=== PATIENT | female | born 1940 | race Caucasian/White ===

== ENCOUNTER 2016-05-05 15:48 | Emergency (ER) | payer MEDICARE ==
[2016-05-15 15:51] VITALS: BMI 24.1
== END 2016-05-05 18:00 | disposition home or self-care (01) ==
LOC: D.ER 15:48
DX: S22.059A Unspecified fracture of T5-T6 vertebra, initial encounter for closed fracture (principal); S22.089A Unspecified fracture of T11-T12 vertebra, initial encounter for closed fracture; X58.XXXA Exposure to other specified factors, initial encounter; Y93.89 Activity, other specified; Y92.89 Other specified places as the place of occurrence of the external cause; I10 Essential (primary) hypertension; E78.00 Pure hypercholesterolemia, unspecified

== ENCOUNTER → 2016-05-09 11:20 | Outpatient (CLI) | payer MEDICARE ==
[~2016-05-09 11:20] MED LIST: BAYER CHEWABLE81 MG PO; FELODIPINE ER10 MG PO; LIPITOR80 MG PO; PRINIVIL20 MG PO; PROLIA INJ 660 MG/M1 IJ; VOLTAREN75 MG PO; ZETIA10 MG PO
[2016-05-15 15:51] VITALS: BMI 24.1
== END | disposition home or self-care (01) ==
LOC: D.MRI 11:20
DX: S22.089A Unspecified fracture of T11-T12 vertebra, initial encounter for closed fracture (principal)

== ENCOUNTER 2016-05-14 12:45 | Inpatient (IN) | payer MEDICARE ==
[~2016-05-14] VITALS: Ht 154.9 cm; Wt 61.0 kg
--- NOTE | ~2016-05-14 | CN ---
PATIENT NAME:FOSTER DUQUE MEDICAL RECORD: [id number] : 42 LOCATION:[id number] ADMIT DATE: 05/14/16 ACCOUNT: [id number] CONSULTING PHYSICIAN: ANNMARIE KRISHNA MD REFERRING PHYSICIAN: KONG RAWLS MD DATE OF CONSULTATION: 05/24/2016 CONSULT REQUESTING PHYSICIAN: Kong Rawls MD REASON FOR CONSULTATION: Acute stridor and shortness of breath. HISTORY OF PRESENT ILLNESS: Ms. Duque is a 76-year-old female, who was admitted on 05/14/2016 with acute mental status changes, dehydration, hyponatremia and ileus. The patient underwent colonoscopy today and post-procedure, the patient has a stridor and shortness of breath. She was given racemic nebulizer and methylprednisolone IV, now she is feeling a little bit better. The patient is confused and she is a very poor historian. According to the , she is smoking 2-3 packs per day for more than 50 years. The patient had no documented COPD. She is not on any home nebulizer. She is not on oxygen. The patient denies any chest pain. REVIEW OF SYSTEMS: Mainly in the history of present illness. PAST MEDICAL HISTORY: 1. Hypertension. 2. History of CVA and TIA in the past. 3. History of vertigo. PAST SURGICAL HISTORY: 1. Hysterectomy. 2. She has a tummy tuck surgery. 3. D&C. ALLERGIES: SHE IS ALLERGIC TO FISH DERIVED CALCIUM AND INFLUENZA VIRUS VACCINE. PRESENT MEDICATIONS: On Pluristem Therapeuticstech was reviewed. PERSONAL AND SOCIAL HISTORY: The patient is . She lives with her . She is smoking more than 653-ounh-cebj history of smoking. She is also drinking. FAMILY HISTORY: Significant for lung disease and cancer. PHYSICAL EXAMINATION: GENERAL: Now, the patient is lying comfortably. She is not in acute distress. VITAL SIGNS: The blood pressure is 166/61, pulse is 111, respirations 20, temperature is 97.9, and SpO2 is 90% on 3 liter nasal cannula. HEENT: Conjunctivae pink, sclerae nonicteric. NECK: Neck is supple, no JVD. CHEST: The chest excursion is minimal on both sides. There is wheeze on forceful expiration. There are crackles at the left base. HEART: Rhythm regular, normal sound, no murmur. ABDOMEN: Abdomen is soft. Bowel sounds are muffled. There is no tenderness. RECTAL: Deferred. EXTREMITIES: No cyanosis. No clubbing. No pedal edema. CONSULT REPORT [id number] FOSTER DUQUE SKIN: The skin is warm and normal turgor. CENTRAL NERVOUS SYSTEM: The patient is awake and alert. There is no obvious cranial nerve abnormality. The patient is confused. CHEST RADIOGRAPH: There is atelectasis in the left lower lobe. OTHER LABORATORY DATA: CBC: WBC 6.7, hemoglobin is 8.3, and hematocrit is 26.3. Chemistry: Sodium is 146, potassium 3, chloride 111, and bicarbonate is 23.5. ABG: The pH is 7.46, pCO2 is 31.1, pO2 is 64, and bicarb is 22.4. IMPRESSION: 1. Acute hypoxic respiratory failure. 2. Stridor post-procedure, possible vocal cord spasm, aspirating her own secretions secondary to conscious sedation and post-colonoscopy. 3. Chronic obstructive pulmonary disease, acute exacerbation. 4. Tobacco dependence syndrome. 5. Anemia. 6. Hypernatremia of 146. 7. Hypokalemia. 8. Ileus and intestinal obstruction. 9. Hocqi-wl-dtxqelv kidney disease. 10. Metabolic encephalopathy. RECOMMENDATION: 1. Start methylprednisolone IV, Brovana, budesonide nebulizer, albuterol/ipratropium nebulizer. 2. Continue Levaquin and Flagyl. 3. Follow up labs in the morning. 4. Adjust IV fluid. 5. For hypernatremia, Dr. Salmeron and GI is on the case. Dr. Rawls, once again thank you for involving me in the care of Ms. Duqeu. The critical care time is 45 minutes. TRANSINT:[id number] Voice Confirmation ID: [id number] DOCUMENT ID: [id number] ANNMARIE KRISHNA MD CC: KONG RAWLS MD [id number] DICTATION DATE: 05/24/16 1548 RADIOLOGY TRANSCRIPTIONIST: 05/24/16 1901 ADM IN [facility] [address] [place] [address]
[2016-05-14 15:17] LABS: HEMATOCRIT 38.2 % (36.0-48.0); MCH 29.8 pg (26.0-34.0); MCV 87.6 fL (80.0-100.0); MEAN PLATELET VOLUME 11.5 fL (7.4-10.4); PLATELET COUNT 373 10x3/uL (130-400); RBC 4.36 10x6/uL (4.00-5.40); RDW 14.7 % (11.5-14.5); WBC 15.4 10x3/uL (4.8-10.8)
[2016-05-14 15:41] LABS: ALBUMIN 2.4 g/dL (3.4-5.0); ALKALINE PHOSPHATASE 343 U/L (46-116); ALT (SGPT) 86 U/L (10-68); BILIRUBIN - TOTAL 1.36 mg/dL (0.2-1.3); CALC OSMOLALITY 293 mosm/kg (275-300); CALCIUM 8.3 mg/dL (8.5-10.1); CARBON DIOXIDE 17.8 mmol/L (21.0-32.0); CHLORIDE - SERUM 90 mmol/L (98-107); CREATININE - SERUM 2.8 mg/dL (0.6-1.3); GLUCOSE 110 mg/dL (74-106); PROTEIN - SERUM 6.5 g/dL (6.4-8.2); SODIUM 128 mmol/L (136-145); UREA NITROGEN 114 mg/dL (7-18); eGFR NON AFRICAN AMERICAN 17 mL/min (90-120)
[2016-05-14 15:48] LABS: CREATINE KINASE 302 UL (21-215); LYMPHOCYTES 15 % (15-50); MONOCYTES 4 % (2-11); NEUTROPHILS 48 % (40-80); PLATELET ESTIMATE NORMAL; PRO BNP 2796 pg/mL (0-125)
[2016-05-14 16:08] LABS: TROPONIN-I < 0.017 ng/mL (0.000-0.060)
[2016-05-14 16:09] LABS: MAGNESIUM - SERUM 3.5 mg/dL (1.8-2.4)
[2016-05-14 16:18] LABS: AMORPHOUS SEDIMENT <1+ /lpf (NONE SEEN); APPEARANCE CLOUDY (CLEAR); BACTERIA MANY /hpf (NONE SEEN); BILIRUBIN NEGATIVE (NEGATIVE); COLOR DK YELLOW (YELLOW); EPITHELIAL CELLS 0-5 /hpf (0-5); GLUCOSE NEGATIVE (NEGATIVE); KETONE NEGATIVE (NEGATIVE); LEUKOCYTE ESTERASE TRACE (NEGATIVE); NITRITE NEGATIVE (NEGATIVE); PROTEIN NEGATIVE (NEGATIVE); RED CELLS - URINE 0-5 /hpf (0-5); UROBILINOGEN NORMAL (NORMAL); WHITE CELLS - URINE 0-5 /hpf (0-5)
[2016-05-14 16:31] LABS: CKMB 3.3 U/L (0.0-3.6)
--- NOTE | 2016-05-14 18:55 | NUR ---
Patient Name: FOSTER DUQUE Admission Status: ER Accout number: [id number] Admission Date: 05-14-2016 : 1940 Admission Diagnosis: AMS, Dehydration Attending: KESHA Current LOS: 1 Anticipated DC Date: 05-17-2016 Planned Disposition: Home Primary Insurance: [facility] Discharge Planning Comments: CM met with patient and her spouse to completes initial discharge assessment. Patient confused and not able to answer questions. Spouse reports patient lives at home with him and is usually independent in her care. He reports new onset of confusion the past two weeks. She had a stroke several years ago and has weakness on her left side but is still normally able to do all her ADL's. Patient does not use dme equipment nor does she use community resources. When patient is stable for discharge the goal is for patient to return home with him. He is unsure of any dc needs at this time. Opera Singer: Joana Collazo RN, [facility] [phone] Is the patient Alert and Oriented? No * PCP Dr. Cooper * Pharmacy [facility] * Preadmission Environment Home with Family * ADLs Independent * Equipment None * List name and contact numbers for known caregivers / representatives who currently or will assist patient after discharge: Daren Duque - spouse - [phone] * Community resources currently utilized None * Additional services required to return to the preadmission environment? Yes * Can the patient safely return to the preadmission environment? Yes * Has this patient been hospitalized within the prior 30 days at any hospital? No
[2016-05-14 19:00] VITALS: BP 94/56
[2016-05-15] MEDS ORDERED: VOLTAREN75 MG PO (02:00)
--- NOTE | 2016-05-15 02:14 | NUR ---
REC'D PATIENT LYING SEMI FOWLERS IN BED. IN ROOM WITH. DID THE QUICK START AND ASSESSMENT HISTORY. INFORMED NURSE CESAR YAN ABT THE PHYICAL ASSESSMENT THAT NEEDS TO BE DONE. NO DISTRESS NOTED. PATIENT ALERT AND ORIENTED X3. HAS A BYNUM. HAS A YELLOW BAND ON AND AN ALLERGY BAND ON WILL PLACE A YELLOW STAR ON THE DOOR TO INITIATE FALL PRECAUTIONS. DENIES NEEDS AT THIS TIME. INTRUCTED TO CALL IF NEEDED ANYTHING. VERBALIZED UNDERSTANDING. BED LOW, LOCKED, CALL LIGHT IN REACH.
[2016-05-15 04:00] VITALS: BP 82/43
[2016-05-15 06:20] LABS: ANION GAP 24.8 mmol/L (8-16); CALCIUM 7.2 mg/dL (8.5-10.1); CARBON DIOXIDE 14.9 mmol/L (21.0-32.0); CREATININE - SERUM 2.8 mg/dL (0.6-1.3)
[2016-05-15 06:23] LABS: POTASSIUM - SERUM 3.7 mmol/L (3.5-5.1)
--- NOTE | 2016-05-15 07:30 | NUR ---
AWAKE AND ALERT AT THIS TIME. CONFUSED TO TIME AND SITUATION. BED ALARM ON AND IN WORKING ORDER. SCD'S APPLIED TO BLE PER ORDER. ASSESSMENT PERFORMED PER FLOWSHEET. CALL LIGHT IN REACH, WILL CONTINUE WITH PLAN OF CARE.
[2016-05-15 08:01] VITALS: BMI 24.2
[2016-05-15 08:04] VITALS: BP 81/41
--- NOTE | 2016-05-15 09:00 | NUR ---
URINE CULTURE OBTAINED AT THIS TIME. DR SEGURA AT BEDSIDE EVALUATING PATIENT. WILL CONTINUE WITH PLAN OF CARE.
[2016-05-15] MEDS ORDERED: FELODIPINE ER10 MG PO (09:32)
[2016-05-15] MEDS ORDERED: ZETIA10 MG PO (09:33)
[2016-05-15] MEDS ORDERED: PRINIVIL20 MG PO (09:33)
[2016-05-15] MEDS ORDERED: BAYER CHEWABLE81 MG PO (09:33)
[2016-05-15] MEDS ORDERED: LIPITOR80 MG PO (09:33)
[2016-05-15] MEDS ORDERED: PROLIA INJ 660 MG/M1 IJ (09:34)
[2016-05-15 11:47] LABS: PROTEIN - URINE 161.4 mg/dL (0.0-11.9)
--- NOTE | 2016-05-15 11:47 | NUR ---
ORDERED FLUID BOLUS STARTED AT THIS TIME. BP 101/50 AND HEART RATE 113. HAVING AN ABDOMINAL ULTRASOUND AT THIS TIME. WILL CONTINUE WITH PLAN OF CARE.
[2016-05-15 11:50] LABS: AMYLASE - SERUM 47 U/L (25-115); LIPASE 173 U/L (73-393)
[2016-05-15 12:11] VITALS: BP 86/49
[2016-05-15 12:49] VITALS: BP 106/55
--- NOTE | 2016-05-15 12:49 | NUR ---
BOLUS COMPLETE ORDERED AT THIS TIME. BP 106/55 AND PULSE 99.
[2016-05-15 13:02] LABS: ERYTHROCYTE SEDIMENTATION RATE 16 mm/hr (0-30)
[2016-05-15 15:10] VITALS: BP 132/70
[2016-05-15 15:51] VITALS: Ht 154.9 cm; Wt 61.0 kg
[2016-05-15 17:28] LABS: APPEARANCE HAZY (CLEAR); BILIRUBIN NEGATIVE (NEGATIVE); COLOR DK YELLOW (YELLOW); GLUCOSE NEGATIVE (NEGATIVE); KETONE NEGATIVE (NEGATIVE); LEUKOCYTE ESTERASE TRACE (NEGATIVE); NITRITE NEGATIVE (NEGATIVE); PROTEIN TRACE mg/dL (NEGATIVE); SPECIFIC GRAVITY 1.015 (1.005-1.020); UROBILINOGEN NORMAL (NORMAL)
[2016-05-15 17:29] LABS: AMORPHOUS SEDIMENT >1+ /lpf (NONE SEEN); BACTERIA MODERATE /hpf (NONE SEEN); EPITHELIAL CELLS 0-5 /hpf (0-5); RED CELLS - URINE 0-5 /hpf (0-5); WHITE CELLS - URINE 0-5 /hpf (0-5)
[2016-05-15 17:36] LABS: PROTEIN - URINE 112.1 mg/dL (0.0-11.9)
--- NOTE | 2016-05-15 23:14 | NUR ---
REC'D PATIENT LYING IN BED WATCHING TV. NO DISTRESS NOTED. ALERT AND ORIENTED X4. DENIED PAIN AT THIS TIME. DENIED ANY NEEDS AT THIS TIME. INSTRUCTED TO CALL IF NEEDED ANYTHING. BED LOW, LOCKED, CALL LIGHT IN REACH, ALARM ON.
[2016-05-16] VITALS: BP 99/601
--- NOTE | 2016-05-16 01:55 | NUR ---
HAD A BATH AND A FULL BED CHANGE. IS RESTING COMFORTABLY IN BED. DENIES NEEDS AT THIS TIME. BED LOW, LOCKED, CALL LIGHT IN REACH, ALARM ON.
--- NOTE | 2016-05-16 03:00 | NUR ---
PT IN BED WITH NO DISTRESS. RESPIRATIONS ARE EVEN AND UNLABORED. SIDE RAILS X 2. BED IS LOW. CALL LIGHT IN REACH.
--- NOTE | 2016-05-16 03:34 | NUR ---
CHANGED PATIENT HAD LOOSE BM, CHANGED GOWN. NO DISTRESS NOTED. DENIED FURTHER NEEDS, INTRUCTED TO CALL IF NEEDED ANYTHING. BED LOW, LOCKED, CALL LIGHT IN REACH, REPO, ALARM ON.
[2016-05-16 04:00] VITALS: BP 95/51
[2016-05-16 07:19] LABS: BASOPHILS 0 % (0.0-2.0); HEMATOCRIT 28.1 % (36.0-48.0); HEMOGLOBIN 9.9 g/dL (12-16); IMMATURE GRANULOCYTES 1.4 % (0-5); LYMPHOCYTES 4.5 % (15-50); MCH 29.1 pg (26.0-34.0); MCHC 35.2 g/dL (31.0-37.0); MCV 82.6 fL (80.0-100.0); MEAN PLATELET VOLUME 10.4 fL (7.4-10.4); NEUTROPHILS 91.1 % (40-80); PLATELET COUNT 220 10x3/uL (130-400); RDW 14.4 % (11.5-14.5); WBC 8.1 10x3/uL (4.8-10.8)
[2016-05-16 08:09] LABS: BILIRUBIN - DIRECT 0.57 mg/dL (0.00-0.30); BILIRUBIN - INDIRECT 0.22 mg/dL (0.00-1.00); BILIRUBIN - TOTAL 0.79 mg/dL (0.2-1.3); MAGNESIUM - SERUM 2.7 mg/dL (1.8-2.4); PHOSPHOROUS 4.6 mg/dL (2.5-4.9); PROTEIN - SERUM 5.4 g/dL (6.4-8.2)
[2016-05-16 08:10] LABS: ALBUMIN 1.4 g/dL (3.4-5.0); ANION GAP 13.9 mmol/L (8-16); CARBON DIOXIDE 25.7 mmol/L (21.0-32.0); CREATININE - SERUM 1.8 mg/dL (0.6-1.3)
[2016-05-16 08:11] LABS: CALCIUM 6.2 mg/dL (8.5-10.1); POTASSIUM - SERUM 2.6 mmol/L (3.5-5.1)
[2016-05-16 08:39] VITALS: BP 105/49
[2016-05-16 10:20] LABS: CREATINE KINASE 330 UL (21-215)
[2016-05-16 10:24] LABS: CKMB 3.5 U/L (0.0-3.6)
[2016-05-16 11:17] LABS: ANA REFLEX - DIRECT Negative (Negative); HEPATITIS C ANTIBODY <0.1 (0.0-0.9)
[2016-05-16 15:45] LABS: BASOPHILS 0.1 % (0.0-2.0); EOSINOPHILS 1.4 % (0-7); HEMATOCRIT 30.7 % (36.0-48.0); HEMOGLOBIN 10.7 g/dL (12-16); IMMATURE GRANULOCYTES 0.8 % (0-5); LYMPHOCYTES 6.7 % (15-50); MCH 29.2 pg (26.0-34.0); MCHC 34.9 g/dL (31.0-37.0); MCV 83.9 fL (80.0-100.0); MEAN PLATELET VOLUME 10.9 fL (7.4-10.4); MONOCYTES 1.8 % (2-11); NEUTROPHILS 89.2 % (40-80); PLATELET COUNT 216 10x3/uL (130-400); RBC 3.66 10x6/uL (4.00-5.40); RDW 14.3 % (11.5-14.5); WBC 7.1 10x3/uL (4.8-10.8)
[2016-05-16 17:04] VITALS: BP 88/42
[2016-05-16 17:50] VITALS: BP 92/57
[2016-05-16 18:09] LABS: SPE - A/G RATIO 0.6 (0.7-1.7); SPE - ALBUMIN 1.9 g/dL (2.9-4.4); SPE - ALPHA-1 GLOBULIN 0.7 g/dL (0.0-0.4); SPE - ALPHA-2 GLOBULIN 1.4 g/dL (0.4-1.0); SPE - BETA GLOBULIN 0.7 g/dL (0.7-1.3); SPE - GAMMA GLOBULIN 0.6 g/dL (0.4-1.8); SPE - M-SPIKE Not Observed g/dL (Not Observed); SPE - TOTAL PROTEIN 5.2 g/dL (6.0-8.5)
[2016-05-16 19:00] VITALS: BP 89/52
--- NOTE | 2016-05-16 20:54 | NUR ---
PATIENT RESTING IN BED. ALERT AND ORIENTED. ASSISTED TO RIGHT SIDE. SCHEDULED MEDICATION GIVEN. SHIFT ASSESSMENT COMPLETED. DENIES ANY NEEDS AT THIS TIME. BED LOW. CALL LIGHT IN REACH
[2016-05-16 21:34] LABS: BASOPHILS 0.1 % (0.0-2.0); EOSINOPHILS 1.4 % (0-7); HEMATOCRIT 28.1 % (36.0-48.0); IMMATURE GRANULOCYTES 0.7 % (0-5); MCH 29.4 pg (26.0-34.0); MCHC 35.6 g/dL (31.0-37.0); MCV 82.6 fL (80.0-100.0); MEAN PLATELET VOLUME 10.2 fL (7.4-10.4); MONOCYTES 8.3 % (2-11); NEUTROPHILS 83.5 % (40-80); PLATELET COUNT 194 10x3/uL (130-400); RDW 14.5 % (11.5-14.5); WBC 7.7 10x3/uL (4.8-10.8)
[2016-05-17] VITALS: BP 92/45
[2016-05-17 04:00] VITALS: BP 87/57
--- NOTE | 2016-05-17 04:00 | NUR ---
PATIENT SLEEPING WITH NO DISTRESS NOTED. AGREE WITH DOCENT COORDINATOR ASSESSMENT.
[2016-05-17 05:16] LABS: BASOPHILS 0.3 % (0.0-2.0); EOSINOPHILS 1.8 % (0-7); HEMATOCRIT 29.6 % (36.0-48.0); HEMOGLOBIN 10.3 g/dL (12-16); IMMATURE GRANULOCYTES 0.3 % (0-5); LYMPHOCYTES 5.6 % (15-50); MCH 28.9 pg (26.0-34.0); MCHC 34.8 g/dL (31.0-37.0); MCV 82.9 fL (80.0-100.0); MEAN PLATELET VOLUME 10.2 fL (7.4-10.4); PLATELET COUNT 195 10x3/uL (130-400); RBC 3.57 10x6/uL (4.00-5.40); RDW 14.3 % (11.5-14.5); WBC 7.4 10x3/uL (4.8-10.8)
[2016-05-17 05:34] LABS: % SATURATION 11 % (15-55); IRON 19 ug/dl (35-150); TOTAL IRON BIND CAPACITY 159 ug/dl (260-445); UNSAT IRON BIND CAPACITY 140 ug/dl (150-375)
[2016-05-17 06:08] LABS: ALBUMIN 1.3 g/dL (3.4-5.0); ANION GAP 14.5 mmol/L (8-16); BILIRUBIN - TOTAL 0.9 mg/dL (0.2-1.3); CARBON DIOXIDE 27.1 mmol/L (21.0-32.0); CREATININE - SERUM 1.5 mg/dL (0.6-1.3); POTASSIUM - SERUM 3.6 mmol/L (3.5-5.1); PROTEIN - SERUM 4.6 g/dL (6.4-8.2)
[2016-05-17 06:09] LABS: CALCIUM 6.9 mg/dL (8.5-10.1)
[2016-05-17 08:33] VITALS: BP 98/58
[2016-05-17 12:00] VITALS: BP 95/51
--- NOTE | 2016-05-17 14:27 | NUR ---
NUTRITION MONITORING & EVAL CHART REVIEWED, PT VISIT, SPOKE WITH SPOUSE. RENAL DIET WITH VERY POOR PO INTAKE. SPOUSE REPORTS PT HAS HAD POOR PO INTAKE PAST TWO WEEKS. NOW ASSESSED WITH SEVERE MALNUTRITION OF ACUTE ILLNESS AEB 1)=/< 50% INTAKE EST ENERGY NEEDS =/> 5 DAYS 2)REDUCED STICK ROLLER STRENGTH WILL CONTINUE TO PROVIDE DIET, ENCOURAGE PO INTAKE. RD FOLLOWING
[2016-05-17 14:58] LABS: BASOPHILS 0.4 % (0.0-2.0); EOSINOPHILS 0.5 % (0-7); HEMATOCRIT 31.2 % (36.0-48.0); HEMOGLOBIN 10.6 g/dL (12-16); IMMATURE GRANULOCYTES 0.7 % (0-5); LYMPHOCYTES 6.6 % (15-50); MEAN PLATELET VOLUME 10.2 fL (7.4-10.4); MONOCYTES 9.4 % (2-11); NEUTROPHILS 82.4 % (40-80); PLATELET COUNT 167 10x3/uL (130-400); RBC 3.66 10x6/uL (4.00-5.40); RDW 14.6 % (11.5-14.5); WBC 8.5 10x3/uL (4.8-10.8)
[2016-05-17 15:04] LABS: MCV 85.2 fL (80.0-100.0)
[2016-05-17 15:17] LABS: CREATININE - URINE 27.3 mg/dL (30-125); PROTEIN - URINE 90.2 mg/dL (0.0-11.9)
[2016-05-17 20:00] VITALS: BP 159/72
[2016-05-17 20:45] LABS: IMMUNOFIXATION Note: (()); IMMUNOGLOBULIN A 124 mg/dL (64-422); IMMUNOGLOBULIN G 324 mg/dL (700-1600); IMMUNOGLOBULIN M 178 mg/dL (26-217); SPE - A/G RATIO 0.6 (0.7-1.7); SPE - ALBUMIN 1.6 g/dL (2.9-4.4); SPE - ALPHA-1 GLOBULIN 0.6 g/dL (0.0-0.4); SPE - ALPHA-2 GLOBULIN 1.2 g/dL (0.4-1.0); SPE - BETA GLOBULIN 0.6 g/dL (0.7-1.3); SPE - GAMMA GLOBULIN 0.4 g/dL (0.4-1.8); SPE - M-SPIKE Not Observed g/dL (Not Observed); SPE - TOTAL PROTEIN 4.3 g/dL (6.0-8.5)
--- NOTE | 2016-05-17 20:47 | NUR ---
AWAKE WITH NO COMPLAINTS.IV INFUSING TO UPPER LEFT ARM WIHTOUT REDNESS OR EDEMA NOTED. CL IN REACH.
[2016-05-17 21:35] LABS: BASOPHILS 0.6 % (0.0-2.0); EOSINOPHILS 0.4 % (0-7); HEMATOCRIT 32.7 % (36.0-48.0); HEMOGLOBIN 11.3 g/dL (12-16); IMMATURE GRANULOCYTES 1.2 % (0-5); LYMPHOCYTES 5.1 % (15-50); MCH 29.2 pg (26.0-34.0); MCHC 34.6 g/dL (31.0-37.0); MCV 84.5 fL (80.0-100.0); MEAN PLATELET VOLUME 10.5 fL (7.4-10.4); MONOCYTES 6.9 % (2-11); NEUTROPHILS 85.8 % (40-80); PLATELET COUNT 179 10x3/uL (130-400); RBC 3.87 10x6/uL (4.00-5.40); RDW 14.6 % (11.5-14.5); WBC 9.1 10x3/uL (4.8-10.8)
[2016-05-18] VITALS: BP 161/68
--- NOTE | 2016-05-18 00:47 | NUR ---
WATCHING TV QUIETLY. NO COMPLAINTS VOICED.
--- NOTE | 2016-05-18 03:02 | NUR ---
PATIENT SLEEPING SUPINE IN BED. HOB 30 DEGREES. 0 S/S OF DISTRESS. SCD'S IN ROOM BUT OFF. CALL LIGHT WITHIN REACH.
[2016-05-18 04:00] VITALS: BP 144/86
--- NOTE | 2016-05-18 06:05 | NUR ---
NO CHANGE IN ASSESSMENT.
[2016-05-18 06:36] LABS: ALBUMIN 1.5 g/dL (3.4-5.0); ANION GAP 14.4 mmol/L (8-16); BILIRUBIN - TOTAL 1.3 mg/dL (0.2-1.3); CARBON DIOXIDE 26.7 mmol/L (21.0-32.0); POTASSIUM - SERUM 3.1 mmol/L (3.5-5.1); PROTEIN - SERUM 5.2 g/dL (6.4-8.2)
[2016-05-18 06:39] LABS: CALCIUM 8.9 mg/dL (8.5-10.1); HEMATOCRIT 32.6 % (36.0-48.0); HEMOGLOBIN 11.2 g/dL (12-16); MCH 29.2 pg (26.0-34.0); MCHC 34.4 g/dL (31.0-37.0); MCV 85.1 fL (80.0-100.0); MEAN PLATELET VOLUME 10.9 fL (7.4-10.4); PLATELET COUNT 174 10x3/uL (130-400); RBC 3.83 10x6/uL (4.00-5.40); RDW 14.8 % (11.5-14.5); WBC 9.8 10x3/uL (4.8-10.8)
[2016-05-18 07:16] LABS: LYMPHOCYTES 6 % (15-50); MONOCYTES 8 % (2-11); NEUTROPHILS 54 % (40-80); PLATELET ESTIMATE NORMAL; PLATELET MORPHOLOGY NORMAL PLT MORPH
[2016-05-18 08:20] VITALS: BP 168/77
[2016-05-18 12:36] VITALS: BP 152/74
[2016-05-18 14:23] LABS: UPE RAND - ALPHA 1 GLOBULIN 3.4 % (()); UPE RAND - ALPHA 2 GLOBULIN 29.7 % (()); UPE RAND - BETA GLOBULIN 23.5 % (()); UPE RAND - GAMMA GLOBULIN 25.4 % (())
[2016-05-18 16:08] VITALS: BP 141/69
[2016-05-18 18:43] LABS: BASOPHILS 0.5 % (0.0-2.0); EOSINOPHILS 0.7 % (0-7); HEMOGLOBIN 10.3 g/dL (12-16); IMMATURE GRANULOCYTES 1.5 % (0-5); LYMPHOCYTES 10.2 % (15-50); MCHC 34.3 g/dL (31.0-37.0); MCV 84.5 fL (80.0-100.0); MEAN PLATELET VOLUME 10.6 fL (7.4-10.4); MONOCYTES 9.9 % (2-11); NEUTROPHILS 77.2 % (40-80); PLATELET COUNT 157 10x3/uL (130-400); RBC 3.55 10x6/uL (4.00-5.40); RDW 14.4 % (11.5-14.5); WBC 9.4 10x3/uL (4.8-10.8)
[2016-05-18 20:00] VITALS: BP 153/59
[2016-05-18 20:08] LABS: IMMUNOFIXATION - URINE Note: (())
[2016-05-18 22:53] LABS: BASOPHILS 0.4 % (0.0-2.0); EOSINOPHILS 1.1 % (0-7); HEMATOCRIT 29.1 % (36.0-48.0); HEMOGLOBIN 9.9 g/dL (12-16); IMMATURE GRANULOCYTES 0.4 % (0-5); LYMPHOCYTES 10.2 % (15-50); MCH 28.9 pg (26.0-34.0); MCV 85.1 fL (80.0-100.0); MEAN PLATELET VOLUME 11.2 fL (7.4-10.4); MONOCYTES 8.8 % (2-11); NEUTROPHILS 79.1 % (40-80); PLATELET COUNT 147 10x3/uL (130-400); RBC 3.42 10x6/uL (4.00-5.40); RDW 14.5 % (11.5-14.5)
[2016-05-19] VITALS: BP 161/76
[2016-05-19 03:24] LABS: BASOPHILS 0.2 % (0.0-2.0); EOSINOPHILS 0.8 % (0-7); HEMATOCRIT 29.7 % (36.0-48.0); IMMATURE GRANULOCYTES 0.8 % (0-5); LYMPHOCYTES 10.6 % (15-50); MCH 28.7 pg (26.0-34.0); MCHC 33.7 g/dL (31.0-37.0); MCV 85.3 fL (80.0-100.0); MONOCYTES 14.6 % (2-11); PLATELET COUNT 127 10x3/uL (130-400); RBC 3.48 10x6/uL (4.00-5.40); RDW 14.5 % (11.5-14.5); WBC 6.4 10x3/uL (4.8-10.8)
[2016-05-19 03:43] LABS: ALBUMIN 1.3 g/dL (3.4-5.0); BILIRUBIN - TOTAL 1.44 mg/dL (0.2-1.3); CALCIUM 8.4 mg/dL (8.5-10.1); CARBON DIOXIDE 27.8 mmol/L (21.0-32.0); CREATININE - SERUM 0.8 mg/dL (0.6-1.3); PROTEIN - SERUM 5.6 g/dL (6.4-8.2)
[2016-05-19 03:44] LABS: ANION GAP 10.1 mmol/L (8-16); POTASSIUM - SERUM 2.9 mmol/L (3.5-5.1)
[2016-05-19 05:00] VITALS: BP 167/72
--- NOTE | 2016-05-19 07:30 | NUR ---
RECIEVED PT DURING WALKING ROUNDS, PT RESTING IN BED WITH COMPLAINTS OF PAIN IN HER BACK OF A 4 ON A SCALE OF 1-10. READJUSTED PT IN BED. ASSESSMENT DONE PER FLOWSHEET. BED IN LOW POSITION AND CALL LIGHT WITHIN REACH. WILL CONTINUE TO MONITOR.
[2016-05-19 07:35] VITALS: BP 177/72
[2016-05-19 09:47] LABS: BASOPHILS 2.1 % (0.0-2.0); EOSINOPHILS 0.6 % (0-7); HEMATOCRIT 30.2 % (36.0-48.0); HEMOGLOBIN 10.5 g/dL (12-16); IMMATURE GRANULOCYTES 4.1 % (0-5); LYMPHOCYTES 12.6 % (15-50); MCH 29.3 pg (26.0-34.0); MCHC 34.8 g/dL (31.0-37.0); MCV 84.4 fL (80.0-100.0); MEAN PLATELET VOLUME 10.5 fL (7.4-10.4); MONOCYTES 16.8 % (2-11); NEUTROPHILS 63.8 % (40-80); PLATELET COUNT 124 10x3/uL (130-400); RBC 3.58 10x6/uL (4.00-5.40); RDW 14.2 % (11.5-14.5); WBC 6.7 10x3/uL (4.8-10.8)
--- NOTE | 2016-05-19 09:50 | NUR ---
BYNUM OUT PER ORDER AT THIS TIME, EMPTIED 400CC FROM BYNUM. PT TOLERATED WELL. ATTEMPTED TO ASSIST PT TO THE CHAIR AND WHEN PT STOOD UP SHE BEGAN TO DRIP BURGUNDY COLORED STOOL ON THE FLOOR. ASSISSTED PT TO THE BATHROOM FOR A SHOWER, WILL INFORM DOCTOR AND CONTINUE TO MONITOR.
--- NOTE | 2016-05-19 10:42 | NUR ---
IV ACCESS-22 GAUGE INSERTED IN LEFT FOREARM. HALEIGH CARDOSO RN
[2016-05-19 11:35] VITALS: BP 162/72
--- NOTE | 2016-05-19 14:20 | NUR ---
PT HAD ANOTHER LOOSE STOOL AT THIS TIME, INFORMED DR. TATUM WITH GI AT THIS TIME, STATED HE WOULD PLACE ORDERS NEEDED. BED IN LOW POSITION AND CALL LIGHT WITHIN REACH. WILL CONTINUE TO MONITOR.
--- NOTE | 2016-05-19 14:54 | EC ---
PATIENT:FOSTER DUQUE DATE OF SERVICE: 05/14/16 SEX: F MEDICAL RECORD: [id number] DATE OF : 42 LOCATION:D.MS [facility] AGE OF PATIENT: 76 ADMISSION DATE: 05/14/16 REFERRING PHYSICIAN: INTERPRETING PHYSICIAN: CLAUDIA DUNBAR M.D. ECHOCARDIOGRAM REPORT ECHO CHARGES 4 ECHO COMPLETE CLINICAL DIAGNOSIS: HYPOTENSION ECHOCARDIOGRAPHIC MEASUREMENTS (adult normal given) AC root (d.<3.7cm) 2.7 LV Septum d (<1.2 cm> 1.5 Valve Excursion 1.5 LV Septum (systole) 1.9 Left Atria (s.<4.0cm> 4.1 LVPW d(<1.2cm) 1.3 RV (d.<2.3cm) 2.3 LVPW (sytole) 1.8 LV diastole(<5.6CM) 4.7 MV E-F(>70mm/sec) LV systole 2.9 LVOT Diameter 1.7 MV exc.(>10mm) Est.ejection fraction (50-75%) Pericardial Effusion N DOPPLER: LVIT A 133 E 96.0 LA RVSP 43.0 LVOT 220 AOP1/2T Asc. Ao 343 RVOT 79.0 RA PA 126 AV Gradient Peak 47.2 AV Mean 26.3 AV Area 1.4 MV Gradient Peak 10.1 MV Mean 3.7 MV Area COMMENTS: Help Desk Analyst: Anny ALOE Minute Clerk For Basic Traffic:Adina Dunbar TAPE# PACS DATE OF SERVICE: 05/17/2016 REFERRING PHYSICIAN: Michael Cooper MD INDICATION: Hypotension. DESCRIPTION: Left ventricle [id number] left ventricular hypertrophy. No wall motion abnormalities were seen. His ejection fraction is 60%. Mitral valve is structurally normal. There is no regurgitation or prolapse seen. Left atrium is mildly dilated. The aortic valve leaflets are thickened. The peak ECHOCARDIOGRAM REPORT [id number] FOSTER DUQUE gradient across the valve is 47 mmHg with a mean of 26 mmHg. Valve area was calculated at 1.4 cm-squared. Right ventricle is normal in size and function. Tricuspid valve is structurally normal. There is mild regurgitation noted. Right ventricular systolic pressure is elevated at 43 mmHg. There is no pericardial effusion seen. IMPRESSION: 1. Left ventricular hypertrophy with preserved ejection fraction of 60%. 2. Moderate aortic stenosis by gradient. 3. Mild tricuspid regurgitation with elevated pulmonary pressures. TRANSINT:[id number] Voice Confirmation ID: [id number] DOCUMENT ID: [id number] CLAUDIA DUNBAR M.D. at 1454 CC: [id number] DICTATION DATE: 05/18/16 1020 INBOUND SALES CONSULTANT: 05/18/16 1229 ADM IN [facility] [address] [place] [address]
--- NOTE | 2016-05-19 15:50 | NUR ---
PT H&H RESULTED AT THIS TIME WITH MINIMAL CHANGE. WILL CONTINUE TO MONITOR.
[2016-05-19 15:55] VITALS: BP 126/64
[2016-05-19 16:06] LABS: BASOPHILS 0.3 % (0.0-2.0); EOSINOPHILS 1.5 % (0-7); HEMATOCRIT 28.1 % (36.0-48.0); HEMOGLOBIN 9.5 g/dL (12-16); IMMATURE GRANULOCYTES 1.1 % (0-5); LYMPHOCYTES 15.1 % (15-50); MCH 28.8 pg (26.0-34.0); MCHC 33.8 g/dL (31.0-37.0); MCV 85.2 fL (80.0-100.0); MONOCYTES 9.7 % (2-11); NEUTROPHILS 72.3 % (40-80); PLATELET COUNT 113 10x3/uL (130-400); RDW 14.5 % (11.5-14.5); WBC 6.1 10x3/uL (4.8-10.8)
--- NOTE | 2016-05-19 18:40 | NUR ---
ASSISTED PT TO THE BATHROOM FOR HER TO ATTEMPT TO PEE, SHE WAS UNABLE TO DO SO BUT STATED SHE DID NOT FEEL THE URGE. WILL BLADDER SCAN TO SEE TOTAL VOLUME.
--- NOTE | 2016-05-19 19:00 | NUR ---
BLADDER SCANNED PT AT THIS TIME, 592CC PRESENT IN THE BLADDER. PAGE PLACED TO DR. RAWLS TO RECIEVE FURTHER ORDERS. WILL CONTINUE TO MONITOR.
--- NOTE | 2016-05-19 19:15 | NUR ---
SPOKE WITH DR. RAWLS ABOUT THE PT NOT BEING ABLE TO URINATE, RECIEVED ORDERS TO WAIT APPROX 2-3 MORE HOURS, IF PT IS UNABLE TO URINATE THAN PREFORM IN AND OUT CATH. WILL PASS ALONG TO ACCOUNTING ASSISTANT NURSE.
[2016-05-19 20:00] VITALS: BP 142/67
[2016-05-19 21:49] LABS: BASOPHILS 0.3 % (0.0-2.0); EOSINOPHILS 1.3 % (0-7); HEMATOCRIT 31.4 % (36.0-48.0); HEMOGLOBIN 10.5 g/dL (12-16); IMMATURE GRANULOCYTES 0.7 % (0-5); MCH 28.8 pg (26.0-34.0); MCHC 33.4 g/dL (31.0-37.0); MCV 86.3 fL (80.0-100.0); NEUTROPHILS 71.7 % (40-80); PLATELET COUNT 128 10x3/uL (130-400); RBC 3.64 10x6/uL (4.00-5.40); RDW 14.4 % (11.5-14.5); WBC 6.2 10x3/uL (4.8-10.8)
[2016-05-20] VITALS: BP 144/69
[2016-05-20 04:00] VITALS: BP 153/81; BP 165/77
--- NOTE | 2016-05-20 06:52 | NUR ---
ASSESSED AT THE BEGINNING OF THE SHIFT. PT IS ALERTAND SOMEWHAT ORIENTED BUT SHOWS SOME CONFUSION AT TIMES. SHE HAS A VERY DISTENDED BELLY AND C/O OF TENDERNESS TO THE LOWER PART. SHE HAS BEEN AWAKE MOST OF THE NIGHT AND HAS MOVED ALL OVER HER BED, NEEDING TO BE REPOSITIONED EACH TIME. SHE VOIDED ONE TIME BUT IT WAS ONLY A LITTLE SO THIS MORNING AT ABOUT 0400 WE BLADDER SCANNED HER AND IT WAS OVER 600 MLS. AT THAT TIME AND IN AND OUT CATH WAS DONE AND WE GOT 900 MLS OF DARK URINE. SHE STILL COMPLAINED OF DISCOMFORT AND WAS GIVEN BUPRENEX ORDERED. LATER SHE STATED IT HAD NOT REALLY HELPED. AT THIS TIME SHE HAS BEEN REPOSITIONED AND PLACED IN A SITTING POSITION. THE BED IS LOW, RAILS UP X'S 2, BED ALARM IN PLACE AND CALL LIGHT AT HAND.
[2016-05-20 07:27] LABS: ALBUMIN 1.4 g/dL (3.4-5.0); ALKALINE PHOSPHATASE 134 U/L (46-116); ALT (SGPT) 48 U/L (10-68); BILIRUBIN - TOTAL 1.42 mg/dL (0.2-1.3); CALC OSMOLALITY 269 mosm/kg (275-300); CALCIUM 8.6 mg/dL (8.5-10.1); CARBON DIOXIDE 24.8 mmol/L (21.0-32.0); CHLORIDE - SERUM 98 mmol/L (98-107); CREATININE - SERUM 0.5 mg/dL (0.6-1.3); GLUCOSE 123 mg/dL (74-106); PROTEIN - SERUM 5.9 g/dL (6.4-8.2); SODIUM 133 mmol/L (136-145); UREA NITROGEN 20 mg/dL (7-18); eGFR NON AFRICAN AMERICAN > 90 mL/min (90-120)
[2016-05-20 08:41] VITALS: BP 168/72
--- NOTE | 2016-05-20 11:54 | NUR ---
LYING IN BED ASLEEP WITH EYES CLOSED.FAMILY AT BEDSIDE.CALL LIGHT IN REACH
[2016-05-20 12:30] VITALS: BP 125/59
--- NOTE | 2016-05-20 13:23 | NUR ---
PT HAS YET TO URINATE THIS SHIFT. PT BLADDER SCANNED AND SAW 645CC'S. WILL IN AND OUT CATH.
--- NOTE | 2016-05-20 14:00 | NUR ---
IN AND OUT CATH PERFORMED USING STERILE TECHNIQUE. IMMEDIATE RETURN OF DAYA URINE. STOPPED DRAINAGE AFTER 600CC'S TO HELP PREVENT BLADDER SPASMS. FINAL AMOUNT 1000CC'S.
[2016-05-20 16:05] VITALS: BP 103/64
[2016-05-20 20:00] VITALS: BP 145/70
--- NOTE | 2016-05-20 23:40 | NUR ---
ASSESSED AT THE BEGINNING OF THE SHIFT. SHE IS ALERT AND ORIENTED, BUT HAS SOME CONFUSION NOTED AT TIMES. HER TELEMETRY IS IN PLACE AND SHE REQUESTED PAIN MEDS AT THE BEGINNING OF SHIFT WHICH SHE RECEIVED WITH HER NIGHT MEDS. SHE STATED IT DID NOT REALLY HELP HER PAIN. SHE HAS BEEN MOANING AND COMPLAINING MOST OF THE EARLY EVENING. THE BED IS LOW, RAILS UP X'S 2 WITH THE CALL LIGHT AT HAND.
--- NOTE | 2016-05-21 01:09 | NUR ---
PT WANTED TO SIST ON THE SIDE OF THE BED AND SAT THERE FOR LESS THAN A MINUTE BEFORE HER ALARM WENT OFF AND SHE WAS UP STANDING. SHE THEN WAS INCONT OF STOOL AND HAD TO BE CLEANED UP AND REPLACE BACK IN BED. SHE HAD TAKEN HER GOWN OFF. AT THIS TIME SHE WAS COMPLAINING OF ABD PAIN STILL AND BECAUSE SHE STILL HAD NOT VOIDEE ON HER OWN A BYNUM WAS PALCE WITH 500 CC OUT. SHE THEN RECEIVED BUPRENEX AGAIN AND HOPEFULLY SHE WILL REST.
[2016-05-21 04:00] VITALS: BP 148/66
[2016-05-21 08:19] VITALS: BP 144/67
--- NOTE | 2016-05-21 09:57 | NUR ---
AWAKE AND ALERT. ORIENTED X3. C/O ABDOMINAL PAIN LEVEL 10. HAS HAD PRN MEDS FOR PAIN ALREADY, WILL MONITOR. LUNGS ARE CLEAR BILATERALLY, NO COUGH NOTED. ABDOMEN IS FIRM AND DISTENDED WITH HYPOACTIVE BOWEL SOUNDS. WILL MONITOR. REPORTS NO BM SINCE YESTERDAY AND IS NOT EATING ANYTHING.
--- NOTE | 2016-05-21 11:15 | NUR ---
ALERTED BY PHYSICAL THERAPIST, TITUS, THAT PT STATED SHE WAS IN TOO MUCH PAIN TO WALK TODAY.
[2016-05-21 11:53] VITALS: BP 116/65
--- NOTE | 2016-05-21 12:12 | NUR ---
X-RAY IN ROOM OBTAINING KUB AT THIS TIME.
[2016-05-21 14:00] LABS: BASOPHILS 0.6 % (0.0-2.0); EOSINOPHILS 1.9 % (0-7); HEMATOCRIT 30.1 % (36.0-48.0); HEMOGLOBIN 9.8 g/dL (12-16); IMMATURE GRANULOCYTES 0.3 % (0-5); LYMPHOCYTES 11.6 % (15-50); MCH 29.3 pg (26.0-34.0); MCHC 32.6 g/dL (31.0-37.0); MEAN PLATELET VOLUME 10.6 fL (7.4-10.4); MONOCYTES 15.5 % (2-11); NEUTROPHILS 70.1 % (40-80); RBC 3.35 10x6/uL (4.00-5.40); RDW 14.7 % (11.5-14.5); WBC 6.4 10x3/uL (4.8-10.8)
[2016-05-21 14:11] LABS: MCV 89.9 fL (80.0-100.0); PLATELET COUNT 160 10x3/uL (130-400)
[2016-05-21 14:15] LABS: CALC OSMOLALITY 270 mosm/kg (275-300); CALCIUM 8.3 mg/dL (8.5-10.1); CARBON DIOXIDE 25.3 mmol/L (21.0-32.0); CHLORIDE - SERUM 101 mmol/L (98-107); CREATININE - SERUM 0.5 mg/dL (0.6-1.3); GLUCOSE 138 mg/dL (74-106); SODIUM 134 mmol/L (136-145); UREA NITROGEN 16 mg/dL (7-18); eGFR NON AFRICAN AMERICAN > 90 mL/min (90-120)
[2016-05-21 14:20] LABS: POTASSIUM - SERUM 4.8 mmol/L (3.5-5.1)
--- NOTE | 2016-05-21 14:55 | NUR ---
18 ICELANDIC NGT DROPPED. IMMEDIATE RETURN OF BROWN FLUID. CHECKED WITH AIR INSERTION AND STAT KUB ORDERED. PT TOLERATED WELL. HEAD OF BED ELEVATED TO 45 DEGREES. 500CC BOLUS FINISHED.
[2016-05-21 15:36] VITALS: BP 138/67
[2016-05-21 20:00] VITALS: BP 123/56
--- NOTE | 2016-05-21 20:00 | NUR ---
ASSESSMENT PER FLOWSHEET. NGT PATENT LT NARE CONNECTED TO LIWS. DARK GREEN DRAINAGE RETURNED. IV PATENT LEFT HAND OF NS W/20MEQ KCL INFUSING AT 75CC'S/HR IV SALINE LOCKED TO LEFT AC. MISA TO COLBY ARAUJO. TELM. SHOWS ST WITH HR 101.
--- NOTE | 2016-05-21 21:00 | NUR ---
MEDS GIVEN PER MAR.
--- NOTE | 2016-05-21 22:10 | NUR ---
C/O PAIN ABDOMEN. RATES PAIN LEVEL #7. BUPRENEX 0.3MG IVP GIVEN FOR PAIN RELIEF.
[2016-05-22] VITALS: BP 117/60
--- NOTE | 2016-05-22 | NUR ---
EYES CLOSED RESPIRATIONS WITH EASE AND UNLABORED. SR UP X2 CALL LIGHT WITHIN REACH.
--- NOTE | 2016-05-22 01:10 | NUR ---
RESTING QUIETLY NO CHANGES IN ASSESSMENT.
[2016-05-22 05:38] LABS: BASOPHILS 0.2 % (0.0-2.0); EOSINOPHILS 0.4 % (0-7); HEMATOCRIT 26.1 % (36.0-48.0); HEMOGLOBIN 8.4 g/dL (12-16); IMMATURE GRANULOCYTES 0.4 % (0-5); LYMPHOCYTES 16.9 % (15-50); MCH 28.5 pg (26.0-34.0); MCHC 32.2 g/dL (31.0-37.0); MCV 88.5 fL (80.0-100.0); MEAN PLATELET VOLUME 10.8 fL (7.4-10.4); MONOCYTES 8.1 % (2-11); RBC 2.95 10x6/uL (4.00-5.40); RDW 14.9 % (11.5-14.5); WBC 5.2 10x3/uL (4.8-10.8)
[2016-05-22 05:47] LABS: PLATELET COUNT 254 10x3/uL (130-400)
[2016-05-22 05:49] LABS: CALC OSMOLALITY 277 mosm/kg (275-300); CALCIUM 8.3 mg/dL (8.5-10.1); CARBON DIOXIDE 22.6 mmol/L (21.0-32.0); CHLORIDE - SERUM 105 mmol/L (98-107); CREATININE - SERUM 0.6 mg/dL (0.6-1.3); GLUCOSE 79 mg/dL (74-106); POTASSIUM - SERUM 4.4 mmol/L (3.5-5.1); SODIUM 139 mmol/L (136-145); UREA NITROGEN 16 mg/dL (7-18); eGFR NON AFRICAN AMERICAN > 90 mL/min (90-120)
--- NOTE | 2016-05-22 07:41 | NUR ---
PT RESTLESS AND ALERT IN BED RESP EVEN AND NONLABORED IV TO LEFT FOREARM PATENT AND INTACT. PT DENIES NEEDS AT THIS TIME BED AT LOWEST SETTING CALL LIGHT WITHIN REACH SRX2 WILL CONTINUE TO MONITOR
[2016-05-22 08:06] VITALS: BP 173/71
[2016-05-22 11:21] VITALS: BP 123/66
--- NOTE | 2016-05-22 15:03 | NUR ---
NUTRITION MONITORING & EVAL CHART REVIEWED, PT VISIT. NOW NPO WITH NG TO SUCTION. MAY REQUIRE NUTRITION SUPPORT IF CONTINUED NPO OR POOR PO INTAKE. RD FOLLOWING
[2016-05-22 15:20] VITALS: BP 129/73
--- NOTE | 2016-05-22 15:58 | OP ---
PATIENT NAME: FOSTER DUQUE MEDICAL RECORD: [id number] :42 LOCATION:D.[facility] ADMISSION DATE:05/14/16 SURGEON: LENIN TATUM DO DATE OF OPERATION: 05/18/2016 PROCEDURE: EGD. SCOPE: Olympus video gastroscope. MEDICATIONS: Propofol 70 mg IV per anesthesia. INDICATIONS: Heme-positive stools and anemia. FINDINGS: Informed consent was given. The patient was made comfortable with the above medication. After reaching an adequate level of sedation by slow IV push, the patient was placed on her left side. The gastroscope was then advanced under direct visualization through the mouth down to the level of the second portion of the duodenum. The upper, middle and distal esophagus appeared normal. At the GE junction and the cardia, there was evidence of a moderately sized sliding hiatal hernia. There were associated Chapin ulcerations within this hernia, which did not show evidence of bleeding or recent bleeding. The scope was advanced down to the stomach where there was some mild granularity and erythema as well as friability consistent with gastritis. The scope was advanced down beyond the pylorus into the duodenum where the bulb and second portion of the duodenum revealed multiple circumferential superficial ulcerations associated with some hemorrhagic and friable mucosa. Down in the second portion, the ulcerations continued along the duodenal folds in a superficial linear pattern. There was no evidence of current bleeding and no stigmata of ongoing bleeding. The scope was withdrawn from the patient and no interventions were undertaken. The patient tolerated the procedure well and there were no complications. ESTIMATED BLOOD LOSS: Zero. IMPRESSION: 1. Moderate sized hiatal hernia involving the cardia. 2. Chapin ulcerations associated with a hiatal hernia. 3. Mild gastritis of the stomach. 4. Severe duodenitis with associated superficial ulcerations involving the bulb and second portion of the duodenum. PLAN AND RECOMMENDATIONS: 1. Return to floor and continue supportive care. 2. Continue proton pump inhibitor therapy in the form of Protonix 40 mg twice daily for a total of 8 weeks. 3. Add Carafate suspension 1 gram per 10 mL p.o. q.a.c. and h.s. times 14 days. 4. We will check a gastrin level with a.m. laboratory. 5. Recommend a repeat endoscopy in 2-3 months to assure healing of ulcerations. 6. Recommend taking a stool H. pylori antigen. TRANSINT:[id number] Voice Confirmation ID: [id number] DOCUMENT ID: [id number] OPERATIVE REPORT [id number] FOSTER DUQUE,LENIN Zhao DO at 1558 CC: [id number] DICTATION DATE: 05/18/16 1720 LITERATURE TEACHER: 05/18/16 2355 ADM IN [facility] [id number] [place] [address]
[2016-05-22 19:00] VITALS: BP 151/67
--- NOTE | 2016-05-23 04:02 | NUR ---
LYING IN BED AWAKE, LAB IN ROOM, SCD'S IN PLACE, NO DISTRESS NOTED, CL IN REACH
[2016-05-23 08:22] VITALS: BP 155/75
[2016-05-23 11:14] VITALS: BP 132/64
[2016-05-23 13:14] LABS: BASOPHILS 0.3 % (0.0-2.0); EOSINOPHILS 0.1 % (0-7); HEMATOCRIT 27.8 % (36.0-48.0); HEMOGLOBIN 8.8 g/dL (12-16); IMMATURE GRANULOCYTES 2.2 % (0-5); MCH 28.3 pg (26.0-34.0); MCHC 31.7 g/dL (31.0-37.0); MCV 89.4 fL (80.0-100.0); MEAN PLATELET VOLUME 10.2 fL (7.4-10.4); MONOCYTES 11.8 % (2-11); NEUTROPHILS 76.6 % (40-80); RBC 3.11 10x6/uL (4.00-5.40); RDW 14.9 % (11.5-14.5)
[2016-05-23 13:23] LABS: PLATELET COUNT 413 10x3/uL (130-400); WBC 6.9 10x3/uL (4.8-10.8)
[2016-05-23 13:30] LABS: ALBUMIN 1.4 g/dL (3.4-5.0); ALKALINE PHOSPHATASE 117 U/L (46-116); ALT (SGPT) 36 U/L (10-68); CALC OSMOLALITY 290 mosm/kg (275-300); CALCIUM 8.8 mg/dL (8.5-10.1); CARBON DIOXIDE 23.1 mmol/L (21.0-32.0); CHLORIDE - SERUM 107 mmol/L (98-107); CREATININE - SERUM 0.6 mg/dL (0.6-1.3); GLUCOSE 101 mg/dL (74-106); PROTEIN - SERUM 5.8 g/dL (6.4-8.2); SODIUM 145 mmol/L (136-145); UREA NITROGEN 17 mg/dL (7-18); eGFR NON AFRICAN AMERICAN > 90 mL/min (90-120)
[2016-05-23 13:31] LABS: POTASSIUM - SERUM 3.4 mmol/L (3.5-5.1)
[2016-05-23 14:23] LABS: MITOCHONDRIAL ANTIBODY 3.1 Units (0.0-20.0)
[2016-05-23 15:11] VITALS: BP 135/72
[2016-05-23 15:17] LABS: MAGNESIUM - SERUM 1.3 mg/dL (1.8-2.4); PHOSPHOROUS 4.1 mg/dL (2.5-4.9)
--- NOTE | 2016-05-23 15:46 | NUR ---
NUTRITION MONITORING & EVAL CHART REVIEWED. SPOKE WITH LAB, PHARMACY. TPN AND LIPIDS ORDERED, ADDED MAG AND PHOS TO AM LAB. ADDED NURSING MESSAGE TO DECREASE IV FLUIDS WHEN TPN STARTS. WILL SPEAK WITH NURSING RE: LOW MAG/REPLACEMENT. RD FOLLOWING
[2016-05-23 19:00] VITALS: BP 146/69
[2016-05-24] VITALS (13 sets, daily range): BP systolic 129–175; BP diastolic 61–99
[2016-05-24 07:18] LABS: BASOPHILS 0.3 % (0.0-2.0); EOSINOPHILS 0.4 % (0-7); HEMATOCRIT 26.3 % (36.0-48.0); HEMOGLOBIN 8.3 g/dL (12-16); IMMATURE GRANULOCYTES 1.9 % (0-5); LYMPHOCYTES 11.2 % (15-50); MCH 28.1 pg (26.0-34.0); MCHC 31.6 g/dL (31.0-37.0); MCV 89.2 fL (80.0-100.0); NEUTROPHILS 73.2 % (40-80); PLATELET COUNT 405 10x3/uL (130-400); RBC 2.95 10x6/uL (4.00-5.40); RDW 14.9 % (11.5-14.5); WBC 6.7 10x3/uL (4.8-10.8)
--- NOTE | 2016-05-24 07:20 | NUR ---
PATIENT RECEIVED IN RIGHT LATERAL POSITION. RESPIRATIONS EVEN AND UNLABORED. SIDE RAILS UP X2. BED IN LOW POSITION. CALL LIGHT IN REACH. BED ALARM ON.
[2016-05-24 07:44] LABS: ALBUMIN 1.3 g/dL (3.4-5.0); ALKALINE PHOSPHATASE 105 U/L (46-116); ALT (SGPT) 35 U/L (10-68); BILIRUBIN - TOTAL 0.42 mg/dL (0.2-1.3); CALCIUM 8.2 mg/dL (8.5-10.1); CARBON DIOXIDE 23.5 mmol/L (21.0-32.0); CHLORIDE - SERUM 111 mmol/L (98-107); CREATININE - SERUM 0.7 mg/dL (0.6-1.3); PROTEIN - SERUM 5.4 g/dL (6.4-8.2); SODIUM 146 mmol/L (136-145); UREA NITROGEN 16 mg/dL (7-18); eGFR NON AFRICAN AMERICAN 87 mL/min (90-120)
[2016-05-24 07:58] LABS: CALC OSMOLALITY 298 mosm/kg (275-300); GLUCOSE 227 mg/dL (74-106); MAGNESIUM - SERUM 1.7 mg/dL (1.8-2.4); PHOSPHOROUS 2.7 mg/dL (2.5-4.9)
--- NOTE | 2016-05-24 08:23 | NUR ---
PATIENT IN RIGHT LATERAL POSITION RESTING QUIETLY. RESPIRATIONS EVEN AND UNLABORED. ORAL MEDICATION HELD DUE TO NPO STATUS FOR COLONOSCOPY. IV MEDICATION ADMINISTERED PER ORDER. ENEMAS INITIATED PER ORDER. TOLERATING WELL. SIDE RAILS UP X2. BED IN LOW POSITION. CALL LIGHT IN REACH. AT BEDSIDE.
--- NOTE | 2016-05-24 08:35 | NUR ---
DRESSING TO RIGHT PICC CHANGED PER FACILITY PROTOCOL. NO REDNESS OR INFLAMMATION NOTED AT SITE. CLEANSED WITH PROVIDED CLEANSER IN KIT. NEW BIOPATCH AND TEGADERM PLACED OVER SITE. WELL TOLERATED. SWAB CAPS IN USE
--- NOTE | 2016-05-24 11:00 | NUR ---
PATIENT OFF FLOOR TO GI LAB VIA BED
--- NOTE | 2016-05-24 12:45 | NUR ---
PATIENT BACK TO ROOM FROM GI LAB VIA BED. PRESENT.
--- NOTE | 2016-05-24 13:46 | NUR ---
NUTRITION MONITORING & EVAL CHART REVIEWED. LABS NOTED. RENEWED AM LABS X 3 DAYS. WILL CHECK AM LABS AND ADJUST TPN NEEDED. RD FOLLOWING
--- NOTE | 2016-05-24 15:55 | NUR ---
PATIENT IN LOW HORTA POSITION RESTING QUIETLY WITH EYES CLOSED. RESPIRATIONS EVEN AND UNLABORED. FAMILY AT BEDSIDE. SIDE RAILS UP X3. BED IN LOW POSITION. CALL LIGHT IN REACH. BED ALARM ON.
--- NOTE | 2016-05-24 17:45 | NUR ---
PATIENT REPOSITIONED IN BED. WELL TOLERATED. SIDE RAILS UP X3. BED IN LOW POSITION. CALL LIGHT IN REACH. BED ALARM ON.
--- NOTE | 2016-05-24 18:45 | NUR ---
PATIENT OFF FLOOR TO CT VIA BED
--- NOTE | 2016-05-24 18:50 | NUR ---
PATIENT BACK TO ROOM FROM CT. RADIOLOGY STAFF REPORTS PICC LINE IS OUT. UPON INSPECTION CLEAR PART OF PICC DRESSING NOTED TO BE REMOVED AND PICC OUT WITH TIP INTACT. PICC 36CM TO TIP
--- NOTE | 2016-05-24 20:53 | NUR ---
AWAKE WIHT CONFUSION NOTED. VERY AGITATED.PULLING AT NG AND TELEMENTRY. DR WYNN NOTIFIED OF PICC OUT AND UNABLE TO RESTART PERPHEAL IV AT THIS TIME. NEW ORDER FOR ATIVAN 0.5 MG PO WITH SIP OF H20.
--- NOTE | 2016-05-24 23:19 | NUR ---
2199 PATIENT FOUND URESPONSIVE WI SPO2 @ 57% RAPID RESPONSE CALLED. DR KRISHNA NOTIFIED WI ORDERS RECIEVED. DR RAWLS AND NOTIFIED. 2244 SPO2 @ 73%. PATIENT TRANSFERRED TO ICU
--- NOTE | 2016-05-24 23:33 | NUR ---
PT RECIEVED. BP 140/73. HR 119. BILAT LUNGS CRACKLES HEARD. PT PLACED ON BIPAP 100% O2 SAT 92% RR 26 LABORED. DISORIENTED X3. L AC 20 G PIV STARTED UPON 1 ATTEMPT. VSS. WILL CONTINUETOMONITOR.
--- NOTE | 2016-05-24 23:35 | NUR ---
INITIATED PRBC UNIT 1 OF 2 PER ORDER, PER HOSPITAL PROTOCOL.
--- NOTE | 2016-05-24 23:55 | NUR ---
AT BS, ALL QUESTIONS ANSWERED, POC DISCUSSED. PT REQUESTS NO OTHER PERSON OBTAIN PT INFO EXCEPT HIM - PASSWORD SET UP. PT ON BIPAP, NO SIGN OF DISTRESS, PT OCC REACH FOR LINES, (PT PULLED HER PICC LINE OUT EARLIER TODAY). WILL GIVE PRN ATIVAN PER ORDERS. PRBC INFUSING WITHOUT S/S ADVERSE RXN.
[2016-05-25] VITALS (27 sets, daily range): BP systolic 119–175; BP diastolic 64–100
[2016-05-25 00:01] LABS: CKMB 1.9 U/L (0.0-3.6); CREATINE KINASE 43 UL (21-215); TROPONIN-I 0.036 ng/mL (0.000-0.060)
--- NOTE | 2016-05-25 02:15 | NUR ---
UNIT 1 PRBCS COMPLETE, LINE FLUSHED, NO SIGN OF ADVERSE RXN.
--- NOTE | 2016-05-25 02:25 | NUR ---
BEGIN UNIT 2 PRBC PER MD ORDER, PER HOSPITAL POLICY.
--- NOTE | 2016-05-25 03:09 | NUR ---
REASSESSMENT COMPLETE PER FLOW SHEET. VSS. RUL RML MARIKA CLEAR BILAT LOWER LOBES DEMINISHED. PT SLEEPING COMFORTABLY. WILL CONTINUE TO MONITOR.
--- NOTE | 2016-05-25 03:27 | NUR ---
PCXR DONE. BREAK FROM BIPAP FOR ORAL CARE, PT TOLERATED 7L NC.
--- NOTE | 2016-05-25 05:12 | NUR ---
PRBCS COMPLETE, NO SIGN OF ADVERSE RXN. LINE FLUSHED. PT REMAINS ON 6L NC, POX 95%, NO SIGN OF DISTRESS.
[2016-05-25 05:30] LABS: BASOPHILS 0.7 % (0.0-2.0); EOSINOPHILS 0 % (0-7); IMMATURE GRANULOCYTES 8.9 % (0-5); LYMPHOCYTES 8.8 % (15-50); MCH 29.3 pg (26.0-34.0); MEAN PLATELET VOLUME 10.2 fL (7.4-10.4); MONOCYTES 10.6 % (2-11); RBC 4.09 10x6/uL (4.00-5.40); RDW 14.2 % (11.5-14.5); WBC 10.2 10x3/uL (4.8-10.8)
[2016-05-25 05:31] LABS: HEMATOCRIT 36.4 % (36.0-48.0); PLATELET COUNT 318 10x3/uL (130-400)
[2016-05-25 06:13] LABS: CALC OSMOLALITY 306 mosm/kg (275-300); CALCIUM 8.3 mg/dL (8.5-10.1); CARBON DIOXIDE 27.4 mmol/L (21.0-32.0); CHLORIDE - SERUM 115 mmol/L (98-107); CREATININE - SERUM 0.6 mg/dL (0.6-1.3); GLUCOSE 232 mg/dL (74-106); MAGNESIUM - SERUM 1.5 mg/dL (1.8-2.4); POTASSIUM - SERUM 3.2 mmol/L (3.5-5.1); SODIUM 151 mmol/L (136-145); UREA NITROGEN 13 mg/dL (7-18); eGFR NON AFRICAN AMERICAN > 90 mL/min (90-120)
[2016-05-25 06:19] LABS: PHOSPHOROUS 3.4 mg/dL (2.5-4.9)
--- NOTE | 2016-05-25 07:00 | NUR ---
PT REPORT REC'D, PT CARE ASSUMED. PT RESTING WITH EYES CLOSED. PT GRIMACES FACE WITH MOVEMENT. VSS, 6LNC. LEFT AC PIV S/L, DRESSING CDI, LEFT WRIST PIV WITH FLUIDS INFUSING, SEE FLOW SHEET, DRESSING CDI. ABDOMINAL DISTENDED AND SOFT. BYNUM CATHETER FREE OF KINKS TO GRAVITY WITH CLEAR, YELLOW URINE RETURN. BILAT SCD'S. GENERALIZED BRUISING. SHIFT ASSESSMENT COMPLETED, SEE FLOW SHEET. ROOM FREE OF CLUTTER, CALL LIGHT IN REACH. BED LOCKED IN LOWEST POSITION, WILL CONTINUE TO MONITOR PT
--- NOTE | 2016-05-25 08:46 | NUR ---
PT TRANSFERRED TO CT
--- NOTE | 2016-05-25 09:00 | NUR ---
PT RETURNED FROM CT, VSS. AT THE BEDSIDE, ALL QUESTIONS ANSWERED, WILL CONTINUE TO MONITOR PT.
--- NOTE | 2016-05-25 09:38 | NUR ---
NUTRITION MONITORING & EVAL CHART REVIEWED. EVENTS NOTED. CONTACTED PHARMACY RE: TPN ON HOLD. IF CONSIDERED MEDICALLY FEASIBLE, RECOMMEND TRIAL NG TRICKLE TUBE FEEDS WITH VITAL 1.0 (DESIGNED FOR MALABSORPTION, IMPAIRED GI FUNCTION. RD FOLLOWING
--- NOTE | 2016-05-25 11:00 | NUR ---
PT RESTING WITH EYES CLOSED, REPOSITIONED PT, PROPPED WITH PILLOWS. PT GRIMACES FACE WITH MOVEMENT, STATES "OUCH". REASSESSMENT COMPLETED, SEE FLOW SHEET. ROOM FREE OF CLUTTER, BED LOCKED IN LOWEST POSITION, CALL LIGHT IN REACH, WILL CONTINUE TO MONITOR PT.
--- NOTE | 2016-05-25 11:08 | OP ---
PATIENT NAME: FOSTER DUQUE MEDICAL RECORD: [id number] :42 LOCATION:D.ICU [id number] ADMISSION DATE:05/14/16 SURGEON: LENIN TATUM DO DATE OF OPERATION: 05/24/2016 PROCEDURE: Flexible sigmoidoscopy with biopsies. SCOPE: Olympus video pediatric colonoscope. MEDICATIONS: Propofol 100 mg IV per anesthesia. INDICATIONS: Continued colitis with failure to improve on antibiotics. FINDINGS: Informed consent was given. The patient was made comfortable with the above medication. After an adequate level of sedation was reached, the patient was placed on her left side. A digital rectal examination was performed and was normal. The endoscope was then advanced through the rectum under direct visualization to the distal sigmoid colon. There were multiple separate ulcerations located throughout the rectosigmoid colon. These measured approximately 5 mm to approximately 2 cm. The majority of them were superficial, but there were a few deeper ulcerations present. There was also some loss of vascularity and congestion within this segment of bowel. Appearances were consistent with infectious colitis versus Crohn's colitis. There was no evidence of Clostridium difficile or diverticulitis. The patient has been on antibiotics and has failed to improve significantly making infectious colitis less likely. That being said, she has also had a CT scan which showed colitis only involving the sigmoid colon, which is highly unlike Crohn disease. IMPRESSION: 1. Colitis involving the rectosigmoid colon. The endoscope was not advanced beyond this segment, so a cut-off point could not be determined. This is due to an inadequate prep, colitis, which is active and a tortuous colon. PLAN AND RECOMMENDATIONS: 1. Await biopsy specimens. 2. If biopsies are consistent with inflammatory bowel disease, would recommend initiation of steroids at 40 mg?____ p.o. daily, and/or IV steroids. I would also recommend initiation of long-term therapy at that time. If biopsies are not consistent with inflammatory bowel disease, I would recommend continuation of antibiotic therapy. 3. We will await biopsies for further recommendations. TRANSINT:[id number] Voice Confirmation ID: [id number] DOCUMENT ID: [id number] LENIN TATUM DO at 1104 CC: [id number] DICTATION DATE: 05/24/16 1227 FIELD APPRAISER: 05/24/[address] [facility] [address] [id number]
--- NOTE | 2016-05-25 13:20 | NUR ---
CALLED DR. HOOD'S OFFICE, SPOKE TO MOISÉS TO INFORM OF CONSULT.
--- NOTE | 2016-05-25 13:23 | NUR ---
CALLED DR. RODRIGUES'S OFFICE TO INFORM OF CONSULT, SPOKE WITH ELIZABETH.
--- NOTE | 2016-05-25 13:52 | NUR ---
HALEIGH CARDOSO RN AT THE BEDSIDE PLACING PICC LINE.
--- NOTE | 2016-05-25 14:27 | NUR ---
NUTRITION MONITORING & EVAL LABS REVIEWED. NEW TPN ORDERS WRITTEN. ENTERED NURSING MESSAGE TO DECREASE IV FLUIDS WHEN TPN STARTS. RD FOLLOWING
--- NOTE | 2016-05-25 15:00 | NUR ---
PT RESTING WITH EYES CLOSED, PT GRIMACES FACE WITH MOVEMENT. VSS, PT AT THE BEDSIDE, ALL QUESTIONS ANSWERED. REASSESSMENT COMPLETED, SEE FLOW SHEET. ROOM FREE OF CLUTTER, BED LOCKED IN LOWEST POSITION, CALL LIGHT IN REACH. WILL CONTINUE TO MONITOR PT.
--- NOTE | 2016-05-25 15:53 | NUR ---
DR. RODRIGUES CALLED, "WILL BE THERE TOMORROW."
--- NOTE | 2016-05-25 16:15 | NUR ---
PT TRANSFERRED TO CT
--- NOTE | 2016-05-25 16:25 | NUR ---
PT RETURNED FROM CT, VSS, WILL CONTINUE TO MONITOR PT.
--- NOTE | 2016-05-25 18:28 | NUR ---
PT RESTING WITH EYES CLOSED, NO C/O PAIN, NO SIGNS OF DISTRESS, WILL CONTINUE TO MONITOR PT.
--- NOTE | 2016-05-25 19:15 | NUR ---
REC'D TO CARE, TOOL DIE MAKER PER FLOWSHEET. PT WITH EYES CLOSED, OCCASIONAL MOVING AROUND IN BED, WILL OPEN EYES, BUT NO VERBAL RESPONSE. WILL GRASP HANDS TO COMMAND. MOVES LEGS FREQUENTLY. CM - ST. O2 6L - POX 95% IVFS INFUSING TO R PICC, DSG C/D/I - SEE FLOWSHEET. BYNUM CATH PATENT WITH CLEAR YELLOW URINE. NO SIGN OF DISTRESS. C/L IN REACH. ALARMS ON.
--- NOTE | 2016-05-25 21:00 | NUR ---
NO VISITORS AT THIS TIME. PT RESTING QUIETLY, NO SIGN OF DISTRESS.
--- NOTE | 2016-05-25 23:14 | NUR ---
REASSESSMENT PER FLOWSHEET, NO ACUTE CHANGES. PT REPOSITIONED UP IN BED TO R SIDE, ORAL CARE ATTEMPTED - PT VERY RESISITANT. VSS. NO SIGN OF DISTRESS.
[2016-05-26] VITALS (24 sets, daily range): BP systolic 113–182; BP diastolic 56–109
--- NOTE | 2016-05-26 01:10 | NUR ---
PT REPOSITIONED UP IN BED, LINDA-CARE DONE. RESISTANT TO ORAL CARE AND BECAME AGITATED - ADMIN ATIVAN IV PER PRN ORDER.
--- NOTE | 2016-05-26 03:15 | NUR ---
REASSESSMENT COMPLETE, NO CHANGES NOTED, PT RESTING AT THIS TIME, REPOSITIONED FOR COMFORT,
--- NOTE | 2016-05-26 04:12 | NUR ---
PT AGITATED WHEN ATTEMPTING TO REPOSITION, PRN ATIVAN GIVEN
[2016-05-26 04:14] LABS: BASOPHILS 0.7 % (0.0-2.0); EOSINOPHILS 0 % (0-7); HEMATOCRIT 39.8 % (36.0-48.0); HEMOGLOBIN 13.2 g/dL (12-16); IMMATURE GRANULOCYTES 8.8 % (0-5); LYMPHOCYTES 9.8 % (15-50); MCH 29.3 pg (26.0-34.0); MCHC 33.2 g/dL (31.0-37.0); MCV 88.4 fL (80.0-100.0); MEAN PLATELET VOLUME 10.5 fL (7.4-10.4); MONOCYTES 1.7 % (2-11); PLATELET COUNT 297 10x3/uL (130-400); RDW 14.5 % (11.5-14.5)
[2016-05-26 04:41] LABS: ALBUMIN 1.6 g/dL (3.4-5.0); ALKALINE PHOSPHATASE 181 U/L (46-116); CARBON DIOXIDE 29.8 mmol/L (21.0-32.0); CHLORIDE - SERUM 110 mmol/L (98-107); CREATININE - SERUM 0.7 mg/dL (0.6-1.3); MAGNESIUM - SERUM 1.7 mg/dL (1.8-2.4); PROTEIN - SERUM 6.2 g/dL (6.4-8.2); SODIUM 149 mmol/L (136-145); UREA NITROGEN 13 mg/dL (7-18); eGFR NON AFRICAN AMERICAN 87 mL/min (90-120)
[2016-05-26 04:56] LABS: ALT (SGPT) 53 U/L (10-68); CALC OSMOLALITY 305 mosm/kg (275-300); GLUCOSE 281 mg/dL (74-106); PHOSPHOROUS 2.5 mg/dL (2.5-4.9); POTASSIUM - SERUM 2.6 mmol/L (3.5-5.1)
--- NOTE | 2016-05-26 05:29 | NUR ---
PT SLEEPING COMFORTABLY. VSS NO NEW CHANGES. WILL CONTINUE TO MONITOR.
--- NOTE | 2016-05-26 09:41 | NUR ---
NUTRITION MONITORING & EVAL CHART/LABS REVIEWED. ADJUSTED AND RENEWED TPN. AM LABS ADDED THRU WEEKEND. WILL CONTINUE TO MONITOR PT PROGRESS AND LABS. ADJUST TPN NEEDED. RD FOLLOWING
[2016-05-26 15:56] LABS: CALC OSMOLALITY 312 mosm/kg (275-300); CALCIUM 8.4 mg/dL (8.5-10.1); CHLORIDE - SERUM 113 mmol/L (98-107); CREATININE - SERUM 0.6 mg/dL (0.6-1.3); POTASSIUM - SERUM 3.8 mmol/L (3.5-5.1); SODIUM 150 mmol/L (136-145); UREA NITROGEN 14 mg/dL (7-18); eGFR NON AFRICAN AMERICAN > 90 mL/min (90-120)
[2016-05-26 16:01] LABS: GLUCOSE 354 mg/dL (74-106)
--- NOTE | 2016-05-26 19:30 | NUR ---
Assessment complete. See flowsheet. pt eyes open upon entrance into room for report. Pt down in bed and pulled up. Pt positioned to left side with arms and heels bridged and HOB elevated to 30 degrees. Pt moaning but does not attempt conversation. Pt moving right arm and leg against gravity and removing nasal cannula and pulling at NGT. Right wrist restraint applied. Left arm with small movement 2/5 to stimulation but not against gravity. Left leg withdraws to stimulation against gravity 3/5 limb strength. Nasal cannula resecured and FiO2 weaned to 5L from 6L Humidified for SPO2 97%. Lung sounds clear to auscultation. HR ST 104BPM with S1S2 auscultated. All peripheral pulses palpable. NO edema noted. Left arm A/C PIV site and Left forearm PIV site CDI and saline locked to both sites with no s/s infection. Right upper arm PICC line site CDI with TPN infusing @ 40cc/hr and D5W infusing @ 35cc/hr. Abdomen soft with BS hypoactive to all quadrants. Left nare NGT to LIWS retrieving dark green gastric content. Spangler catheter secure retrieving clear/yellow urine. SCDs secure to lower extremities. NO s/s pain. Pt continues to move right leg with nonpurposeful movement. CPOC.
--- NOTE | 2016-05-26 20:45 | NUR ---
BIPAP mask on for respirations 38/min and shallow. Settings 16/8 FiO2 40 Rate 10.
--- NOTE | 2016-05-26 21:30 | NUR ---
Pt repositioned to right side after pulling up in bed. HOB @ 30 degrees. BIPAP mask remains secure. No neuro changes to note. PM medications administered and NGT clamped. See APR. Blood glucose 275 and covered with regular insulin 6 units subq. See APR. CPOC.
--- NOTE | 2016-05-26 23:30 | NUR ---
Reassessment complete. See flowsheet. Pt resting with BIPAP mask secure; no setting changes to note. Pt awakens during lung auscultation and moaning with no neuro changes to note from previous assessment. Lung sounds clear to all isabel with diminished lower lobes. Respirations 20/min. HR ST 118BPM with S1S2 auscultated. All peripheral pulses remain +2 with capillary refill <3 seconds. PICC line site remains CDI with NO IVF changes to note. BS remain hypoactive to all quadrants. Spangler remains secure. Pt repositioned to back with HOB @ 30 degrees. Arms and heels bridged. SCDs secure. No other changes to note. CPOC.
[2016-05-27] VITALS (24 sets, daily range): BP systolic 135–191; BP diastolic 67–106
--- NOTE | 2016-05-27 01:30 | NUR ---
Pt repositioned to left side. HOB @ 30 degrees and resting. NO s/s pain or distress. CPOC.
--- NOTE | 2016-05-27 02:15 | NUR ---
Pt agitated and kicking leg and moaning. Ativan 0.5mg IVP administered. See APR.
--- NOTE | 2016-05-27 03:30 | NUR ---
Reassessment complete. See flowsheet. Pt resting with BIPAP mask secure; no setting changes to note. Pt awakens during lung auscultation and moaning wit no neuro changes to note from previous assessment. Lung sounds clear to all isabel with diminished lower lobes. Respirations 20/min. HR ST 110 BPM with S1S2 auscultated. All peripheral pulses remain +2 with capillary refill <3 seconds. PICC line site remains CDI with NO IVF changes to note. BS remain hypoactive to all quadrants. Spangler remains secure. Pt repositioned to back with HOB @ 30 degrees for AM CXR and KUB. Arms and heels rebridged afterwards. NO s/s agitation at this time. CPOC.
[2016-05-27 04:24] LABS: BASOPHILS 0.3 % (0.0-2.0); EOSINOPHILS 0 % (0-7); HEMATOCRIT 38.4 % (36.0-48.0); HEMOGLOBIN 12.7 g/dL (12-16); IMMATURE GRANULOCYTES 1.7 % (0-5); LYMPHOCYTES 9.7 % (15-50); MCH 29.5 pg (26.0-34.0); MCHC 33.1 g/dL (31.0-37.0); MCV 89.1 fL (80.0-100.0); MEAN PLATELET VOLUME 10.7 fL (7.4-10.4); MONOCYTES 6.9 % (2-11); NEUTROPHILS 81.4 % (40-80); PLATELET COUNT 253 10x3/uL (130-400); RBC 4.31 10x6/uL (4.00-5.40); RDW 14.5 % (11.5-14.5); WBC 12.2 10x3/uL (4.8-10.8)
[2016-05-27 04:44] LABS: ALBUMIN 1.6 g/dL (3.4-5.0); ALKALINE PHOSPHATASE 185 U/L (46-116); ALT (SGPT) 58 U/L (10-68); BILIRUBIN - TOTAL 0.39 mg/dL (0.2-1.3); CALCIUM 8.5 mg/dL (8.5-10.1); CHLORIDE - SERUM 109 mmol/L (98-107); CREATININE - SERUM 0.6 mg/dL (0.6-1.3); PHOSPHOROUS 2.9 mg/dL (2.5-4.9); POTASSIUM - SERUM 3.3 mmol/L (3.5-5.1); SODIUM 148 mmol/L (136-145); UREA NITROGEN 13 mg/dL (7-18); eGFR NON AFRICAN AMERICAN > 90 mL/min (90-120)
[2016-05-27 04:49] LABS: CALC OSMOLALITY 299 mosm/kg (275-300); CARBON DIOXIDE 33.3 mmol/L (21.0-32.0); GLUCOSE 206 mg/dL (74-106)
--- NOTE | 2016-05-27 05:30 | NUR ---
Pt repositioned to right side. HOB @ 30 degrees.
--- NOTE | 2016-05-27 06:16 | NUR ---
Pt agitated and kicking. Ativan 0.5mg IVP administered. See MAR.
--- NOTE | 2016-05-27 16:22 | NUR ---
PLACE IN CONTACT ISOLATION FOR REPORT OF C-DIFF FROM LAB
--- NOTE | 2016-05-27 19:30 | NUR ---
Assessment complete. See flowsheet. Pt eyes open and kicking leg and moaning. Pt pulled up in bed. Pt incontinent of soft, palencia stool. Incontinence care completed. Pt making eye contact and answers "no" to pain and "ok" to repositioning. Pt does not follow any conversation. Pt moving extremities to command. Pupils size 3 bilaterally ERRL. No edema noted. Pt receiving O2 @ 4L NC. Lung sounds CTA with diminished lower lobes. HR SR with S1S2 auscultated. All peripheral pulses +2 with capillary refill <3 seconds. Left A/C and forearm PIV sites discontined with sites cleansed and dressings applied with no s/s infection to sites. Left upper arm PICC line site CDI with D5W infusing @ 35cc/hr and TPN @ 40cc/hr with lipids infusing. Abdomen soft with BS hypoactive to all quadrants. Spangler secure retrieving clear/yellow urine. SCDs secure. Pt repositioned to left side after incontinence care completed. Right wrist restraint resecured. Temp 97.6F auxillary. Ativan 0.5mg administered for anxiety. See APR. CPOC.
--- NOTE | 2016-05-27 21:30 | NUR ---
Pt repositioned to right side and resting with VSS and no s/s distress or pain. Linens remain clean/dry.
--- NOTE | 2016-05-27 23:30 | NUR ---
Reassessment complete. See flowsheet. No neuro changes to note. O2 @ 4L NC. Respirations unlabored, 29/min with lung sounds clear to all isabel with diminished lower lobes. HR SR. PICC line site CDI with NO IVF changes to note. BS remain hypoactive to all quadrants. NGT remains to LIWS retrieving dark brown gastric content. Spangler secure retrieving clear/yellow urine. Pt repositioned to back with HOB @ 30 degrees. Arms and heels bridged. Right wrist restraint resecured after ROM to all extremities.
[2016-05-28] VITALS (24 sets, daily range): BP systolic 124–187; BP diastolic 59–100
--- NOTE | 2016-05-28 01:30 | NUR ---
Pt resting with VSS and allowed to continue resting undisturbed.
--- NOTE | 2016-05-28 03:30 | NUR ---
Reassessment complete. See flowsheet. No neuro changes to note. O2 @ 4L NC. Respirations unlabored, 24/min with lung sounds clear to all isabel with diminished lower lobes. HR SR. PICC line site CDI with NO IVF changes to note. BS remain hypoactive to all quadrants. NGT remains to LIWS retrieving dark brown gastric content. Spangler secure retrieving clear/yellow urine. Pt repositioned to back with HOB @ 30 degrees for CXR and KUB. Arms and heels rebridged. CPOC.
[2016-05-28 04:40] LABS: BASOPHILS 0.4 % (0.0-2.0); EOSINOPHILS 0.1 % (0-7); HEMATOCRIT 33.4 % (36.0-48.0); HEMOGLOBIN 10.9 g/dL (12-16); IMMATURE GRANULOCYTES 2.2 % (0-5); LYMPHOCYTES 13.4 % (15-50); MCH 29.1 pg (26.0-34.0); MCHC 32.6 g/dL (31.0-37.0); MCV 89.1 fL (80.0-100.0); MEAN PLATELET VOLUME 10.7 fL (7.4-10.4); NEUTROPHILS 74.9 % (40-80); RBC 3.75 10x6/uL (4.00-5.40); RDW 14.6 % (11.5-14.5)
[2016-05-28 04:41] LABS: PLATELET COUNT 173 10x3/uL (130-400); WBC 8.1 10x3/uL (4.8-10.8)
[2016-05-28 05:00] LABS: CARBON DIOXIDE 30.1 mmol/L (21.0-32.0); CHLORIDE - SERUM 104 mmol/L (98-107); CREATININE - SERUM 0.6 mg/dL (0.6-1.3); MAGNESIUM - SERUM 1.8 mg/dL (1.8-2.4); PHOSPHOROUS 3.5 mg/dL (2.5-4.9); SODIUM 142 mmol/L (136-145); UREA NITROGEN 14 mg/dL (7-18); eGFR NON AFRICAN AMERICAN > 90 mL/min (90-120)
[2016-05-28 05:01] LABS: CALC OSMOLALITY 294 mosm/kg (275-300); GLUCOSE 299 mg/dL (74-106); POTASSIUM - SERUM 3.9 mmol/L (3.5-5.1)
--- NOTE | 2016-05-28 05:30 | NUR ---
Pt repositioned to right side. HOB @ 30 degrees.
--- NOTE | 2016-05-28 06:10 | NUR ---
Dr. Ott here to see patient. Update given with questions addressed.
--- NOTE | 2016-05-28 11:00 | NUR ---
NO CHANGE NOTED
--- NOTE | 2016-05-28 15:00 | NUR ---
NO CHANGE NOTED
--- NOTE | 2016-05-28 17:32 | NUR ---
TWO INCONT. EPISODES THIS SHIFT, NONFORMED MUCUS STOOL AVILA/GREEN IN COLOR
--- NOTE | 2016-05-28 17:37 | NUR ---
PATIENT DENIES PAIN AT PRESENT
--- NOTE | 2016-05-28 19:20 | NUR ---
REPORT REC'D AND CARE ASSUMED, REC'D PT ON O2 @ 4LITERS VIA NC, AWAKE AND ORIENTED TO PERSON ONLY, CALLS OUT AT TIMES BUT FOR NO REASON, CM-ST @ 109, NGT TO LIWS, BS HYPOACTIVE X 4, ABD SOFT BUT TENDER TO LLQ, RIGHT UPPER ARM PICC LINE DRSG CDI WITH D5W @ 35CC/HR AND TPN @ 40CC/HR, BILAT ARMS WITH BRUISES, BYNUM PATENT DRAINING YELLOW URINE, BILAT SCD'S, PPP, RIGHT WRIST RESTRAINT IN USE, PT FOLLOWS COMMANDS AND SSN/SSBN ASSISTANT NAVIGATOR BILAT, WILL CONT TO MONITOR FOR CHANGES.
--- NOTE | 2016-05-28 19:40 | NUR ---
PT INCONTINET OF LIQUID BROWN STOOL, PARITAL BATH AND COMPLETED LINEN CHANGE PROVIDED, PT REPOSITIONED UP AND ONTO RIGHT SIDE SUPPORTED WITH PILLOW, PILLOW PLACED BETWEEN KNEES FOR COMFORT, SR UP X 2, VISIBLE TO NURSES STATION.
--- NOTE | 2016-05-28 21:00 | NUR ---
EVENING MEDS GIVEN, NO VISITORS IN AT THIS TIME, PT STATES "YES" WHEN ASKED IF COLD, BLANKET PROVIDED.
--- NOTE | 2016-05-28 23:40 | NUR ---
REASSESSMENT COMPLETED, ROUTINE MEDS GIVEN, PT REMAINS CONFUSED, SLEEPING AT INTERVALS, FSBS 294, 6 UNITS REGULAR INSULIN GIVEN TO RIGHT ARM, PT REPOSITIONED UP AND ONTO LEFT SIDE SUPPORTED WITH PILLOW, HEELS BRIDGED, VSS, WILL CONT TO MONITOR FOR CHANGES.
[2016-05-29] VITALS (24 sets, daily range): BP systolic 103–177; BP diastolic 52–91
--- NOTE | 2016-05-29 01:15 | NUR ---
ROUTINE MEDS GIVEN, PT REPOSITIONED ONTO BACK, VSS.
--- NOTE | 2016-05-29 03:00 | NUR ---
PT CALLING OUT FOR WATER ATTEMPTED TO EXPLAIN TO PT WHY SHE COULD NOT HAVE WATER, ORAL SWAB PROVIDED AND LIP MOISTURIZER APPLIED, PT REPOSITIONED OVER TO LEFT SIDE SUPPORTED WITH PILLOWS, VSS, WILL CONT TO MONITOR FOR CHANGES.
--- NOTE | 2016-05-29 04:45 | NUR ---
PT MORE ALERT, CAN RECALL YEAR AND CURRENT PRESIDENT, ASKING FOR "STIR STICK", ORAL SWAB PROVIDED, PT REPORTS INCONTINENT OF STOOL, COMPLETE BATH AND LINEN CHANGE PROVIDED, PT REPOSITIONED UP AND ONTO BACK, HEELS BRIDGED, HOB ELEVATED AND HAIR COMBED, WARM BLANKET PROVIDED FOR COMPLAINTS OF BEING COLD, BP STABLE, SCD'S OFF FOR BREAK, RIGHT WRIST RESTRAINT REMOVED TO SEE IF PT WILL NOT ATTEMPT TO PULL AT LINES OR TUBES, SR UP X 2, CALL LIGHT IN REACH.
[2016-05-29 05:27] LABS: CALC OSMOLALITY 295 mosm/kg (275-300); CALCIUM 9.3 mg/dL (8.5-10.1); CARBON DIOXIDE 29.6 mmol/L (21.0-32.0); CHLORIDE - SERUM 105 mmol/L (98-107); CREATININE - SERUM 0.7 mg/dL (0.6-1.3); GLUCOSE 272 mg/dL (74-106); PHOSPHOROUS 3.7 mg/dL (2.5-4.9); POTASSIUM - SERUM 4.1 mmol/L (3.5-5.1); SODIUM 142 mmol/L (136-145); eGFR NON AFRICAN AMERICAN 87 mL/min (90-120)
[2016-05-29 05:30] LABS: UREA NITROGEN 22 mg/dL (7-18)
--- NOTE | 2016-05-29 06:10 | NUR ---
SON AT BS, UPDATE GIVEN AND QUESTIONS ANSWERED, PT VISITING WITH SON DENIES NEEDS.
--- NOTE | 2016-05-29 07:00 | NUR ---
REPORT RECEIVED. ASSESSMENT COMPLETED. PATIENTS ONLY REQUEST WAS FOR AN NEW ORAL SWAB. ONE WAS GIVEN.
[2016-05-29 07:46] LABS: BASOPHILS 0.1 % (0.0-2.0); EOSINOPHILS 0 % (0-7); HEMOGLOBIN 10.4 g/dL (12-16); IMMATURE GRANULOCYTES 0.6 % (0-5); LYMPHOCYTES 9.4 % (15-50); MCH 29.1 pg (26.0-34.0); MCHC 32.5 g/dL (31.0-37.0); MCV 89.6 fL (80.0-100.0); MEAN PLATELET VOLUME 11.3 fL (7.4-10.4); MONOCYTES 5.8 % (2-11); NEUTROPHILS 84.1 % (40-80); PLATELET COUNT 152 10x3/uL (130-400); RBC 3.57 10x6/uL (4.00-5.40); RDW 14.6 % (11.5-14.5); WBC 9.6 10x3/uL (4.8-10.8)
--- NOTE | 2016-05-29 08:02 | NUR ---
ORAL CONTRAST GIVEN. PATIENT STATED THAT SHE WAS NAUSEATED. ZOFRAN GIVEN PER PRN ORDERS.
--- NOTE | 2016-05-29 09:49 | NUR ---
NUTRITION MONITORING & EVAL CHART REVIEWED. ADDED MAG AND PHOS TO AM LABS. WILL CONTINUE CURRENT TPN, CHECK LABS IN AM AND ADJUST IF NEEDED. RD FOLLOWING
--- NOTE | 2016-05-29 10:15 | NUR ---
PATIENT BACK FROM CT OF ABD AND IS NOW HAVING HER EEG STARTED.
--- NOTE | 2016-05-29 15:34 | NUR ---
ZOFRAN GIVEN PER PRN ORDERS FOR C/O NAUSEA.
--- NOTE | 2016-05-29 18:14 | NUR ---
CALLED PHARMACY REQUESTING PATIENTS 1800 DOSE OF LIPIDS, SPOKE WITH
--- NOTE | 2016-05-29 18:16 | NUR ---
PATIENT FAILED HER BEDSIDE SWALLOW EVAL. SHE WILL REMAIN NPO AT THIS TIME.
--- NOTE | 2016-05-29 18:18 | NUR ---
ATIVAN GIVEN PER PRN ORDERS AND PATIENTS REQUEST.
--- NOTE | 2016-05-29 19:20 | NUR ---
ASSESSMENT COMPLETED. SEE FLOW SHEET. O2 @ 4L VIA NC. LT NARE NGT TO LIBILL. MISA CATH INTACT. ST ON THE MONITOR. DENIES ANY NEEDS AT THIS TIME.
[2016-05-30] VITALS (31 sets, daily range): BP systolic 97–150; BP diastolic 47–78
[2016-05-30 04:30] LABS: BASOPHILS 0.2 % (0.0-2.0); EOSINOPHILS 0.1 % (0-7); IMMATURE GRANULOCYTES 0.7 % (0-5); LYMPHOCYTES 11.9 % (15-50); MCH 29.3 pg (26.0-34.0); MCHC 32.8 g/dL (31.0-37.0); MCV 89.3 fL (80.0-100.0); MEAN PLATELET VOLUME 11.6 fL (7.4-10.4); MONOCYTES 5.1 % (2-11); PLATELET COUNT 149 10x3/uL (130-400); RDW 14.5 % (11.5-14.5)
[2016-05-30 04:33] LABS: HEMOGLOBIN 8.2 g/dL (12-16); WBC 12.7 10x3/uL (4.8-10.8)
[2016-05-30 05:17] LABS: ALBUMIN 2.3 g/dL (3.4-5.0); ANION GAP 11.8 mmol/L (8-16); BILIRUBIN - TOTAL 0.4 mg/dL (0.2-1.3); CALCIUM 8.9 mg/dL (8.5-10.1); MAGNESIUM - SERUM 2.2 mg/dL (1.8-2.4); PHOSPHOROUS 4.3 mg/dL (2.5-4.9); PROTEIN - SERUM 5.4 g/dL (6.4-8.2)
[2016-05-30 05:21] LABS: CREATININE - SERUM 0.9 mg/dL (0.6-1.3); POTASSIUM - SERUM 4.8 mmol/L (3.5-5.1)
--- NOTE | 2016-05-30 07:00 | NUR ---
REPORT RECEIVED. ASSESSMENT COMPLETED. SPOUSE REMAINS AT BEDSIDE, HAVE REEXPLAINED TO HIM THE VISITING HOURS. HE STATED THAT HE KNEW, BUT HE WASN'T GOING TO SEE HER THE REST OF THE DAY SECONDARY TO HIS CHILDREN GOING TO BE UP. EXPLAINED THAT ALL 3 COULD COME BACK IF HE WANTED, AND HE STATED THAT HE WOULD STAY JUST A LITTLE LONGER AND LEAVE. REQUESTED THAT HE GO AHEAD AND LEAVE, HE DID SAY HIS GOODBYE'S AND LEFT. PATIENT DENIES NEEDS.
--- NOTE | 2016-05-30 09:00 | NUR ---
PT C/O NAUSEA. ZOFRAN GIVEN PER PRN ORDERS. DAUGHTER AND SON HERE FOR VISITATIONS. DISCUSSED WHY WE ARE HANGING BLOOD ON HER. AND ALL QUESTIONS ANSWERED.
--- NOTE | 2016-05-30 09:22 | NUR ---
NUTRITION MONITORING & EVAL CHART REVIEWED. LABS NOTED. TPN ADJUSTED AND RENEWED. MAG AND PHOS ADDED TO AM LABS. RD FOLLOWING
--- NOTE | 2016-05-30 09:45 | NUR ---
FIRST UNIT OF PRBC'S ([id number]) STARTED AFTER SAFETY CHECK WITH RENALDO HE RN. PATIENT HAS CONSENT SIGNED AND DENIES QUESTIONS. WILL MONITOR.
--- NOTE | 2016-05-30 12:10 | NUR ---
PATIENTS FIRST UNIT OF PRBC'S COMPLETED. NO S/S OF TRANSFUSION REACTION. WILL GO GET SECOND UNIT OF BLOOD. SON AND DAUGHTER HAVE RETURNED FOR VISITATION.
--- NOTE | 2016-05-30 12:20 | NUR ---
PATIENTS SECOND UNIT OF PRBC ([id number]) STARTED AFTER SAFETY CHECK WITH RENALDO HE RN. PATIENT AND FAMILY AT BEDSIDE DENIES QUESTIONS. WILL MONITOR.
--- NOTE | 2016-05-30 14:49 | NUR ---
SECONDARY TO AN ALMOST CONSTANT RUN OF STOOL FROM THE PATIENT, THE FACT THAT HER BOTTOM IS TURNING PINK, AND THAT SHE IS NOW USING HER GOWN TO SPREAD IT, A RECTAL TUBE WAS PLACED. PATIENT IS THANKFUL.
--- NOTE | 2016-05-30 15:25 | NUR ---
PATIENTS SPOUSE, SON AND DAUGHTER HERE FOR VISITING HOURS. NO QUESTIONS VOICED.
--- NOTE | 2016-05-30 15:40 | NUR ---
PATIENTS SECOND UNIT OF PRBC'S COMPLETED WITHOUT ANY S/S OF TRANSFUSION REACTION.
--- NOTE | 2016-05-30 18:39 | NUR ---
OT NOTE: PT COMPLETED BUE PROM TO FACILITATE FUNCTIONAL AROM. PT COMPLETED UE POSITIONING TO DECREASE RISK OF SKIN BREAKDOWN. THANK YOU, ANGEL OTTO/Kvng
--- NOTE | 2016-05-30 19:13 | NUR ---
REPORT RECIEVED. ASSESSMENT COMPLETE PER FLOW SHEET. VSS. REFER FOR FINDINGS. PT RESTING COMFORTABLY. WILL CONTINUE TO MONITOR.
[2016-05-31] VITALS (18 sets, daily range): BP systolic 101–180; BP diastolic 45–102
[2016-05-31 06:37] LABS: ALBUMIN 2.2 g/dL (3.4-5.0); ALKALINE PHOSPHATASE 131 U/L (46-116); ALT (SGPT) 24 U/L (10-68); CALC OSMOLALITY 290 mosm/kg (275-300); CALCIUM 8.6 mg/dL (8.5-10.1); CARBON DIOXIDE 26.4 mmol/L (21.0-32.0); CHLORIDE - SERUM 102 mmol/L (98-107); CREATININE - SERUM 0.7 mg/dL (0.6-1.3); GLUCOSE 306 mg/dL (74-106); MAGNESIUM - SERUM 2.1 mg/dL (1.8-2.4); PHOSPHOROUS 4.7 mg/dL (2.5-4.9); POTASSIUM - SERUM 6.2 mmol/L (3.5-5.1); PROTEIN - SERUM 5.4 g/dL (6.4-8.2); SODIUM 134 mmol/L (136-145); UREA NITROGEN 42 mg/dL (7-18); eGFR NON AFRICAN AMERICAN 87 mL/min (90-120)
[2016-05-31 07:01] LABS: BASOPHILS 0.1 % (0.0-2.0); EOSINOPHILS 0.1 % (0-7); HEMATOCRIT 33.3 % (36.0-48.0); HEMOGLOBIN 11.2 g/dL (12-16); IMMATURE GRANULOCYTES 0.8 % (0-5); LYMPHOCYTES 8.4 % (15-50); MCH 29.1 pg (26.0-34.0); MCHC 33.6 g/dL (31.0-37.0); MCV 86.5 fL (80.0-100.0); MONOCYTES 4.5 % (2-11); NEUTROPHILS 86.1 % (40-80); PLATELET COUNT 150 10x3/uL (130-400); RBC 3.85 10x6/uL (4.00-5.40); RDW 15.7 % (11.5-14.5); WBC 9.1 10x3/uL (4.8-10.8)
--- NOTE | 2016-05-31 07:30 | NUR ---
SHIFT ASSESSMENT COMPLETE. SEE FLOWSHEET FOR DETAILS. PT ALERT AND CONVERSANT. NGT IN PLACE. BYNUM AND RECTAL TUBE INTACT. SCD'S ON.
--- NOTE | 2016-05-31 09:00 | NUR ---
PT FAMILY AT BEDSIDE VISITING. WAS IN EARLIER. PT ALERT AND CONVERSANT. C/O BACK PAIN, WAS PULLED UP IN BED AND REPOSITIONED.
--- NOTE | 2016-05-31 09:54 | NUR ---
NUTRITION MONITORING & EVAL CHART REVIEWED. LABS NOTED, POTASSIUM ON HOLD. POTASSIUM, MAG AND PHOS DECREASED IN TPN ORDERS YESTERDAY. IV LASIX ADMINISTERED. WILL RECHECK LABS AT NOON. RD FOLLOWING
[2016-05-31 12:20] LABS: CALCIUM 8.9 mg/dL (8.5-10.1); CARBON DIOXIDE 25.1 mmol/L (21.0-32.0); CHLORIDE - SERUM 102 mmol/L (98-107); CREATININE - SERUM 0.7 mg/dL (0.6-1.3); MAGNESIUM - SERUM 1.9 mg/dL (1.8-2.4); PHOSPHOROUS 4.2 mg/dL (2.5-4.9); SODIUM 135 mmol/L (136-145); UREA NITROGEN 37 mg/dL (7-18); eGFR NON AFRICAN AMERICAN 87 mL/min (90-120)
[2016-05-31 12:21] LABS: CALC OSMOLALITY 284 mosm/kg (275-300); GLUCOSE 207 mg/dL (74-106); POTASSIUM - SERUM 5.1 mmol/L (3.5-5.1)
--- NOTE | 2016-05-31 12:26 | NUR ---
VOICE HERE TO SEE PATIENT. SAYS TO CARLOS A NGT AND START ON CLEAR LIQUID DIET.
--- NOTE | 2016-05-31 12:42 | NUR ---
NGT REMOVED, NO DIFFICULTY. PT ABLE TO TAKE LIQUIDS BY MOUTH WITH NO DIFFICULTY.
--- NOTE | 2016-05-31 14:27 | NUR ---
PT UP IN CHAIR. PHYSICAL THERAPY HAS BEEN IN TO SEE HER AND ASSIST. PT TOLERATING WELL.
--- NOTE | 2016-05-31 16:19 | NUR ---
PT SLEEPING. PROPPED UP IN RIGHT SIDE BETWEEN TWO PILLOWS. NO DISTRESS NOTED. VSS.
--- NOTE | 2016-05-31 23:15 | NUR ---
Reassessment completed per flowsheet, patient resting in bed with eyes closed. Patient NSR on telemetry, rhythmic and regular. Breathing is even and unlabored on 5L via NC, O2 sat 97%. Patient denies pain or other needs at this time, all VSS and will continue to monitor.
[2016-06-01] VITALS (10 sets, daily range): BP systolic 105–166; BP diastolic 50–74
--- NOTE | 2016-06-01 03:00 | NUR ---
Reassessment completed per flowsheet, patient resting in bed with eyes open. Patient NSR on telemetry, rhythmic and regular. Breathing is even and unlabored on 4L via NC, lung sounds clear upper with fine crackles noted bilateral lower. Patient denies pain or other needs at this time, all VSS and will continue to monitor.
[2016-06-01 04:23] LABS: BASOPHILS 0.1 % (0.0-2.0); EOSINOPHILS 0.8 % (0-7); HEMATOCRIT 30.8 % (36.0-48.0); HEMOGLOBIN 10.3 g/dL (12-16); IMMATURE GRANULOCYTES 0.5 % (0-5); LYMPHOCYTES 15.4 % (15-50); MCH 29.5 pg (26.0-34.0); MCHC 33.4 g/dL (31.0-37.0); MCV 88.3 fL (80.0-100.0); MEAN PLATELET VOLUME 11.8 fL (7.4-10.4); MONOCYTES 3.8 % (2-11); NEUTROPHILS 79.4 % (40-80); PLATELET COUNT 159 10x3/uL (130-400); RBC 3.49 10x6/uL (4.00-5.40); RDW 15.5 % (11.5-14.5); WBC 8.4 10x3/uL (4.8-10.8)
[2016-06-01 04:37] LABS: ALBUMIN 1.9 g/dL (3.4-5.0); ALKALINE PHOSPHATASE 122 U/L (46-116); BILIRUBIN - TOTAL 0.46 mg/dL (0.2-1.3); CALCIUM 8.2 mg/dL (8.5-10.1); CARBON DIOXIDE 24.1 mmol/L (21.0-32.0); CHLORIDE - SERUM 98 mmol/L (98-107); CREATININE - SERUM 0.7 mg/dL (0.6-1.3); PHOSPHOROUS 4.1 mg/dL (2.5-4.9); PROTEIN - SERUM 5.1 g/dL (6.4-8.2); SODIUM 130 mmol/L (136-145); eGFR NON AFRICAN AMERICAN 87 mL/min (90-120)
[2016-06-01 04:38] LABS: ALT (SGPT) 31 U/L (10-68); CALC OSMOLALITY 280 mosm/kg (275-300); GLUCOSE 383 mg/dL (74-106); MAGNESIUM - SERUM 1.4 mg/dL (1.8-2.4); POTASSIUM - SERUM 4.3 mmol/L (3.5-5.1); UREA NITROGEN 23 mg/dL (7-18)
--- NOTE | 2016-06-01 05:08 | NUR ---
Patient resting in bed with eyes closed, breathing is even and unlabored. Patient denies pain or other needs at this time, assisted repositioning for comfort. All VSS and will continue to monitor.
--- NOTE | 2016-06-01 09:54 | NUR ---
NUTRITION MONITORING & EVAL CHART REVIEWED, SPOKE WITH NURSING. PT REMAINS IN ISOLATION. TPN DC'D. TOLERATING SMALL AMTS PUREED DIET. RD FOLLOWING
--- NOTE | 2016-06-01 10:15 | NUR ---
0700 PT AWAKE ALERT AND ORIENTED X4. ABLE TO OBEY COMMANDS. NORMAL SINUS ON MONITOR. SINAI STATES PT CAN TRANSFER TO FLOOR AFTER VERIFYING WITH OTHER PHYSICIANS. PICC LINE PATENT DRY AND INTACT. WILL CONTINUE TO MONITOR FOR ANY CHANGES
--- NOTE | 2016-06-01 10:18 | NUR ---
0900 PT EATING BREAKFAST WITHOUT DIFFICULTY. AT BEDSIDE. REPOSITIONED IN BED. VITAL SIGNS STABLE.
--- NOTE | 2016-06-01 12:15 | NUR ---
1100 PT UP IN CHAIR WITH PHYSICAL THERAPY. RECTAL TUBE IRRIGATED. TRANSFER ORDERS IN. WILL WAIT FOR BED. VITAL SIGNS STABLE
--- NOTE | 2016-06-01 13:17 | NUR ---
1300 PHYSICAL THERAPY CALLED. WILL TRANSFER PT VIA WHEELCHAIR TO [facility]. VITAL SIGNS STABLE.
--- NOTE | 2016-06-01 14:49 | NUR ---
RECEIVED FROM ICU, DENIES NEEDS, NO DISTRESS NOTED, WILL CONTINUE TO MONITOR
--- NOTE | 2016-06-01 14:58 | NUR ---
1440 PT TRANSFERRED TO [facility] VIA WHEELCHAIR WITH PHYSICAL THERAPY. BELONGINGS WITH PT. PT STABLE WITH NO COMPLAINTS. REPORT GIVEN
--- NOTE | 2016-06-01 18:35 | NUR ---
OT NOTE: PT COMPLETED BUE POSITIONING TO DECREASE RISK OF SKIN BREAKDOWN. THANK YOU, ANGEL OTTO/Kvng
[2016-06-02] VITALS: BP 114/55
[2016-06-02 04:00] VITALS: BP 147/71
--- NOTE | 2016-06-02 04:48 | NUR ---
PT IS ASLEEP WITH EASY RESPIRATIONS AND NO DISTRESS NOTED. THERE IS NO O2 IN USE. THE BED IS LOW, RAILS UP X'S 2 WITH THE CALL LIGHT AT HAND.
[2016-06-02 06:46] LABS: BASOPHILS 0.2 % (0.0-2.0); EOSINOPHILS 0.2 % (0-7); HEMATOCRIT 29.1 % (36.0-48.0); HEMOGLOBIN 10.1 g/dL (12-16); IMMATURE GRANULOCYTES 0.5 % (0-5); LYMPHOCYTES 9.3 % (15-50); MCH 29.9 pg (26.0-34.0); MCHC 34.7 g/dL (31.0-37.0); MEAN PLATELET VOLUME 11.3 fL (7.4-10.4); MONOCYTES 5.4 % (2-11); NEUTROPHILS 84.4 % (40-80); RBC 3.38 10x6/uL (4.00-5.40); RDW 15.1 % (11.5-14.5); WBC 6.3 10x3/uL (4.8-10.8)
[2016-06-02 06:47] LABS: MCV 86.1 fL (80.0-100.0); PLATELET COUNT 225 10x3/uL (130-400)
[2016-06-02 07:02] LABS: ALBUMIN 1.8 g/dL (3.4-5.0); ALKALINE PHOSPHATASE 152 U/L (46-116); BILIRUBIN - TOTAL 0.48 mg/dL (0.2-1.3); CALCIUM 8.6 mg/dL (8.5-10.1); CARBON DIOXIDE 22.2 mmol/L (21.0-32.0); CHLORIDE - SERUM 101 mmol/L (98-107); POTASSIUM - SERUM 3.9 mmol/L (3.5-5.1); PROTEIN - SERUM 5.3 g/dL (6.4-8.2); SODIUM 134 mmol/L (136-145)
[2016-06-02 07:05] LABS: ALT (SGPT) 39 U/L (10-68); CALC OSMOLALITY 272 mosm/kg (275-300); CREATININE - SERUM 0.5 mg/dL (0.6-1.3); GLUCOSE 165 mg/dL (74-106); UREA NITROGEN 16 mg/dL (7-18); eGFR NON AFRICAN AMERICAN > 90 mL/min (90-120)
--- NOTE | 2016-06-02 07:40 | NUR ---
AWAKE IN BED, SLIGHTLY CONFUSED, REQUEST TO HAVE HER RECTAL TUBE TAKEN OUT, ALSO SHE WANTS HER BYNUM REMOVED, DENIES OTHER NEEDS, CALL LIGHT IN REACH, BED LOWEST POSITION, BED ALRAM ON
[2016-06-02 08:04] VITALS: BP 151/70
--- NOTE | 2016-06-02 11:00 | NUR ---
SITTING UP IN CHAIR.PT WITHOUT DISTRESS.CALL LIGHT IN REACH
[2016-06-02 12:45] VITALS: BP 123/61
--- NOTE | 2016-06-02 12:49 | NUR ---
UP TO CHAIR WITH PT, SITTING IN CHAIR EATING LUNCH, DENIES NEEDS
--- NOTE | 2016-06-02 15:13 | EEG ---
PATIENT:FOSTER DUQUE DATE OF SERVICE: 05/14/16 MEDICAL RECORD: [id number] DATE OF : 44 LOCATION:D.222 D.MS ADMISSION DATE: 05/14/16 REFERRING PHYSICIAN: INTERPRETING PHYSICIAN: PABLO HOOD MD DATE OF SERVICE: 05/29/2016 Electroencephalographic Report Referred by myself as an inpatient in room 2306. ELECTROENCEPHALOGRAM NUMBER: [id number]. DATE OF EXAMINATION: 05/29/2016 at 10:30 a.m. DATE OF : 1940 TECHNICAL DATA: This electroencephalographic recording consisted of approximately 20 minutes of data collection utilizing the international 10/20 system of electrode placement and both referential and non-referential montages. Sixteen channels of electrocerebral recording are accompanied by a 17th channel dedicated to the electrocardiographic rhythm and 2 channels of electromyographic recording. Recording is performed entirely in the lethargic state utilizing activation by photic stimulation. ELECTROENCEPHALOGRAPHIC DATA: The entirety of the recorded electrocerebral activity is performed in the lethargic state. Electromyographic artifact is mildly diminished. Rapid eye movements are seen through most of the recording. The posterior dominant background is poorly developed and consists of a symmetric semi-arrhythmic waxing and waning 5-6 Hz theta activity. Effective eye closure was not demonstrated. Also seen as an intermittent irregular generalized and symmetric 2-3 Hz delta slowing, which occurs for periods of 1-2 seconds approximately once every 2-3 pages. No focal slowing is identified. No epileptiform discharges are seen. Photic stimulation induces no change in the recorded electrocerebral activity. INTERPRETATION: 1. Intermittent slow, generalized (lethargy). 2. Background slow. This electroencephalographic recording is indicative of a moderate diffuse encephalopathy. TRANSINT:[id number] Voice Confirmation ID: [id number] DOCUMENT ID: [id number] ELECTROENCEPHALOGRAM REPORT [id number] FOSTER DUQUE CHAY PABLO HOOD MD at 1513 CC: [id number] DICTATION DATE: 05/30/16 0610 MACHINE OVERHAULER: 05/30/16 1139 ADM IN [place] [id number] [place] [address]
--- NOTE | 2016-06-02 16:02 | NUR ---
RECTAL TUBE AND BYNUM DC'D PER ORDER, MINIMAL DISCOMFORT, BED JUSTICE PROVIDED
--- NOTE | 2016-06-02 16:05 | NUR ---
OT NOTE: PT COMPLETED BUE AROM EXS IN ALL PLANES FOR INCREASED AX TOLERANCE. PT COMPLETED BED MOB WITH SBA. THANK YOU, ANGEL OTTO/Kvng
[2016-06-02 16:10] VITALS: BP 119/51
--- NOTE | 2016-06-02 17:02 | NUR ---
PT SEEN IN AM.. SHE LOOKED VERY WELL, SHE WAS SITTING UP IN CHAIR ATTEMPTING TO REMOVE HER SOCKS; STILL WITH CONFUSION, HOWEVER, SHE WAS CONVERSANT TODAY. AT BEDSIDE. ATTEMPTED SEVERAL TIMES TO PERFORM SIT TO STAND..PT REQUIRED CONSTANT CUEING OF HAND PLACEMENT AND MAX ASSIST FOR TASK; ABLE TO FOLLOW 1 STEP SIMPLE COMMANDS; SET UP FOR FEEDING WITH ONLY SMALL AMOUNT CONSUMED
[2016-06-02 20:33] VITALS: BP 97/52
[2016-06-03 00:17] VITALS: BP 125/62
[2016-06-03 04:00] VITALS: BP 132/66
--- NOTE | 2016-06-03 07:30 | NUR ---
PT ASSESSMENT COMPELTE AWAKE AND ALERT ORINETED TO NAME ONLY. CALL LIGHT INREACH SIDE RAILS UP X 2 VOICES ALL NEEDS TO STAFF CALL LIGHT IN REACH SIDE RAILS UP X 2
[2016-06-03 08:24] VITALS: BP 131/60
--- NOTE | 2016-06-03 10:30 | NUR ---
PT WITH NO ACUTE DISTRESS NTOED VOICES ALL NEDS TO STAFF CALL LIGHT IN REACH SIDE RAILS UP X 2 VOICES ALL NEEDS SPOUSE AT BEDSIDE.
[2016-06-03 10:39] LABS: BASOPHILS 0.1 % (0.0-2.0); EOSINOPHILS 0.3 % (0-7); HEMOGLOBIN 9.4 g/dL (12-16); IMMATURE GRANULOCYTES 0.4 % (0-5); LYMPHOCYTES 13.1 % (15-50); MCH 29.5 pg (26.0-34.0); MCHC 33.6 g/dL (31.0-37.0); MCV 87.8 fL (80.0-100.0); MEAN PLATELET VOLUME 10.7 fL (7.4-10.4); MONOCYTES 8.7 % (2-11); NEUTROPHILS 77.4 % (40-80); PLATELET COUNT 353 10x3/uL (130-400); RBC 3.19 10x6/uL (4.00-5.40); WBC 11.8 10x3/uL (4.8-10.8)
[2016-06-03 10:46] LABS: CALCIUM 8.8 mg/dL (8.5-10.1); CHLORIDE - SERUM 102 mmol/L (98-107); GLUCOSE 173 mg/dL (74-106); POTASSIUM - SERUM 3.5 mmol/L (3.5-5.1); SODIUM 134 mmol/L (136-145); eGFR NON AFRICAN AMERICAN 87 mL/min (90-120)
[2016-06-03 10:54] LABS: CALC OSMOLALITY 276 mosm/kg (275-300); CREATININE - SERUM 0.7 mg/dL (0.6-1.3); UREA NITROGEN 26 mg/dL (7-18)
--- NOTE | 2016-06-03 10:58 | NUR ---
NUTRITION MONITORING & EVAL NURSING REPORTS PT WANTS TO SPEAK WITH DIETITIAN. DISCUSSED DIET WITH PT, FOOD PREFERENCES ADDED TO DIET. RD FOLLOWING
[2016-06-03 12:14] VITALS: BP 116/62
--- NOTE | 2016-06-03 13:00 | NUR ---
PATIENT SITTING UP IN CHAIR AT BEDSIDE. RESPIRATIONS EVEN AND UNLABORED. AT BEDSIDE. CALL LIGHT IN REACH.
[2016-06-03 16:30] VITALS: BP 108/51
--- NOTE | 2016-06-03 18:09 | NUR ---
NO ACUTE DISTRESS NOTE DVOICES ALL NEEDS TO STAFF CALL LIGHT IN REACH
[2016-06-03 20:00] VITALS: BP 107/47
[2016-06-04] VITALS (11 sets, daily range): BP systolic 97–141; BP diastolic 50–90
[2016-06-04 04:51] LABS: BASOPHILS 0.1 % (0.0-2.0); EOSINOPHILS 0.2 % (0-7); IMMATURE GRANULOCYTES 0.7 % (0-5); LYMPHOCYTES 13.1 % (15-50); MCH 29.5 pg (26.0-34.0); MCHC 33.6 g/dL (31.0-37.0); MCV 87.7 fL (80.0-100.0); MEAN PLATELET VOLUME 10.6 fL (7.4-10.4); MONOCYTES 7.6 % (2-11); NEUTROPHILS 78.3 % (40-80); PLATELET COUNT 306 10x3/uL (130-400)
[2016-06-04 04:55] LABS: RBC 2.44 10x6/uL (4.00-5.40)
[2016-06-04 04:56] LABS: HEMATOCRIT 21.4 % (36.0-48.0); HEMOGLOBIN 7.2 g/dL (12-16)
[2016-06-04 05:12] LABS: ALBUMIN 1.5 g/dL (3.4-5.0); ALKALINE PHOSPHATASE 183 U/L (46-116); CALCIUM 8.4 mg/dL (8.5-10.1); CARBON DIOXIDE 24.4 mmol/L (21.0-32.0); CHLORIDE - SERUM 102 mmol/L (98-107); POTASSIUM - SERUM 3.3 mmol/L (3.5-5.1); PROTEIN - SERUM 4.4 g/dL (6.4-8.2); SODIUM 133 mmol/L (136-145); UREA NITROGEN 21 mg/dL (7-18)
[2016-06-04 05:20] LABS: ALT (SGPT) 77 U/L (10-68); CALC OSMOLALITY 269 mosm/kg (275-300); CREATININE - SERUM 0.5 mg/dL (0.6-1.3); GLUCOSE 117 mg/dL (74-106); eGFR NON AFRICAN AMERICAN > 90 mL/min (90-120)
--- NOTE | 2016-06-04 08:30 | NUR ---
ASSESSMENT PER FLOW SHEET.PT WITHOUT DISTRESS.ISOLATION MAINTAINED.CALL LIIGHT IN REACH
--- NOTE | 2016-06-04 14:15 | NUR ---
UNIT 1 OF 2 PRBC'S INITIATED.PT WITHOUT REACTIONS.MONITOR
--- NOTE | 2016-06-04 16:15 | NUR ---
UNIT 1 OF 2 PRBC'S I COMPLETE.PT WITHOUT REACTIONS.
--- NOTE | 2016-06-04 16:46 | NUR ---
RESTING IN BED WITH TV ON. NO NEEDS NOTED.
--- NOTE | 2016-06-04 17:00 | NUR ---
UNIT 2 OF 2 PRBC'S INITIATED.PT WITHOUT REACTIONS.
--- NOTE | 2016-06-04 18:00 | NUR ---
REMAINS WITHOUT NEEDAS.REMAINS WITHOUT REACTIONS.CONT PLAN OF CARE
[2016-06-05] VITALS: BP 141/61
--- NOTE | 2016-06-05 02:00 | NUR ---
PT IN BED WITH NO DISTRESS. RESPIRATIONS ARE EVEN AND UNLABORED. SIDE RAILS X 2. BED LOW. BED ALARM ON. CALL LIGHT IN REACH.
--- NOTE | 2016-06-05 02:13 | NUR ---
EYES CLOSED RESPIRATIONS WITH EASE AND UNLABORED DENIES NEEDS.
[2016-06-05 04:00] VITALS: BP 151/61
[2016-06-05 08:12] LABS: BASOPHILS 0.2 % (0.0-2.0); EOSINOPHILS 0.2 % (0-7); IMMATURE GRANULOCYTES 1.7 % (0-5); LYMPHOCYTES 17.2 % (15-50); MEAN PLATELET VOLUME 10.4 fL (7.4-10.4); MONOCYTES 6.6 % (2-11); NEUTROPHILS 74.1 % (40-80); PLATELET COUNT 296 10x3/uL (130-400); RDW 14.8 % (11.5-14.5); WBC 10.2 10x3/uL (4.8-10.8)
[2016-06-05 08:19] LABS: RBC 3.65 10x6/uL (4.00-5.40)
[2016-06-05 08:20] LABS: CALC OSMOLALITY 274 mosm/kg (275-300); CALCIUM 8.4 mg/dL (8.5-10.1); CARBON DIOXIDE 21.7 mmol/L (21.0-32.0); CHLORIDE - SERUM 104 mmol/L (98-107); CREATININE - SERUM 0.5 mg/dL (0.6-1.3); GLUCOSE 103 mg/dL (74-106); HEMATOCRIT 31.2 % (36.0-48.0); HEMOGLOBIN 10.6 g/dL (12-16); MCV 85.5 fL (80.0-100.0); POTASSIUM - SERUM 3.8 mmol/L (3.5-5.1); SODIUM 136 mmol/L (136-145); UREA NITROGEN 20 mg/dL (7-18); eGFR NON AFRICAN AMERICAN > 90 mL/min (90-120)
[2016-06-05 08:34] VITALS: BP 158/68
[2016-06-05 11:25] VITALS: BP 154/64
--- NOTE | 2016-06-05 12:31 | NUR ---
OT NOTE: PT ALERT UPON ENTERING ROOM; PERFORMED BED MOB WITH MIN/MOD ASSIST TO INCLUDE ROLLING AND SUPINE TO SIT; PERFORMED STATIC SITTING X 5 MIN WITHOUT ASSIST; REFUSED TO ATTEMPT TO STAND; UPON RETURNING TO SUPINE POSITION, PT WAS NOTED TO HAVE A BM..PT WAS CLEANED AND PAD WAS CHANGED
[2016-06-05 15:40] VITALS: BP 104/51
[2016-06-05 19:00] VITALS: BP 139/58
--- NOTE | 2016-06-05 19:40 | NUR ---
PATIENT IN BED, AT BEDSIDE. ASSIST WITH BEDPAN. I.V. PATENT, BED LOW, CALL LIGHT IN REACH. BED RAILS UP x 2. CONTINUE TO MONITOR
--- NOTE | 2016-06-05 19:42 | NUR ---
PATIENT ALERT AND ORIENTED TO PERSON, PLACE AND TIME. PLEASANT BUT GIMACING UPON MOVEMENT. SHE IS EATING WITH COAXING. HAS HAD SOME NAUSEA. CONTINUE TO MONITOR
[2016-06-06] VITALS: BP 123/61
--- NOTE | 2016-06-06 01:53 | NUR ---
REC'D PATIENT LYING IN BED WATCHING TV. ALERT AND ORIENTED X4. DENIES PAIN AT THE START OF THE SHIFT. IS NOW WANTING SOME TYLENOL. SAID SHE TALKED TO THE DR. AND HE WAS GOING TO ORDER SOME. NO DISTRESS NOTED. WAS WET, YANN GOLDEN GAVE HER A BATH AND CHANGED LINENS. ADMINISTERD MEDS PRESCRIBED. DENIED FURTHER NEEDS AT THIS TIME. INSTUCTED TO CALL IF NEED ANYTHING. BED LOW LOCKED CALL LIGHT IN REACH, ALARM ON.
[2016-06-06 04:00] VITALS: BP 147/63
--- NOTE | 2016-06-06 05:57 | NUR ---
PATIENT IS RESTING IN BED. JUST TOOK HER OFF OF THE BEDPAN. NO DISTRESS NOTED. INSTRUCTED TO CALL IF NEEDED ANYTHING. BED LOW, LOCKED, CALL LIGHT IN REACH.
[2016-06-06 06:07] LABS: BASOPHILS 0.2 % (0.0-2.0); EOSINOPHILS 0.2 % (0-7); HEMATOCRIT 26.7 % (36.0-48.0); IMMATURE GRANULOCYTES 0.7 % (0-5); LYMPHOCYTES 12.6 % (15-50); MCH 29.4 pg (26.0-34.0); MCHC 33.7 g/dL (31.0-37.0); MCV 87.3 fL (80.0-100.0); MEAN PLATELET VOLUME 10.7 fL (7.4-10.4); MONOCYTES 6.2 % (2-11); NEUTROPHILS 80.1 % (40-80); PLATELET COUNT 327 10x3/uL (130-400); RBC 3.06 10x6/uL (4.00-5.40); RDW 15.3 % (11.5-14.5)
[2016-06-06 06:16] LABS: WBC 12.9 10x3/uL (4.8-10.8)
[2016-06-06 07:01] LABS: ALBUMIN 1.6 g/dL (3.4-5.0); ALKALINE PHOSPHATASE 181 U/L (46-116); ALT (SGPT) 65 U/L (10-68); CALC OSMOLALITY 277 mosm/kg (275-300); CALCIUM 8.5 mg/dL (8.5-10.1); CARBON DIOXIDE 23.3 mmol/L (21.0-32.0); CHLORIDE - SERUM 106 mmol/L (98-107); CREATININE - SERUM 0.5 mg/dL (0.6-1.3); GLUCOSE 125 mg/dL (74-106); POTASSIUM - SERUM 3.6 mmol/L (3.5-5.1); PROTEIN - SERUM 4.6 g/dL (6.4-8.2); SODIUM 137 mmol/L (136-145); UREA NITROGEN 20 mg/dL (7-18); eGFR NON AFRICAN AMERICAN > 90 mL/min (90-120)
--- NOTE | 2016-06-06 07:45 | NUR ---
ASSISTED TO BEDSIDE COMMODE WHERE PT HAD SMALL AMOUNT OF STOOL AT THIS TIME. ASSISTED PT WITH WIPING AND AMBULATING TO CHAIR. JON MAT ALARM IN CHAIR. CALL LIGHT IN REACH, WILL CONTINUE WITH PLAN OF CARE.
[2016-06-06 08:10] VITALS: BP 154/73
--- NOTE | 2016-06-06 11:31 | NUR ---
SCHEDULED MEDICATIONS ADMINISTERED AT THIS TIME. AT BEDSIDE. SRX2 WITH BED IN LOWEST POSITION AND WHEELS LOCKED. CALL LIGHT IN REACH, WILL CONTINUE WITH PLAN OF CARE.
[2016-06-06 11:32] VITALS: BP 116/51
--- NOTE | 2016-06-06 12:51 | NUR ---
SCHEDULED MEDICATIONS ADMINISTERED AT THIS TIME. REMAINS AT BEDSIDE. CALL LIGHT IN REACH, WILL CONTINUE WITH PLAN OF CARE.
--- NOTE | 2016-06-06 14:15 | NUR ---
PT'S REPORTS THAT SHE IS REFUSING THERAPY AND REFUSING TO EAT. CALL LIGHT IN REACH, REMAINS IN ISOLATION. SRX2 WITH BED IN LOWEST POSITION AND WHEELS LOCKED. BED ALARM ON. WILL CONTINUE WITH PLAN OF CARE.
--- NOTE | 2016-06-06 17:48 | NUR ---
OT NOTE: PT COMPLETED BUE AROM EXS IN ALL PLANES. PT COMPLETED BED MOB WITH SBA. PT COMPLETED SIMPLE GROOMING TASK WITH SBA. THANK YOU, ANGEL OTTO/Kvng
[2016-06-06 19:00] VITALS: BP 102/45
--- NOTE | 2016-06-06 20:57 | NUR ---
rec'd in bed yelling help asked how can i help you 'states i don't know.alert with periods of confusion.contact isolation remains in progress.will continue to monitor for any chges and follow current plan of care.
[2016-06-07 04:00] VITALS: BP 143/64
[2016-06-07 05:27] LABS: BASOPHILS 0.1 % (0.0-2.0); EOSINOPHILS 0.3 % (0-7); HEMATOCRIT 23.3 % (36.0-48.0); HEMOGLOBIN 7.9 g/dL (12-16); IMMATURE GRANULOCYTES 0.5 % (0-5); LYMPHOCYTES 10.9 % (15-50); MCH 30.2 pg (26.0-34.0); MCHC 33.9 g/dL (31.0-37.0); MCV 88.9 fL (80.0-100.0); MEAN PLATELET VOLUME 10.2 fL (7.4-10.4); MONOCYTES 4.7 % (2-11); NEUTROPHILS 83.5 % (40-80); PLATELET COUNT 318 10x3/uL (130-400); RBC 2.62 10x6/uL (4.00-5.40); RDW 15.6 % (11.5-14.5); WBC 14.7 10x3/uL (4.8-10.8)
[2016-06-07 05:40] LABS: ALBUMIN 1.7 g/dL (3.4-5.0); ALKALINE PHOSPHATASE 160 U/L (46-116); ALT (SGPT) 56 U/L (10-68); BILIRUBIN - TOTAL 0.36 mg/dL (0.2-1.3); CALC OSMOLALITY 275 mosm/kg (275-300); CALCIUM 8.6 mg/dL (8.5-10.1); CARBON DIOXIDE 22.8 mmol/L (21.0-32.0); CHLORIDE - SERUM 105 mmol/L (98-107); CREATININE - SERUM 0.4 mg/dL (0.6-1.3); GLUCOSE 86 mg/dL (74-106); POTASSIUM - SERUM 3.5 mmol/L (3.5-5.1); PROTEIN - SERUM 4.8 g/dL (6.4-8.2); SODIUM 137 mmol/L (136-145); UREA NITROGEN 20 mg/dL (7-18); eGFR NON AFRICAN AMERICAN > 90 mL/min (90-120)
--- NOTE | 2016-06-07 08:10 | NUR ---
ASLEEP, BREATHING EVEN AND UNLABORED, WAITING FOR TO SIGN CONSENT FOR EGD WITH TIVA, CALL LIGHT IN REACH, WILL CONTINUE TO MONITOR
--- NOTE | 2016-06-07 13:45 | NUR ---
AWAKE AND ALERT AT THIS TIME. AT BEDSIDE. REMAINS IN ENTERIC ISOLATION. DENIES NEEDS AT THIS TIME. CALL LIGHT IN REACH, WILL CONTINUE WITH PLAN OF CARE.
--- NOTE | 2016-06-07 14:53 | NUR ---
OT NOTE: PT OUT FOR PROCEDURE IN AM
[2016-06-07 16:12] VITALS: BP 132/58
--- NOTE | 2016-06-07 16:42 | OP ---
PATIENT NAME: FOSTER DUQUE MEDICAL RECORD: [id number] :42 LOCATION:D.MS [facility] ADMISSION DATE:05/14/16 SURGEON: LENIN TATUM DO DATE OF OPERATION: 06/07/2016 PROCEDURE: EGD with biopsies. SCOPE: Olympus video pediatric colonoscope. MEDICATIONS: Propofol 120 mg IV per anesthesia. INDICATIONS: Continued melena and anemia. FINDINGS: Informed consent was given. The patient was made comfortable with the above medication. After reaching an adequate level of sedation by slow IV push, the patient was placed on her left side. The pediatric colonoscope was then advanced under direct visualization through the mouth down to the jejunum. The esophagus appeared normal in its entirety. The scope was advanced into the stomach and retroflexed to view the cardia where a possible small sliding hiatal hernia was present. The scope was then advanced down into the body in the antrum and prepyloric region of the stomach. At this time, it was noted that there was some oozing of bright red blood, which seemed to be emanating from the duodenal bulb. There were no specific ulcerations or abnormalities within the stomach itself. The scope was advanced into the duodenum where superficial ulceration and granulation tissue were present throughout the entire duodenum. There were some sites, which were oozing in the duodenum, but not consistently or persistently. No interventions were undertaken. Multiple biopsies were taken of multiple ulcerative sites. The scope was advanced beyond the duodenum into the jejunum where there was a transitions point to normal tissue. The scope was then withdrawn back into the stomach and random biopsies were taken in the stomach to rule out H. pylori and to send for histology. The scope was then withdrawn from the patient. The patient tolerated the procedure well and there were no complications. IMPRESSION: Multiple superficial ulcerations of the duodenum, raising suspicion for inflammatory bowel disease which may have improved with steroids since the last upper endoscopy. PLAN AND RECOMMENDATIONS: 1. We will plan to repeat a colonoscopy tomorrow to reevaluate the ulcerative sites in the colon and to perform more biopsies. 2. Await current biopsy results with treatment to be planned after receiving those results. TRANSINT:[id number] Voice Confirmation ID: [id number] DOCUMENT ID: [id number] LENIN TATUM DO at 1646 CC: [id number] DICTATION DATE: 06/07/16 1149 PRICE LISTER: 06/07/16 1354 ADM IN [facility] [address] [id number]
--- NOTE | 2016-06-07 17:41 | NUR ---
OT NOTE: PT COMPLETED GROOMING AND HYGIENE TASK WITH SET UP. PT COMPLETED BUE AROM EXS FOR INCREASED AX TOLERANCE. PT COMPLETED BED MOB WITH USE OF SIDE RAILS. THANK YOU, ANGEL OTTO/Kvng
[2016-06-07 19:00] VITALS: BP 97/45
--- NOTE | 2016-06-07 21:34 | NUR ---
AWAKE,ALERT, IV INFUSING TO RIGHT PICC WIHTOUT REDNESS OR EDEMA. MORPHINE 1 MG GIVEN FOR COMPLAINTS OF PAIN. CL IN REACH.
--- NOTE | 2016-06-08 01:59 | NUR ---
RESTING QUIETLY. NO DISTRESS NOTED. CL IN REACH.
--- NOTE | 2016-06-08 07:50 | NUR ---
ASSESSMENT PER FLOW SHET.PT WITHOUT DISTRESS.ISOLATION MAINTAINED.INCONTINENT OF STOOL.BED CHANGE AND BATH. STOOLS VERY DARK AND WATERY.
[2016-06-08 08:49] LABS: BASOPHILS 0 % (0.0-2.0); EOSINOPHILS 0.2 % (0-7); IMMATURE GRANULOCYTES 0.5 % (0-5); LYMPHOCYTES 8.5 % (15-50); MCH 27.8 pg (26.0-34.0); MCHC 33.1 g/dL (31.0-37.0); MONOCYTES 2.7 % (2-11); NEUTROPHILS 88.1 % (40-80); PLATELET COUNT 257 10x3/uL (130-400); RDW 18.4 % (11.5-14.5)
[2016-06-08 08:50] LABS: HEMATOCRIT 31.1 % (36.0-48.0); HEMOGLOBIN 10.3 g/dL (12-16); MCV 83.8 fL (80.0-100.0); RBC 3.71 10x6/uL (4.00-5.40); WBC 10.5 10x3/uL (4.8-10.8)
[2016-06-08 09:08] VITALS: BP 138/66
[2016-06-08 12:55] VITALS: BP 97/51
--- NOTE | 2016-06-08 13:57 | NUR ---
REMAINS WITHOUT NAUSEA.WITHOUT NEEDS.CALL LIGHT IN REACH.ISOLATION MAINTAINED
--- NOTE | 2016-06-08 15:01 | NUR ---
NUTRITION MONITORING & EVAL PT REMAINS IN ISOLATION. CONTINUES POOR PO INTAKE. RECEIVING GLUCERNA SHAKE WITH MEALS. MINIMAL INTAKE. RD FOLLOWING
[2016-06-08 16:59] VITALS: BP 115/71
--- NOTE | 2016-06-08 17:20 | NUR ---
OT NOTE: PT COMPLETED BUE AROM FOR INCREASED AX TOLERANCE. PT COMPLETED BED MOBILITY WITH SBA/CGA. THANK YOU, ANGEL OTTO/Kvng
--- NOTE | 2016-06-08 19:30 | NUR ---
PT RECEIVED RESTING SITTING UP IN BED WATCHING TELEVISION. PT IS ALERT AND ORIENTED X3. LUNG SOUNDS CLEAR BILATERALLY. PT C/O ABD PAIN 09/28. DENIES OTHER NEEDS AT THIS TIME. PT NOTED TO BE ON CONTACT ISOLATION FOR C-DIFF. CALL LIGHT AND H2O IN PT REACH. PT ENCOURAGED TO COMPLETE DOSAGE OF GOLYTELY. BED IN LOW POSITION. SIDE RAILS UP X2.
[2016-06-08 20:01] VITALS: BP 126/54
--- NOTE | 2016-06-08 22:30 | NUR ---
PT REFUSES TO COMPLETE GOLYTELY, JUG OF GOLYTELY NOTED TO STILL BE 3/4 FULL. PT STATES, "I HAVEN'T ATE MUCH IN THE PAST THREE MONTHS, I THINK I WILL BE FINE." EXPLAINED IMPORTANCE OF FINISHING ORDERED DOSE OF MEDICATION FOR BOWEL PREP FOR COLONOSCOPY IN AM. PT STATES VERBALIZED UNDERSTANDING, BUT CONTINUES TO REFUSE GOLYTELY. PT STATES, "I DON'T WANT TO DRINK IT. I DON'T EVEN WANT THE COLONOSCOPY DONE. IF THEY CAN'T DO IT TOMORROW, THAT IS FINE." NOTIFIED DR. COUGHLIN, NEW ORDERS RECEIVED FOR 1 BOTTLE OF MAG CITRATE AND 2 DULCOLOX TABS 5MG PO NOW AND 2 TAP WATER ENEMAS IN @ 0800 IN AM. PT NOTIFIED OF NEW ORDERS PER DR. COUGHLIN AND PT AGREED WITH ORDERS.
[2016-06-09] VITALS: BP 137/61
--- NOTE | 2016-06-09 | NUR ---
ASSISTED PT TO USE BEDPAN. NO VOID OR BM. PULLED PT UP IN BED AND TURNED. NO OTHER NEEDS. ENTERIC ISOLATION PRECAUTIONS OBSERVED. CONTINUE MANAGER ADULT'S PLAN OF CARE.
[2016-06-09 04:00] VITALS: BP 138/48
--- NOTE | 2016-06-09 05:39 | NUR ---
WHILE OBTAINING BLOOD FROM LINE, THIS ROLLER COASTER ENGINEER USED BLOOD FROM [place]ASTE [place]ING[place] IN ERROR TO CHECK BLOOD GLUCOSE X2 WITH READING OF 69 AND 70. THIS ROLLER COASTER ENGINEER THEN CHECKED BLOOD GLUCOSE WITH FINGERSTICK WITH READING OF 71.
[2016-06-09 06:21] LABS: BASOPHILS 0.1 % (0.0-2.0); EOSINOPHILS 0.7 % (0-7); HEMATOCRIT 29.5 % (36.0-48.0); HEMOGLOBIN 9.8 g/dL (12-16); IMMATURE GRANULOCYTES 0.4 % (0-5); LYMPHOCYTES 12.5 % (15-50); MCH 28.1 pg (26.0-34.0); MCHC 33.2 g/dL (31.0-37.0); MCV 84.5 fL (80.0-100.0); MEAN PLATELET VOLUME 9.9 fL (7.4-10.4); MONOCYTES 6.1 % (2-11); NEUTROPHILS 80.2 % (40-80); RBC 3.49 10x6/uL (4.00-5.40); RDW 18.9 % (11.5-14.5)
[2016-06-09 06:27] LABS: PLATELET COUNT 203 10x3/uL (130-400); WBC 6.7 10x3/uL (4.8-10.8)
[2016-06-09 06:42] LABS: ALBUMIN 1.6 g/dL (3.4-5.0); ALKALINE PHOSPHATASE 124 U/L (46-116); ALT (SGPT) 45 U/L (10-68); BILIRUBIN - TOTAL 0.39 mg/dL (0.2-1.3); CALC OSMOLALITY 279 mosm/kg (275-300); CALCIUM 8.8 mg/dL (8.5-10.1); CARBON DIOXIDE 23.4 mmol/L (21.0-32.0); CHLORIDE - SERUM 108 mmol/L (98-107); CREATININE - SERUM 0.5 mg/dL (0.6-1.3); PROTEIN - SERUM 4.8 g/dL (6.4-8.2); SODIUM 141 mmol/L (136-145); UREA NITROGEN 15 mg/dL (7-18); eGFR NON AFRICAN AMERICAN > 90 mL/min (90-120)
[2016-06-09 06:43] LABS: GLUCOSE 65 mg/dL (74-106)
--- NOTE | 2016-06-09 07:45 | NUR ---
ASSESSMENT PER FLOW SHEET.PT WITHOUT DISTRESS.CALL LIGHT IN REACH
[2016-06-09 07:57] VITALS: BP 150/61
--- NOTE | 2016-06-09 10:15 | NUR ---
CONSENTS TO CHART.
[2016-06-09 13:07] VITALS: BP 144/64
--- NOTE | 2016-06-09 13:40 | NUR ---
BACK FROM GI LAB.PT WITHOUT DISTRESS.CALL LIGHT IN REACH
--- NOTE | 2016-06-09 19:00 | NUR ---
PATIENT SUPINE IN BED. HOB 30 DEGREES. RR EVEN AND UNLABORED. 0 S/S OF DISTRESS. STATES PAIN IS A 7/10 IN ABDOMEN. RIGHT PICC PATENT WITH DRESSING CDI. LINENS AND GOWN CHANGED DUE TO INCONTINENT EPISODE OF BLADDER. B/A ON. SRX2. BED LOW. CALL LIGHT WITHIN REACH.
[2016-06-09 20:00] VITALS: BP 146/86
--- NOTE | 2016-06-09 22:45 | NUR ---
NIGHTTIME MEDS GIVEN. PATIENT'S MORPHINE HAD FALLEN OFF. SPOKE WITH DR. SOOD AND HAD ORDER RENEWED. MORPHINE GIVEN. WILL REASSESS.
[2016-06-10] VITALS (21 sets, daily range): BP systolic 106–165; BP diastolic 49–87
[2016-06-10 04:56] LABS: BASOPHILS 0 % (0-2); EOSINOPHILS 0.2 % (0-7); HEMATOCRIT 25.4 % (36.0-48.0); HEMOGLOBIN 8.2 g/dL (12-16); IMMATURE GRANULOCYTES 0.3 % (0-5); LYMPHOCYTES 4.8 % (15-50); MCH 27.8 pg (26.0-34.0); MCHC 32.3 g/dL (31.0-37.0); MCV 86.1 fL (80.0-100.0); MEAN PLATELET VOLUME 10.2 fL (7.4-10.4); NEUTROPHILS 93.7 % (40-80); PLATELET COUNT 224 10x3/uL (130-400); RBC 2.95 10x6/uL (4.00-5.40); RDW 18.9 % (11.5-14.5); WBC 6.2 10x3/uL (4.8-10.8)
[2016-06-10 05:31] LABS: ALBUMIN 1.6 g/dL (3.4-5.0); ALKALINE PHOSPHATASE 113 U/L (46-116); ALT (SGPT) 42 U/L (10-68); CALC OSMOLALITY 272 mosm/kg (275-300); CARBON DIOXIDE 20.4 mmol/L (21.0-32.0); CHLORIDE - SERUM 103 mmol/L (98-107); CREATININE - SERUM 0.6 mg/dL (0.6-1.3); POTASSIUM - SERUM 3.8 mmol/L (3.5-5.1); PROTEIN - SERUM 5.1 g/dL (6.4-8.2); SODIUM 136 mmol/L (136-145); UREA NITROGEN 15 mg/dL (7-18); eGFR NON AFRICAN AMERICAN > 90 mL/min (90-120)
[2016-06-10 05:35] LABS: GLUCOSE 104 mg/dL (74-106)
--- NOTE | 2016-06-10 10:08 | OP ---
PATIENT NAME: FOSTER DUQUE MEDICAL RECORD: [id number] :42 LOCATION:D.MS [facility] ADMISSION DATE:05/14/16 SURGEON: LENIN TATUM DO DATE OF OPERATION: 06/09/2016 PROCEDURE: Colonoscopy with biopsies and stool collection. SCOPE: Olympus video pediatric colonoscope. MEDICATIONS: Propofol 300 mg IV per anesthesia. INDICATIONS: Ongoing diarrhea, past C. difficile toxin positive, blood in stool. FINDINGS: Informed consent was given. The patient was made comfortable with the above medication. After reaching an adequate level of sedation by slow IV push, the patient was placed on her left side. A digital rectal examination was performed that was within normal. The endoscope was then advanced through the rectum under direct visualization to approximately the hepatic flexure. On this examination, as previous, there were multiple sites of deep ulcerations. There was also evidence of cobblestoning. These features are consistent with Crohn disease. Multiple biopsies were taken of different sites to try to establish the diagnosis. There was also stool collected during this examination to submit for further infectious studies. There was some bleeding of these ulcerated sites during passage of the endoscope. After reaching approximately the hepatic flexure, the scope was not advanced any further for safety reasons. Scope was withdrawn from the patient. The patient tolerated the procedure well and there were no complications. IMPRESSION: Deep ulcerations of the colon along with cobblestoning. These features are suggestive of inflammatory bowel disease, specifically Crohn's, PLAN AND RECOMMENDATIONS: I have initiated IV steroids, Solu-Medrol 20 mg IV q. 8 at this time. We will continue to monitor the patient for changes in her symptoms. If she improves, we will start her on long-term therapy immunosuppressant medications for inflammatory bowel disease. If she fails to improve, further workup will be undertaken. If an infectious etiology is uncovered, that will be treated as indicated. TRANSINT:[id number] Voice Confirmation ID: [id number] DOCUMENT ID: [id number] LENIN TATUM DO at 1008 CC: [id number] DICTATION DATE: 06/09/16 1431 CINDER DUMP CRANE OPERATOR: 06/09/162016 ADM IN [id number] [place] [address]
--- NOTE | 2016-06-10 15:07 | NUR ---
PATIENT RESTING IN BED. AT PATIENT'S BEDSIDE. FIRST UNIT OF PRBC'S STARTED. DONOR UNIT NUMBER IS [id number]. EXPIRES 07/11/16. VSS. TEMP 97.7 CALL LIGHT IN PATIENT'S REACH. WILL MONITOR PATIENT.
--- NOTE | 2016-06-10 15:29 | NUR ---
1ST UNIT OF PRBC'S STARTED TO R UPPER PICC LINE. VSS. PRN MORPHINE ADMINISTERED PER PT C/O BELLY PAIN. WILL REASSESS. BED LOW, CALL LIGHT IN REACH, DENIES NEEDS. CPOC.
--- NOTE | 2016-06-10 19:02 | NUR ---
2ND UNIT OF PRBC'S STARTED. VSS. BED LOW, CALL LIGHT IN REACH, DENIES NEEDS. CPOC.
--- NOTE | 2016-06-10 19:25 | NUR ---
LINDA CARE PROVIDED FOR INCONTINENT EPISODE OF STOOL AND URINE AT THIS TIME. BOUDREAX'S APPLIED TO PT'S BOTTOM DUE TO EXCORIATION. PT REPOSITIONED TO RIGHT SIDE WITH PILLOW BEHIND BACK. DENIES FURTHER NEEDS AT THIS TIME. WILL CONTINUE WITH PLAN OF CARE.
--- NOTE | 2016-06-10 20:47 | NUR ---
SCHEDULED MEDICATIONS ADMINISTERED AT THIS TIME WELL PRN MORPHINE PER ORDER. ASSESSMENT PERFORMED PER FLOWSHEET. BLOOD INFUSING AT 125 ML/HR AND VITAL SIGNS REMAIN STABLE. BED ALARM ON. SCD'S OFF PER PT. SRX2 WITH BED IN LOWEST POSITION AND WHEELS LOCKED. RIGHT UPPER ARM PICC LINE PATENT. DENIES FURTHER NEEDS AT PRESENT TIME. HAL'S APPLIED TO PT'S BUTTOCK FOR EXCORIATION. CALL LIGHT IN REACH, WILL CONTINUE WITH PLAN OF CARE.
--- NOTE | 2016-06-10 21:17 | NUR ---
BLOOD TRANSFUSION COMPLETE AT THIS TIME. IV SET TO FLUSH AT THIS TIME. VITAL SIGNS REMAIN STABLE. CALL LIGHT IN REACH, WILL CONTINUE WITH PLAN OF CARE.
[2016-06-11 04:00] VITALS: BP 135/64
[2016-06-11 04:51] LABS: BASOPHILS 0.2 % (0-2); EOSINOPHILS 0 % (0-7); HEMATOCRIT 28.5 % (36.0-48.0); HEMOGLOBIN 9.4 g/dL (12-16); IMMATURE GRANULOCYTES 0.3 % (0-5); LYMPHOCYTES 6.1 % (15-50); MCV 84.8 fL (80.0-100.0); MEAN PLATELET VOLUME 10.1 fL (7.4-10.4); MONOCYTES 7.1 % (2-11); NEUTROPHILS 86.3 % (40-80); PLATELET COUNT 180 10x3/uL (130-400); RBC 3.36 10x6/uL (4.00-5.40); RDW 17.1 % (11.5-14.5); WBC 5.8 10x3/uL (4.8-10.8)
[2016-06-11 05:04] LABS: ALBUMIN 1.5 g/dL (3.4-5.0); ALKALINE PHOSPHATASE 109 U/L (46-116); ALT (SGPT) 43 U/L (10-68); BILIRUBIN - TOTAL 0.39 mg/dL (0.2-1.3); CALCIUM 8.8 mg/dL (8.5-10.1); CARBON DIOXIDE 23.5 mmol/L (21.0-32.0); CHLORIDE - SERUM 103 mmol/L (98-107); CREATININE - SERUM 0.6 mg/dL (0.6-1.3); POTASSIUM - SERUM 3.9 mmol/L (3.5-5.1); PROTEIN - SERUM 4.5 g/dL (6.4-8.2); SODIUM 134 mmol/L (136-145); eGFR NON AFRICAN AMERICAN > 90 mL/min (90-120)
[2016-06-11 05:12] LABS: CALC OSMOLALITY 277 mosm/kg (275-300); GLUCOSE 218 mg/dL (74-106); UREA NITROGEN 22 mg/dL (7-18)
[2016-06-11 09:45] VITALS: BP 158/81
[2016-06-11 13:40] VITALS: BP 144/77
[2016-06-11 16:55] VITALS: BP 121/55
--- NOTE | 2016-06-11 19:00 | NUR ---
PATIENT AWAKE, AND ALERT. LAYING IN BED. PATIENT DENIES NEEDS. PATIENT REMEMBERED MY NAME FROM THE LAST TIME I WAS HERE NURSE. PATIENT SMILING, THANKED ME FOR COMING TO SEE HER. PATIENT ON ROOM AIR. BED IN LOWEST POSITION, CALL LIGHT IN REACH. BED RAILS UP X'S 2. ENTERIC ISOLATION PRECAUTIONS MAINTAINED. BED ALARM ON.
--- NOTE | 2016-06-11 19:40 | NUR ---
RECIEVED SHIFT REPORT. PT IS LYING IN BED. ALERT AND ORIENTED AND ABLE TO VERBALIZE NEEDS. IV IS PATENT AND FLUIDS ARE RUNNING PER ORDER. SCD'S ON. PT REQUIRES MINIMAL ASSISTANCE TURNING IN BED FOR COMFORT AND SKIN CARE. PT STATES PAIN IS 5/10. ISOLATION PRECAUTIONS IN PLACE. NO NEEDS ARE VERBALIZED AT THIS TIME. WILL CONTINUE TO MONITOR. SIDE RAILS ARE UP X 2. BED IS IN LOWEST POSITION. CALL LIGHT IS WITHIN REACH.
[2016-06-11 20:00] VITALS: BP 122/59
--- NOTE | 2016-06-11 22:01 | NUR ---
SHIFT ASSESSMENT COMPLETED. NIGHT MEDS GIVEN WITH NO PROBLEMS. NO NEEDS ARE VOICED. WILL MONITOR. SIDE RAILS X 2. BED LOW. CALL LIGHT IN REACH.
[2016-06-12] VITALS: BP 124/68
[2016-06-12 04:00] VITALS: BP 124/60
--- NOTE | 2016-06-12 07:47 | NUR ---
PT SEEN AND ASSESSED. NO COMPLAINTS AT PRESENT. INCONT OF STOOL-VERY SOFT DARK COLORED ALMOST BLACK. REMAINS IN ISOLATION. TURNED AND CLEANED-NO BREAKDOWN NOTED ON BUTTOCK. DEPENDENT EDEMA NOTED TO BUTTOCK. TURNED AND POSITIONED ON LEFT SIDE. CALL LIGHT IN REACH. BED ALARM ON FOR SAFETY
[2016-06-12 08:31] VITALS: BP 140/56
[2016-06-12 11:39] VITALS: BP 122/64
--- NOTE | 2016-06-12 13:10 | CN ---
PATIENT NAME:FOSTER DUQUE MEDICAL RECORD: [id number] : 42 LOCATION:D.MS [facility] ADMIT DATE: 05/14/16 ACCOUNT: [id number] CONSULTING PHYSICIAN: MOLLY RODRIGUES MD REFERRING PHYSICIAN: KONG RAWLS MD DATE OF CONSULTATION: 05/25/2016 Otolaryngology Consultation HISTORY OF PRESENT ILLNESS: Ms. Duque is a 76-year-old female in ICU. Nurses state that she was brought to the ICU from the floor the previous day with respiratory problems, someone noted some stridor the previous day, although the nurse today ____ has been noted, but she initially had hypoxia and some signs of CHF and was given Lasix ____ her today. She is in the ICU. She is stable currently and on nasal cannula oxygen, oxygenating above 95%. PHYSICAL EXAMINATION: GENERAL: She is somewhat disoriented, but she is arousable and awake. She is conversant, had a perfectly normal voice. She is in no distress, has no stridor even on deep inspiration and expiration, cannot hear any stridor to auscultation, she does have some rales, maybe a little bit of wheezing, but no upper airway sounds. IMPRESSION: Respiratory distress the previous day, now doing well on nasal cannula. Stridor was noted yesterday, but looks like she had possibly some mild congestive heart failure and responded well to treatment. She is doing well now with no stridor. I can see her again if needed. TRANSINT:[id number] Voice Confirmation ID: [id number] DOCUMENT ID: [id number] MOLLY RODRIGUES MD at 1310 CC: [id number] DICTATION DATE: 05/26/16 1259 CUSTODIAL OPERATIONS MANAGER: 05/26/16 2124 ADM IN [facility] [address] [place] [address]
[2016-06-12 14:16] LABS: ANCA - ANTIMYELOPEROXIDASE <9.0 U/mL (0.0-9.0); ANCA - ANTIPROTEINASE 3 <3.5 U/mL (0.0-3.5); ANCA - ATYPICAL <1:20 titer (Neg:<1:20); ANCA - CYTOPLASMIC <1:20 titer (Neg:<1:20); ANCA - PERINUCLEAR <1:20 titer (Neg:<1:20)
--- NOTE | 2016-06-12 14:52 | NUR ---
OT NOTE: UE AROM EXS; BED MOB TRAINING; SIT TO STAND WITH MOD ASSIST; PT REMAINS WITH POOR APPETITE AND CONSUMING ONLY MINIMAL AMOUNT ON TRAY
[2016-06-12 15:25] VITALS: BP 118/60
--- NOTE | 2016-06-12 17:49 | NUR ---
OT NOTE: PT COMPLETED BUE STRENGTHENING EXS WITH YELLOW THERABAND. PT COMPLETED BED MOB WITH MIN A. PT COMPLETED GROOMING TASK WITH SET UP. THANK YOU, PAMELA OTTO
--- NOTE | 2016-06-12 19:30 | NUR ---
RECIEVED SHIFT REPORT. PT IS LYING IN BED. ALERT AND ORIENTED AND ABLE TO VERBALIZE NEEDS. IV IS PATENT AND FLUIDS ARE RUNNING PER ORDER. SCD'S ON. PT REQUIRES MINIMAL ASSISTANCE TURNING IN BED FOR COMFORT AND SKIN CARE. PT STATES PAIN IS 5/10. NO NEEDS ARE VERBALIZED AT THIS TIME. WILL CONTINUE TO MONITOR. SIDE RAILS ARE UP X 2. BED IS IN LOWEST POSITION. BED ALARM IS ON FOR SAFETY. CALL LIGHT IS WITHIN REACH.
[2016-06-12 20:26] VITALS: BP 143/67
--- NOTE | 2016-06-12 21:47 | NUR ---
SHIFT ASSESSMENT COMPLETED. NIGHT MEDS GIVEN WITH NO PROBLEMS. PT C/O PAIN 05/29. ADMINISTERED PRESCRIBED PRN MORPHINE PER ORDER. NO FURTHER NEEDS AT THIS TIME. WILL MONITOR. SIDE RAILS X 2. BED LOW. BED ALARM ON. CALL LIGHT IN REACH.
[2016-06-13] VITALS (7 sets, daily range): BP systolic 122–153; BP diastolic 62–85
[2016-06-13 06:01] LABS: BASOPHILS 0 % (0-2); EOSINOPHILS 0 % (0-7); HEMATOCRIT 23.2 % (36.0-48.0); IMMATURE GRANULOCYTES 0.5 % (0-5); LYMPHOCYTES 10.7 % (15-50); MCH 27.7 pg (26.0-34.0); MCHC 32.3 g/dL (31.0-37.0); MCV 85.6 fL (80.0-100.0); MEAN PLATELET VOLUME 9.8 fL (7.4-10.4); MONOCYTES 11.4 % (2-11); NEUTROPHILS 77.4 % (40-80); PLATELET COUNT 195 10x3/uL (130-400); RBC 2.71 10x6/uL (4.00-5.40); RDW 16.7 % (11.5-14.5); WBC 7.8 10x3/uL (4.8-10.8)
[2016-06-13 06:47] LABS: ALBUMIN 1.6 g/dL (3.4-5.0); ALKALINE PHOSPHATASE 125 U/L (46-116); ALT (SGPT) 80 U/L (10-68); CALC OSMOLALITY 277 mosm/kg (275-300); CALCIUM 8.8 mg/dL (8.5-10.1); CARBON DIOXIDE 22.8 mmol/L (21.0-32.0); CHLORIDE - SERUM 103 mmol/L (98-107); CREATININE - SERUM 0.6 mg/dL (0.6-1.3); POTASSIUM - SERUM 3.8 mmol/L (3.5-5.1); PROTEIN - SERUM 4.7 g/dL (6.4-8.2); SODIUM 136 mmol/L (136-145); UREA NITROGEN 23 mg/dL (7-18); eGFR NON AFRICAN AMERICAN > 90 mL/min (90-120)
[2016-06-13 06:48] LABS: GLUCOSE 129 mg/dL (74-106)
[2016-06-13 06:52] LABS: HEMOGLOBIN 7.5 g/dL (12-16)
--- NOTE | 2016-06-13 08:15 | NUR ---
PT RESTING IN BED WITH EYES OPEN CALL LIGHT IN REACH WILL MONITER
--- NOTE | 2016-06-13 12:15 | NUR ---
PT RESTING IN BED WITH EYES OPEN CALL LIGHT IN REACH NO PROBLEMS WILL MONITER
--- NOTE | 2016-06-13 14:06 | NUR ---
RESTING QUIETLY IN BED WITH EYES CLOSED. DENIES NEEDS. TRANSFUSION IN PROGRESS AT THIS TIME. AT BEDSIDE.
--- NOTE | 2016-06-13 15:15 | NUR ---
NUTRITION MONITORING & EVAL CHART REVIEWED. PT VISIT. SPOUSE AT BEDSIDE, REPORTS PT PO INTAKE "OK". PT IS DRINKING 100% GLUCERNA SHAKES. REMAINS IN ISOLATION. RD FOLLOWING
--- NOTE | 2016-06-13 16:50 | NUR ---
OT NOTE: PT COMPLETED BED MOB WITH MOD A. THANK YOU, ANGEL OTTO/Kvng
--- NOTE | 2016-06-13 19:40 | NUR ---
RECIEVED SHIFT REPORT. PT IS LYING IN BED. ALERT AND ORIENTED AND ABLE TO VERBALIZE NEEDS. IV IS PATENT AND FLUIDS ARE RUNNING PER ORDER. PT REQUIRES ASSISTANCE TURNING IN BED FOR COMFORT AND SKIN CARE. SCD'S ON. PT STATES PAIN IS 4/10. ISOLATION PRECAUTIONS IN PLACE. NO NEEDS ARE VERBALIZED AT THIS TIME. WILL CONTINUE TO MONITOR. SIDE RAILS ARE UP X 2. BED IS IN LOWEST POSITION. CALL LIGHT IS WITHIN REACH.
--- NOTE | 2016-06-13 21:16 | NUR ---
SHIFT ASSESSMENT COMPLETED. NIGHT MEDS GIVEN WITH NO PROBLEMS. PT C/O PAIN 07/29. ADMINISTERED PRESCRIBED PRN MORPHINE PER ORDER. DENIES FURTHER NEEDS. WILL MONITOR. SIDE RAILS X 2. BED LOW. BED ALARM ON. CALL LIGHT IN REACH.
[2016-06-14 04:00] VITALS: BP 138/67
[2016-06-14 05:56] LABS: BASOPHILS 0 % (0-2); EOSINOPHILS 0.1 % (0-7); HEMATOCRIT 25.6 % (36.0-48.0); HEMOGLOBIN 8.6 g/dL (12-16); LYMPHOCYTES 13.5 % (15-50); MCH 28.1 pg (26.0-34.0); MCHC 33.6 g/dL (31.0-37.0); MCV 83.7 fL (80.0-100.0); MONOCYTES 9.2 % (2-11); NEUTROPHILS 76.2 % (40-80); PLATELET COUNT 181 10x3/uL (130-400); RBC 3.06 10x6/uL (4.00-5.40); RDW 15.6 % (11.5-14.5); WBC 13.6 10x3/uL (4.8-10.8)
[2016-06-14 06:11] LABS: ALBUMIN 1.4 g/dL (3.4-5.0); ANION GAP 12.3 mmol/L (8-16); BILIRUBIN - TOTAL 0.27 mg/dL (0.2-1.3); CALCIUM 8.3 mg/dL (8.5-10.1); CARBON DIOXIDE 23.7 mmol/L (21.0-32.0); PROTEIN - SERUM 3.9 g/dL (6.4-8.2)
[2016-06-14 06:12] LABS: CREATININE - SERUM 0.8 mg/dL (0.6-1.3)
[2016-06-14 08:01] VITALS: BP 134/68
--- NOTE | 2016-06-14 11:31 | NUR ---
picc line dressing changed with stat lock changed per nursing technician.
[2016-06-14 11:41] VITALS: BP 130/64
[2016-06-14 16:52] VITALS: BP 128/68
--- NOTE | 2016-06-14 18:29 | NUR ---
PT HAS BEEN UP IN CHAIR AT BEDSIDE FOR APPROX 3 HOURS TODAY PER PT. HAS HAD 3 INCONT STOOLS THAT ARE BLACK, STICKY AND SOFT. NO BLOOD PRODUCTS GIVEN TODAY. HAS BED ALARM ON FOR SAFETY. SCDS ON BILAT. CALL LIGHT IN REACH
[2016-06-14 20:00] VITALS: BP 140/68
--- NOTE | 2016-06-14 21:21 | NUR ---
AAWKE,ALERT.NO COMPLAINTS VOICED. IV INFUSING TO [facility] PICC WIHTOUT REDNESS OR EDEMA NOTED.CL IN REACH.
--- NOTE | 2016-06-15 03:10 | NUR ---
ASSISTED PT OFF OF BEDPAN, NO DISTRESS NOTED, DENIES OTHER NEEDS AT THIS TIME, FALL PRECAUTIONS IN PLACE, CL IN REACH
[2016-06-15 05:32] LABS: BASOPHILS 0.1 % (0-2); EOSINOPHILS 0.1 % (0-7); HEMATOCRIT 23.3 % (36.0-48.0); HEMOGLOBIN 7.7 g/dL (12-16); IMMATURE GRANULOCYTES 0.5 % (0-5); LYMPHOCYTES 11.6 % (15-50); MCV 84.7 fL (80.0-100.0); MONOCYTES 7.3 % (2-11); NEUTROPHILS 80.4 % (40-80); PLATELET COUNT 194 10x3/uL (130-400); RBC 2.75 10x6/uL (4.00-5.40); RDW 16.1 % (11.5-14.5); WBC 14.4 10x3/uL (4.8-10.8)
[2016-06-15 06:18] LABS: ALBUMIN 1.5 g/dL (3.4-5.0); ANION GAP 13.4 mmol/L (8-16); BILIRUBIN - TOTAL 0.23 mg/dL (0.2-1.3); CALCIUM 8.9 mg/dL (8.5-10.1); CARBON DIOXIDE 21.7 mmol/L (21.0-32.0); POTASSIUM - SERUM 4.1 mmol/L (3.5-5.1); PROTEIN - SERUM 4.4 g/dL (6.4-8.2)
[2016-06-15 08:21] VITALS: BP 142/68
--- NOTE | 2016-06-15 08:48 | NUR ---
PT ASSESSMENT COMPLETE AWAKE AND ALERT ORIENTED X 3 LUNGS CLEAR BIALTERAL BSA X [address] RAWLS HERE EARLIER PT TO HAVE BLOOD TRANSFUSION TODAY PER ORDER. REMAINS IN CONTACT ISOLATION FOR C DIFF NO ACTIVE LOOSE STOOLS NOTED.
--- NOTE | 2016-06-15 09:55 | NUR ---
PATIENT AWAKE AND ALERT. NO SIGNS OF DISTRESS NOTED. PATIENT DENIES NEEDS. BED IN LOWEST POSITION, CALL LIGHT IN REACH. BED RAILS UP X'S 2.
--- NOTE | 2016-06-15 11:03 | NUR ---
PT WITH NO ACUTE DISTRESS NOTED CALL LIGHT INREACH SIDE RAILS UP X 2
[2016-06-15 11:37] VITALS: BP 132/70
--- NOTE | 2016-06-15 12:53 | NUR ---
PT SITTING UP IN CHAIR AT BEDSIDE EATING LUNCH MEAL PT SPOUSE AT BEDSIDE. CALL LIGHT IN REACH
--- NOTE | 2016-06-15 16:52 | NUR ---
PT RECIEVING BLOOD TRANSFUSION 1 OF 2 UNITS AT THIS TIME. SPOUSE AT BEDSIDE.
--- NOTE | 2016-06-15 20:10 | NUR ---
PATIENT RECIEVING 2ND UNIT PRBC. AWAKE,ALERT NO COMPLAINTS VOICED. NO REACTIONS NOTED. PICC LINE INTACT TO RIGHT UPPER ARM WIHTOUT REDNESS OR EDEMA NOTED. CL IN REACH.
[2016-06-16] VITALS: BP 162/70
--- NOTE | 2016-06-16 00:28 | NUR ---
ENTERIC ISOLATION FOR C-DIFF. PT ASKING FOR PAIN MEDICINE. PT WAS GIVEN PAIN MED AT 2230. PRAWN TRAWLER HAND GOING IN TO CHECK ON PT NOW. NO OTHER NEEDS. WILL CONTINUE TO MONITOR.
[2016-06-16 04:00] VITALS: BP 106/78
[2016-06-16 06:15] LABS: BASOPHILS 0.1 % (0-2); EOSINOPHILS 0.1 % (0-7); IMMATURE GRANULOCYTES 0.6 % (0-5); LYMPHOCYTES 7.6 % (15-50); MCH 29.2 pg (26.0-34.0); MCHC 35.1 g/dL (31.0-37.0); MCV 83.2 fL (80.0-100.0); MEAN PLATELET VOLUME 10.2 fL (7.4-10.4); MONOCYTES 5.3 % (2-11); NEUTROPHILS 86.3 % (40-80); PLATELET COUNT 188 10x3/uL (130-400); RDW 15.1 % (11.5-14.5); WBC 12.9 10x3/uL (4.8-10.8)
--- NOTE | 2016-06-16 06:15 | NUR ---
AROUSES EASILY TO VERBAL STIMULI. NO DISTRESS NOTED. NO CHANGE IN ASSESMENT.
[2016-06-16 06:22] LABS: HEMATOCRIT 33.6 % (36.0-48.0); HEMOGLOBIN 11.8 g/dL (12-16); RBC 4.04 10x6/uL (4.00-5.40)
[2016-06-16 06:29] LABS: ALBUMIN 1.5 g/dL (3.4-5.0); ANION GAP 11.2 mmol/L (8-16); BILIRUBIN - TOTAL 0.52 mg/dL (0.2-1.3); CALCIUM 8.7 mg/dL (8.5-10.1); CARBON DIOXIDE 23.3 mmol/L (21.0-32.0); CREATININE - SERUM 0.9 mg/dL (0.6-1.3); POTASSIUM - SERUM 3.5 mmol/L (3.5-5.1); PROTEIN - SERUM 4.5 g/dL (6.4-8.2)
--- NOTE | 2016-06-16 08:55 | NUR ---
PT ASSESSMENT COMPLETE AWAKE AND ALERT ORINETD X 3 THIS AM PT NOTED TO HAVE SIGNIFICANT EDEMA TO BLE FROM HIP TO TOES BILATERAL BSA X 4 QUADS ABDOMEN SOFT AND TENDER TO PALPATION. CALL LIGHT IN REACH SIDE RAILS UP X 2
[2016-06-16 10:09] VITALS: BP 158/70
--- NOTE | 2016-06-16 11:12 | NUR ---
pt seen and assessed. states bms have slowed down during the night. still with sticky black stools. removed from isolation per verena boles infection control nurse. spouse at bedside
[2016-06-16 11:47] VITALS: BP 160/70
--- NOTE | 2016-06-16 13:56 | NUR ---
PT SITTING UP IN CHAIR AT BEDSIDE. CALL LIGHT IN REACH REPOSITIONED IN CHAIR FOR COMFORT. FSBS EARLIER WAS 141 REQUIRED NO COVERAGE SPOUSE REMAINS AT BEDSIDE.
--- NOTE | 2016-06-16 14:55 | NUR ---
REPORT RECEIVED FROM KADI SCALES.
--- NOTE | 2016-06-16 15:29 | NUR ---
OT NOTE: BUE AROM EXS FOR INCREASED I WITH ADLS. PT COMPLETED CHAIR TO BED TRANSFER WITH AKOSUA Zhao. PT COMPLETED BED MOB WITH AKOSUA Zhao. THANK YOU, PAMELA OTTO
--- NOTE | 2016-06-16 15:29 | NUR ---
Patient Name: FOSTER DUQUE Encounter No: [id number] : 1940 Primary Insurance: [id number] Anticipated DC Date: 05-17-2016 Planned Disposition: Home External Planned Provider: : DCP follow-up note: Patient and family in agreement with discharge plan. No changes to plan. Case management will follow and assist as needed. Di Ivan
--- NOTE | 2016-06-16 16:25 | NUR ---
NORCO AND CARAFATE PO. PLACED ON BEDPAN.
[2016-06-16 16:38] VITALS: BP 139/63
--- NOTE | 2016-06-16 17:48 | NUR ---
FSBS 186 SO 4 UNITS REGULAR INSULIN SUBQ TO LEFT ARM. CALL LIGHT IN REACH.
--- NOTE | 2016-06-16 18:20 | NUR ---
NO CHANGES IN INITIAL ASSESSMENT. CALL LIGHT IN REACH. WILL CONTINUE WITH PLAN OF CARE.
[2016-06-16 19:00] VITALS: BP 127/71
[2016-06-17] VITALS (12 sets, daily range): BP systolic 123–174; BP diastolic 54–83
--- NOTE | 2016-06-17 01:11 | NUR ---
PT IS EASY TO AROUSE BUT IS RESTING QUIET. NO NEEDS VOICED. HOB IS ELEVATED AND SHE HAS EASY RESPIRATIONS. THE BED IS LOW, RAILS UP X'S 2 WITH THE CALL LIGHT AT HAND.
[2016-06-17 07:04] LABS: BASOPHILS 0.1 % (0-2); EOSINOPHILS 0.1 % (0-7); HEMOGLOBIN 11.9 g/dL (12-16); IMMATURE GRANULOCYTES 0.4 % (0-5); LYMPHOCYTES 6.5 % (15-50); MCH 28.9 pg (26.0-34.0); MCV 82.5 fL (80.0-100.0); MEAN PLATELET VOLUME 9.8 fL (7.4-10.4); NEUTROPHILS 85.9 % (40-80); PLATELET COUNT 212 10x3/uL (130-400); RBC 4.12 10x6/uL (4.00-5.40); RDW 15.2 % (11.5-14.5); WBC 12.8 10x3/uL (4.8-10.8)
[2016-06-17 07:55] LABS: ALBUMIN 1.5 g/dL (3.4-5.0); ANION GAP 11.9 mmol/L (8-16); BILIRUBIN - TOTAL 0.51 mg/dL (0.2-1.3); CALCIUM 8.9 mg/dL (8.5-10.1); CARBON DIOXIDE 22.7 mmol/L (21.0-32.0); POTASSIUM - SERUM 3.6 mmol/L (3.5-5.1); PROTEIN - SERUM 4.8 g/dL (6.4-8.2)
--- NOTE | 2016-06-17 10:25 | NUR ---
PATIENT UP AT BEDSIDE. NO SIGNS OF DISTRESS NOTED. PRIMARY NURSE KADI OSPINA AND AT BEDSIDE. CALL LIGHT IN REACH.
--- NOTE | 2016-06-17 15:55 | NUR ---
REMICADE INITIATED PER ORDER. ORDER VERIFIED WITH HAYLEE BLACK RN. INFUSING TO RIGHT PICC WITHOUT DIFFICULTY. FLUSHES EASY WITH BRISK BLOOD RETURN PRESENT. VITAL SIGNS STABLE. AT BEDSIDE. SIDE RAILS UP X2. BED IN LOW POSITION. CALL LIGHT IN REACH.
--- NOTE | 2016-06-17 20:50 | NUR ---
PATIENT RESTING IN BED. ALERT AND ORIENTED. C/O 05/29 TO ABD. PRN NORCO GIVEN ORDERED. SCHEDULED MEDS GIVEN ORDERED. SHIFT ASSESSMENT COMPLETED. DENIES ANY OTHER NEEDS AT THIS TIME. BED LOW. CALL LIGHT IN REACH
--- NOTE | 2016-06-17 21:40 | NUR ---
PATIENT HAD INCONTINENT EPISODE. CHANGED PATIENT'S LINENS AND GOWN WITH YANN LAGUNAS. PATIENT'S BED IN LOWEST POSITION AND CALL LIGHT WITHIN REACH. ENCOURAGED THE PATIENT TO CALL IF SHE HAS FURTHER NEEDS.
[2016-06-18] VITALS (27 sets, daily range): BP systolic 95–136; BP diastolic 50–78
[2016-06-18 05:35] LABS: ANION GAP 15.4 mmol/L (8-16); CALCIUM 8.1 mg/dL (8.5-10.1); CARBON DIOXIDE 21.1 mmol/L (21.0-32.0); CREATININE - SERUM 1.5 mg/dL (0.6-1.3); POTASSIUM - SERUM 4.5 mmol/L (3.5-5.1)
[2016-06-18 05:42] LABS: BASOPHILS 0 % (0-2); EOSINOPHILS 0 % (0-7); HEMATOCRIT 21.9 % (36.0-48.0); IMMATURE GRANULOCYTES 0.4 % (0-5); LYMPHOCYTES 3.3 % (15-50); MCH 28.8 pg (26.0-34.0); MCHC 34.2 g/dL (31.0-37.0); MCV 84.2 fL (80.0-100.0); MEAN PLATELET VOLUME 10.2 fL (7.4-10.4); MONOCYTES 6.9 % (2-11); NEUTROPHILS 89.4 % (40-80); PLATELET COUNT 234 10x3/uL (130-400); RDW 15.1 % (11.5-14.5); WBC 20.5 10x3/uL (4.8-10.8)
[2016-06-18 05:45] LABS: HEMOGLOBIN 7.5 g/dL (12-16)
--- NOTE | 2016-06-18 05:55 | NUR ---
CRITICAL LAB RECEIVED. HGB 7.[address] SRINIVASAN NOTIFIED AND ORDERS RECEIVED TO TRANSFUSE 2 UNITS PRBC WITH 10MG LASIX IN BETWEEN. NO OTHER ORDERS RECEIVED AT THIS TIME.
--- NOTE | 2016-06-18 08:40 | NUR ---
PATIENT ALERT IN HIGH HORTA POSITION. PRBC INITIATED. VITAL SIGNS STABLE. PRIMARY NURSE KADI OSPINA AT BEDSIDE. SIDE RAILS UP X2. BED IN LOW POSITION. CALL LIGHT IN REACH.
--- NOTE | 2016-06-18 08:45 | NUR ---
FIRST UNIT OF BLOOD STARTED TO R UPPER PICC LINE. BYNUM CATHETER INSERTED USING STERILE TECHNIQUE. IMMEDIATE RETURN OF 1900CC'S OF CLEAR YELLOW URINE. MORNING MEDS PASSED. VSS AND IMPROVING WITH BLOOD TRANSFUSION. ASSISTED PT ONTO BED JUSTICE. ONE SMALL LIQUID BLACK STOOL. CLEANED AND TURNED TO BACK. BED LOW, CALL LIGHT IN REACH, DENIES NEEDS. WILL TRANSFER TO ICU SHORTLY.
--- NOTE | 2016-06-18 10:50 | NUR ---
REPORT CALLED TO CESAR JACOBSON, IN ICU. AWAITING BLOOD TO FINISH AND THEN WILL TRANSFER.
--- NOTE | 2016-06-18 10:51 | NUR ---
RECIEVED REPORT ON PT FROM [facility], WAITING TO RECIEVE PT TO UNIT.
--- NOTE | 2016-06-18 11:45 | NUR ---
AT BEDSIDE. UPDATE PROVIDED. AWAITING BLOOD TO FLUSH THROUGH AND WILL TRANSFER.
[2016-06-18 11:46] LABS: HEMOGLOBIN 9.7 g/dL (12-16); MCHC 33.4 g/dL (31.0-37.0); MCV 86.6 fL (80.0-100.0); MEAN PLATELET VOLUME 10.6 fL (7.4-10.4); PLATELET COUNT 141 10x3/uL (130-400); RBC 3.35 10x6/uL (4.00-5.40); RDW 14.5 % (11.5-14.5); WBC 25.6 10x3/uL (4.8-10.8)
[2016-06-18 11:51] LABS: INR 1.47 (0.85-1.17); PROTIME 17.8 SECONDS (11.6-15.0)
[2016-06-18 12:04] LABS: LYMPHOCYTES 3 % (15-50); MONOCYTES 3 % (2-11); NEUTROPHILS 87 % (40-80); PLATELET ESTIMATE NORMAL
[2016-06-18 12:05] LABS: ALBUMIN 1.4 g/dL (3.4-5.0); ANION GAP 16.2 mmol/L (8-16); BILIRUBIN - TOTAL 0.58 mg/dL (0.2-1.3); CALCIUM 8.3 mg/dL (8.5-10.1); CARBON DIOXIDE 19.9 mmol/L (21.0-32.0); CREATININE - SERUM 1.5 mg/dL (0.6-1.3); PLATELET MORPHOLOGY PLT CLUMPS PRESENT; POTASSIUM - SERUM 4.1 mmol/L (3.5-5.1); PRE-ALBUMIN 15.7 mg/dL (18.0-35.7)
--- NOTE | 2016-06-18 12:12 | NUR ---
RECIEVED PT AT THIS TIME VIA BED ACCOMPANIED BY HOSPITAL STAFF AND . NO ACUTE DISTRESS NOTED. PT ALERT AND ORIENTED. WILL CONTINUE PLAN OF CARE.
--- NOTE | 2016-06-18 12:36 | NUR ---
PT TRANSFERRED TO ICU VIA BED.
--- NOTE | 2016-06-18 14:28 | NUR ---
UP IN BED AT THIS TIME RECIEVING SECOND UNIT OF BLOOD AT THIS TIME, RECIEVED FIRST UNIT BEFORE ARRIVING TO UNIT. NO ACUTE DISTRESS NOTED. WILL CONTINUE PLAN OF CARE.
--- NOTE | 2016-06-18 14:55 | NUR ---
CONTINENT BOWEL MOVEMENT NOTED X 1. BLACK LOOSE STOOLS. SPECIMEN SENT TO LAB ORDERED. PT CLEANED UP VIA TOTAL ASSIST X 2 PERSON. DENIES ANY NEEDS. WILL CONTINUE PLAN OF CARE.
--- NOTE | 2016-06-18 15:55 | NUR ---
RESTING IN BED AT THIS TIME. NO ACUTE DISTERSS NOTED. PT ALERT AND ORIENTED. RESPIRATIONS AT STEADY AND UNLABORED RATE. USES CALL LIGHT FOR NEEDS. WILL CONTINUE PLAN OF CARE.
[2016-06-18 17:28] LABS: APPEARANCE CLEAR (CLEAR); BILIRUBIN NEGATIVE (NEGATIVE); COLOR YELLOW (YELLOW); GLUCOSE NEGATIVE (NEGATIVE); KETONE NEGATIVE (NEGATIVE); LEUKOCYTE ESTERASE NEGATIVE (NEGATIVE); NITRITE NEGATIVE (NEGATIVE); PROTEIN NEGATIVE (NEGATIVE); UROBILINOGEN NORMAL (NORMAL)
[2016-06-18 17:30] LABS: BACTERIA FEW /hpf (NONE SEEN); EPITHELIAL CELLS 0-5 /hpf (0-5); RED CELLS - URINE 0-5 /hpf (0-5); WHITE CELLS - URINE 0-5 /hpf (0-5)
[2016-06-18 18:45] LABS: HEMATOCRIT 31.9 % (36.0-48.0)
--- NOTE | 2016-06-18 19:39 | NUR ---
REPORT RECEIVED. SHIFT ASSESSMENT COMPLETE. SEE FLOWSHEET FOR FINDINGS. PT HAS SOILED HERSELF. LOOSE, DARK, ODOROUS STOOL. NO CHARY BLEEDING NOTED. PT IS ALERT AND CONVERSANT. ON 2L NC. IV OF 1/2NS RUNNING AT 50ML/HR TO RIGHT UPPER ARM PICC LINE. PT HAS SCD'S ON
[2016-06-18 19:48] LABS: ERYTHROCYTE SEDIMENTATION RATE 31 mm/hr (0-30)
--- NOTE | 2016-06-18 22:05 | NUR ---
FIRST UNIT OF FFP STARTED.
--- NOTE | 2016-06-18 22:48 | NUR ---
PT CLEANED UP FROM EPISODE OF INCONTINENCE OF BOWEL. DARK LOOSE STOOL. EVIDENCE OF DARK MAROON BLOOD. PT UNAWARE WHEN HAS BOWEL MOVEMENT.
--- NOTE | 2016-06-18 23:30 | NUR ---
REPORT RECEIVED AND CARE ASSUMED. SHIFT ASSESSMENT COMPLETED PER FLOW SHEET.
--- NOTE | 2016-06-18 23:44 | NUR ---
WAS INSTRUCTED BY LAB AT TIME OF FFP DIGITAL CONTENT MARKETING MANAGER THAT IF PT NEEDS ANY MORE BLOOD PRODUCTS, SHE WILL NEED A NEW TYPE AND CROSS BECAUSE HER CURRENT BAND EXPIRES TONIGHT.
[2016-06-19] VITALS (24 sets, daily range): BP systolic 106–150; BP diastolic 50–99
[2016-06-19 06:18] LABS: BASOPHILS 0.1 % (0-2); EOSINOPHILS 0 % (0-7); IMMATURE GRANULOCYTES 0.3 % (0-5); LYMPHOCYTES 5.5 % (15-50); MCH 29.1 pg (26.0-34.0); MONOCYTES 5.7 % (2-11); NEUTROPHILS 88.4 % (40-80); PLATELET COUNT 146 10x3/uL (130-400); RBC 2.96 10x6/uL (4.00-5.40); RDW 14.4 % (11.5-14.5)
[2016-06-19 06:27] LABS: HEMATOCRIT 24.6 % (36.0-48.0); HEMOGLOBIN 8.6 g/dL (12-16); MCV 83.1 fL (80.0-100.0)
[2016-06-19 06:46] LABS: INR 1.35 (0.85-1.17); PROTIME 16.6 SECONDS (11.6-15.0)
--- NOTE | 2016-06-19 07:00 | NUR ---
PT AWAKE ALERT AND ORIENTED. ABLE TO VERBALIZE NEEDS AND OBEY COMMANDS. DENIES PAIN AT THIS TIME. CRITICAL POTASSIUM CALLED AND WILL REPLACE PER PROTOCOL. VITAL SIGNS STABLE
[2016-06-19 07:02] LABS: ALBUMIN 1.5 g/dL (3.4-5.0); BILIRUBIN - TOTAL 0.49 mg/dL (0.2-1.3); CALCIUM 8.1 mg/dL (8.5-10.1); MAGNESIUM - SERUM 1.3 mg/dL (1.8-2.4); PHOSPHOROUS 3.5 mg/dL (2.5-4.9); PROTEIN - SERUM 4.5 g/dL (6.4-8.2)
[2016-06-19 07:09] LABS: ANION GAP 11.3 mmol/L (8-16); CARBON DIOXIDE 26.7 mmol/L (21.0-32.0); CREATININE - SERUM 0.9 mg/dL (0.6-1.3)
--- NOTE | 2016-06-19 09:00 | NUR ---
AT BEDSIDE. PT ATE AND TOLERATED BREAKFAST. PO MEDS TAKEN WITHOUT DIFFICULTY. BLOODY/TARRY STOOL NOTED. PT CLEANED AND LINENS CHANGED
--- NOTE | 2016-06-19 11:00 | NUR ---
ANOTHER BLOODY STOOL NOTED. WILL RECHECK H&H TO VERIFY IF PT NEEDS BLOOD TRANSFUSION TODAY. WILL CONTINUE TO MONITOR
--- NOTE | 2016-06-19 12:06 | NUR ---
NUTRITION MONITORING & EVAL CHART REVIEWED, PT NOW IN ICU. CLEAR LIQUID DIET STARTED. WILL MONITOR DIET ADVANCMENT, PO INTAKE, PT PROGRESS. RD FOLLOWING
[2016-06-19 12:48] LABS: HEMATOCRIT 25.8 % (36.0-48.0); HEMOGLOBIN 9.1 g/dL (12-16)
--- NOTE | 2016-06-19 13:00 | NUR ---
PT REMAINS STABLE AT THIS TIME WITH NO ACUTE CHANGES. REPLACING POTASSIUM AND MAGNESIUM PER PROTOCOL.
--- NOTE | 2016-06-19 15:00 | NUR ---
PT HAD BLOODY STOOL. CLEANED AND FULL LINEN CHANGE COMPLETE. CALLED DR TATUM ABOUT NEW H&H RESULTS AND HE STATES THAT THERE IS NO REASON TO TRANSFUSE PRBC TODAY. WILL CONTINUE TO MONITOR
[2016-06-19 16:26] LABS: CARBON DIOXIDE 27.9 mmol/L (21.0-32.0); CHLORIDE - SERUM 108 mmol/L (98-107); CREATININE - SERUM 0.7 mg/dL (0.6-1.3); UREA NITROGEN 32 mg/dL (7-18); eGFR NON AFRICAN AMERICAN 87 mL/min (90-120)
--- NOTE | 2016-06-19 17:00 | NUR ---
PT RESTING AT THIS TIME WITH NO COMPLAINTS. VITAL SIGNS STABLE.
[2016-06-19 17:14] LABS: CALC OSMOLALITY 295 mosm/kg (275-300); GLUCOSE 170 mg/dL (74-106); POTASSIUM - SERUM 3.4 mmol/L (3.5-5.1); SODIUM 143 mmol/L (136-145)
[2016-06-19 17:19] LABS: CALCIUM 8.1 mg/dL (8.5-10.1)
[2016-06-19 19:01] LABS: HEMATOCRIT 25.6 % (36.0-48.0)
--- NOTE | 2016-06-19 19:30 | NUR ---
REPORT RECIEVED, SHIFT ASSESSMENT COMPLETE, PT IS ALERT AND ORIENTED, ON 2L NC WITH 98% O2 SAT. LUNGS CLEAR IN B/L UPPER LOBES, DIMINISHED IN B/L LOWER LOBES, S1S2, CM-NSR, PATENT RIGHT UPPER ARM PICC...SEE FLOW SHEET...ABDOMEN IS SOFT AND ROUND WITH ACTIVE BS, PATENT F/C WITH CONCENTRATED UOP, EDEMA NOTED IN ALL EXTREMETIES, ALL PPP, VSS, CALL LIGHT IN REACH
--- NOTE | 2016-06-19 23:30 | NUR ---
SM LIQUID TARRY BM AT THIS TIME, REPOSTIONED FOR COMFORT,
[2016-06-20] VITALS (15 sets, daily range): BP systolic 110–167; BP diastolic 51–79
--- NOTE | 2016-06-20 01:30 | NUR ---
PT RESTING AT THIS TIME, NO NEEDS NOTED, WILL CON'T TO MONITOR
--- NOTE | 2016-06-20 03:23 | NUR ---
REASSESSMENT COMPLETE, NO CHANGES NOTED, PT RESTING AT THIS TIME, DENIES ANY NEEDS, VSS, CALL LIGHT IN REACH
[2016-06-20 04:24] LABS: BASOPHILS 0.1 % (0-2); EOSINOPHILS 0 % (0-7); HEMATOCRIT 27.3 % (36.0-48.0); HEMOGLOBIN 9.3 g/dL (12-16); IMMATURE GRANULOCYTES 0.4 % (0-5); LYMPHOCYTES 8.6 % (15-50); MCH 28.7 pg (26.0-34.0); MCHC 34.1 g/dL (31.0-37.0); MCV 84.3 fL (80.0-100.0); MONOCYTES 7.6 % (2-11); NEUTROPHILS 83.3 % (40-80); PLATELET COUNT 172 10x3/uL (130-400); RBC 3.24 10x6/uL (4.00-5.40); RDW 14.7 % (11.5-14.5)
[2016-06-20 04:30] LABS: WBC 8.3 10x3/uL (4.8-10.8)
[2016-06-20 04:47] LABS: ALBUMIN 1.6 g/dL (3.4-5.0); ALKALINE PHOSPHATASE 96 U/L (46-116); ALT (SGPT) 88 U/L (10-68); BILIRUBIN - TOTAL 0.49 mg/dL (0.2-1.3); CALC OSMOLALITY 288 mosm/kg (275-300); CALCIUM 8.4 mg/dL (8.5-10.1); CARBON DIOXIDE 30.4 mmol/L (21.0-32.0); CHLORIDE - SERUM 106 mmol/L (98-107); CREATININE - SERUM 0.6 mg/dL (0.6-1.3); GLUCOSE 130 mg/dL (74-106); PROTEIN - SERUM 4.9 g/dL (6.4-8.2); SODIUM 142 mmol/L (136-145); UREA NITROGEN 25 mg/dL (7-18); eGFR NON AFRICAN AMERICAN > 90 mL/min (90-120)
[2016-06-20 04:48] LABS: POTASSIUM - SERUM 2.6 mmol/L (3.5-5.1)
--- NOTE | 2016-06-20 05:00 | NUR ---
SM LIQUID TARRY BM AT THIS TIME
--- NOTE | 2016-06-20 07:00 | NUR ---
PT AWAKE AND ALERT, FOLLOWING COMMANDS WITH NO DEFICITS. REPLACING LOW POTASSIUM PER PROTOCOL AND MONITORING DURING THERAPY. TARRY BM NOTED, PT CLEANED AND FULL LINEN CHANGE COMPLETE. VITAL SIGNS STABLE
--- NOTE | 2016-06-20 08:15 | NUR ---
DR RAWLS ROUNDED ON PT. WILL MONITOR POTASSIUM AND IF STABLE PT CAN TRANSFER TO FLOOR. WILL RECHECK POTASSIUM PER ORDER.
--- NOTE | 2016-06-20 09:00 | NUR ---
DR TATUM SAW PT AND GAVE UPDATE TO AT BEDSIDE. MEDS GIVEN AND PT TOLERATED. SITTING UP EATING BREAKFAST WITH MINIMAL ASSISTANCE AT THIS TIME.
--- NOTE | 2016-06-20 09:59 | NUR ---
NUTRITION MONITORING & EVAL SPOKE WITH PT AND SPOUSE RE:OPTIMIZING CLEAR LIQUID DIET. ADDED ENSURE CLEAR TO CURRENT DIET ORDER. RD FOLLOWING
--- NOTE | 2016-06-20 11:00 | NUR ---
TARRY BM NOTED. PT CLEANED AND LINENS CHANGED. TURNED ON SIDE. VITAL SIGNS STABLE
[2016-06-20 12:25] LABS: VANCOMYCIN - TROUGH 5.5 ug/mL (10.0-20.0)
[2016-06-20 12:27] LABS: POTASSIUM - SERUM 3.2 mmol/L (3.5-5.1)
--- NOTE | 2016-06-20 13:00 | NUR ---
PT WILL TRANSFER TO FLOOR TODAY PER ORDER. EXPLAINED TO PT. WILL CONTINUE TO MONITOR. VITAL SIGNS STABLE
--- NOTE | 2016-06-20 14:00 | NUR ---
PT HAS BED ON MED/SURG. REPORT CALLED TO LUCERO GUERRERO. WILL TRANSFER PT.
--- NOTE | 2016-06-20 14:20 | NUR ---
I RECEIVED A CALL FROM [facility]. SHE IS QUESTIONING IF PATIENT NEEDS TO STILL BE HERE AND HER DISCHARGE PLAN. I SPOKE WITH THE PATIENT AND HER SPOUSE, KIMBERLY DUQUE. THEY ARE LOOKING AT POSSIBILITY OF SNF AT [facility] OR [facility] ([place], [place]) AT DISCHARGE IF SHE IS NOT READY FOR ACUTE REHAB. HER STATES THAT PATIENT HAS PN, NEWLY DX CHRONNS DISEASE, LOW BLOOD COUNT AND STILL NEEDS CLOSE MONITORING. PATIENT IS TO BE MOVED TO THE FLOOR TODAY. I HAVE CALLED SARAH OSMAN BACK AND LEFT A MESSAGE REGARDING POSSIBILITY OF SNF OR ACUTE REHAB AT DISCHARGE. SARAH JACQUI ASKED IF REFERRED TO HER LATEX DIPPER SHOULD HE CONTACT DR. RAWLS. IT APPEARS THAT DR RAWLS MAY BE ABLE TO UPDATE THEM WITH A BETTER PICTURE OF PATIENT'S CONDITION THAN IS REFLECTED IN THE CLINICAL DOCUMENTATION.
--- NOTE | 2016-06-20 15:20 | NUR ---
PT TRANSFER TO MED/SURG 2235 WITH BELONGINGS AT BEDSIDE AND WITH . PT ON O2 2L. NO COMPLAINTS AT THIS TIME. REPORT HAS BEEN CALLED
--- NOTE | 2016-06-20 19:58 | NUR ---
AWAKE,ALERT. NO COMPLAINTS VOICED. RIGHT PICC INTACT WIHT IV INFUSING WIHTOUT REDNESS OR EDEMA NOTED.CL IN REACH.
--- NOTE | 2016-06-21 01:35 | NUR ---
RESTING QUIETLY. NO DISTRESS NOTED.
--- NOTE | 2016-06-21 02:00 | NUR ---
PT IN BED WITH NO NEEDS. RESPIRATIONS EVEN AND UNLABORED. SIDE RAILS X 2. BED LOW. CALL LIGHT IN REACH.
[2016-06-21 04:00] VITALS: BP 171/61
--- NOTE | 2016-06-21 05:56 | NUR ---
NO CHANGE IN ASSESSMENT. CL IN REACH
[2016-06-21 06:10] LABS: BASOPHILS 0 % (0-2); EOSINOPHILS 0.3 % (0-7); HEMATOCRIT 23.6 % (36.0-48.0); HEMOGLOBIN 7.8 g/dL (12-16); IMMATURE GRANULOCYTES 0.6 % (0-5); LYMPHOCYTES 12.8 % (15-50); MCH 28.5 pg (26.0-34.0); MCHC 33.1 g/dL (31.0-37.0); MCV 86.1 fL (80.0-100.0); MEAN PLATELET VOLUME 9.8 fL (7.4-10.4); MONOCYTES 7.4 % (2-11); NEUTROPHILS 78.9 % (40-80); PLATELET COUNT 181 10x3/uL (130-400); RBC 2.74 10x6/uL (4.00-5.40); RDW 14.9 % (11.5-14.5); WBC 7.2 10x3/uL (4.8-10.8)
[2016-06-21 06:44] LABS: CALCIUM 7.7 mg/dL (8.5-10.1); CARBON DIOXIDE 32.6 mmol/L (21.0-32.0); CHLORIDE - SERUM 107 mmol/L (98-107); CREATININE - SERUM 0.5 mg/dL (0.6-1.3); GLUCOSE 91 mg/dL (74-106); SODIUM 142 mmol/L (136-145); eGFR NON AFRICAN AMERICAN > 90 mL/min (90-120)
[2016-06-21 07:10] LABS: CALC OSMOLALITY 283 mosm/kg (275-300); POTASSIUM - SERUM 2.6 mmol/L (3.5-5.1); UREA NITROGEN 14 mg/dL (7-18)
[2016-06-21 08:25] VITALS: BP 167/64
--- NOTE | 2016-06-21 08:46 | NUR ---
PT AOX1 RESP EVEN AND NONLABORED IV TO RIGHT AC PATENT AND INTACT BYNUM PATENT AND INTACT. PT DENIES NEEDS AT THIS TIME SRX2 BED AT LOWEST SETTING CALL LIGHT WITHIN REACH WILL CONTINUE TO MONITOR
[2016-06-21 10:59] VITALS: BP 160/63
--- NOTE | 2016-06-21 18:48 | NUR ---
PT PICC LINE DRESSING CHANGED USING STERILE TECHNIQUE AT THIS TIME
--- NOTE | 2016-06-21 19:00 | NUR ---
BEDSIDE REPORT RECEIVED AND CARE OF PT ASSUMED. PT LYING IN SUPINE POSITION WATCHING TV. RIGHT PICC PATENT WITH 1/2 NS INFUSING AT 50 ML / HR. BYNUM CATHETER DRAINING TO GRAVITY WITH YELLOW URINE IN COLLECTION BAG. WILL MONIOR CLOSELY FOR NEEDS.
[2016-06-21 20:49] VITALS: BP 170/72
--- NOTE | 2016-06-21 22:22 | NUR ---
HS MEDICATIONS GIVEN. WILL CONTINUE TO MONITOR FOR NEEDS.
[2016-06-22] VITALS (11 sets, daily range): BP systolic 144–187; BP diastolic 64–79
--- NOTE | 2016-06-22 | NUR ---
NPO STATUS BEGINS NOW. DRINKS REMOVED FROM BEDSIDE TABLE.
--- NOTE | 2016-06-22 02:00 | NUR ---
FSBS 88 THIS CHECK. WILL CONTINUE TO MONITOR FOR NEEDS.
--- NOTE | 2016-06-22 04:27 | NUR ---
NEMESIO BLOOD FROM PICC LINE FOR AM LABS AND DELIVERED TO ENTERTAINMENT & MEDIA CORRESPONDENT. FLUSHED LINES WELL AFTER.
--- NOTE | 2016-06-22 04:29 | NUR ---
PT HAD BM ON BEDPAN...STOOL WITH DARK RED / BURGANDY BLOOD.
[2016-06-22 05:31] LABS: BASOPHILS 0.1 % (0-2); EOSINOPHILS 0.4 % (0-7); IMMATURE GRANULOCYTES 0.6 % (0-5); LYMPHOCYTES 13.6 % (15-50); MCHC 34.1 g/dL (31.0-37.0); MEAN PLATELET VOLUME 10.1 fL (7.4-10.4); MONOCYTES 6.9 % (2-11); NEUTROPHILS 78.4 % (40-80); PLATELET COUNT 182 10x3/uL (130-400); RDW 14.7 % (11.5-14.5)
[2016-06-22 05:40] LABS: HEMATOCRIT 36.7 % (36.0-48.0); HEMOGLOBIN 12.5 g/dL (12-16); RBC 4.17 10x6/uL (4.00-5.40); WBC 9.4 10x3/uL (4.8-10.8)
[2016-06-22 06:17] LABS: ALBUMIN 1.7 g/dL (3.4-5.0); ALKALINE PHOSPHATASE 114 U/L (46-116); ALT (SGPT) 117 U/L (10-68); BILIRUBIN - TOTAL 0.59 mg/dL (0.2-1.3); CALC OSMOLALITY 274 mosm/kg (275-300); CALCIUM 7.5 mg/dL (8.5-10.1); CARBON DIOXIDE 31.7 mmol/L (21.0-32.0); CHLORIDE - SERUM 104 mmol/L (98-107); CREATININE - SERUM 0.5 mg/dL (0.6-1.3); GLUCOSE 71 mg/dL (74-106); POTASSIUM - SERUM 3.7 mmol/L (3.5-5.1); PROTEIN - SERUM 4.5 g/dL (6.4-8.2); SODIUM 139 mmol/L (136-145); eGFR NON AFRICAN AMERICAN > 90 mL/min (90-120)
[2016-06-22 06:24] LABS: UREA NITROGEN 9 mg/dL (7-18)
--- NOTE | 2016-06-22 20:00 | NUR ---
PT RECEIVED SITTING UP IN BED WATCHING TELEVISION. ASSESSMENT COMPLETED PER FLOWSHEET. CALL LIGHT AND H2O IN PT REACH. BED IN LOW POSITION. SIDERAILS UP X2.
[2016-06-23] VITALS: BP 150/76
--- NOTE | 2016-06-23 03:53 | NUR ---
RN NOTE: PT RESTING IN SUPINE POSITION WITH EYES CLOSED AND EASY RESPIRATIONS. RIGHT PICC PATENT WITH 1/2 NS INFUSING AT 50 ML / HR. BYNUM CATHETER DRAINING TO GRAVITY WITH YELLOW URINE IN COLLECTION BAG. SIDE RAILS UP X2 FOR SAFETY. WILL CONTINUE TO MONITOR FOR NEEDS.
[2016-06-23 04:00] VITALS: BP 148/82
[2016-06-23 06:58] LABS: BASOPHILS 0.1 % (0-2); EOSINOPHILS 0.1 % (0-7); HEMATOCRIT 37.2 % (36.0-48.0); HEMOGLOBIN 12.8 g/dL (12-16); IMMATURE GRANULOCYTES 0.8 % (0-5); LYMPHOCYTES 13.3 % (15-50); MCHC 34.4 g/dL (31.0-37.0); MCV 87.3 fL (80.0-100.0); MEAN PLATELET VOLUME 9.6 fL (7.4-10.4); MONOCYTES 7.1 % (2-11); NEUTROPHILS 78.6 % (40-80); PLATELET COUNT 201 10x3/uL (130-400); RBC 4.26 10x6/uL (4.00-5.40); RDW 14.8 % (11.5-14.5); WBC 10.4 10x3/uL (4.8-10.8)
[2016-06-23 07:23] LABS: CALC OSMOLALITY 272 mosm/kg (275-300); CALCIUM 7.4 mg/dL (8.5-10.1); CHLORIDE - SERUM 100 mmol/L (98-107); CREATININE - SERUM 0.5 mg/dL (0.6-1.3); GLUCOSE 79 mg/dL (74-106); SODIUM 138 mmol/L (136-145); UREA NITROGEN 7 mg/dL (7-18); eGFR NON AFRICAN AMERICAN > 90 mL/min (90-120)
[2016-06-23 07:28] LABS: POTASSIUM - SERUM 2.7 mmol/L (3.5-5.1)
--- NOTE | 2016-06-23 08:52 | NUR ---
PT SEEN THIS AM. 2+ EDEMA NOTED TO BILAT LOWER LEGS TO FEET. BYNUM PRESENT. CURRENTLY ON BEDPAN-REMOVED BUT NO STOOL NOTED. LUNGS CLEAR BILAT. BED ALARM ON FOR SAFETY AND CALL LIGHT IN REACH
[2016-06-23 11:35] VITALS: BP 137/63
--- NOTE | 2016-06-23 14:32 | NUR ---
Nutrition Follow Up: Pt reported that her appetite remains poor. She said that some textures make her nauseated. Pt stated that she is drinking Boost and Glucerna. Pt is eating 26% meal avg on a regular diet. +BM 06/23/16. I<O. Labs reviewed. Meds noted. Pt continues with poor po intake. Rec consider an appetite stimulant. Rec cotninue current diet. RD following.
[2016-06-23 16:00] VITALS: BP 144/63
--- NOTE | 2016-06-23 16:48 | NUR ---
CM REASSESSMENT NOTE: [facility] WAS NOTIFIED AND REFERRAL SENT ON PATIENT. SPOUSE AND IN AGREEMENT.
[2016-06-23 20:00] VITALS: BP 179/89
--- NOTE | 2016-06-23 22:51 | NUR ---
REC'D PATIENT SITTING UP IN BED. ALERT AND ORIENTED X4. NO DISTRESS NOTED. TOOK OFF OF THE BED JUSTICE. IS ASKING ABOUT A SLEEPING PILL. STATED THAT CESAR BELCHER LOOKED AND SAID THAT SHE COULD HAVE IT AT 1999. THERE IS NO RESTORIL ON THE EMAR, AND IT IS DC'D 06/21/16. WILL PASS ON TO THE DAY SHIFT NURSE. DENIES FURTHER NEEDS AT THIS TIME. BED LOW, LOCKED, CALL LIGHT IN REACH, ALARM ON.
--- NOTE | 2016-06-23 22:55 | NUR ---
PATIENT RESTING IN BED WATCHING TV AND DENIES NEEDS AT THIS TIME. PATIENT DENIES NEEDS AT THIS TIME. BED IN LOWEST POSITION, CALL LIGHT WITHIN REACH, AND BED ALARM IS ON. ENCOURAGED THE PATIENT TO CALL IF SHE HAS NEEDS.
[2016-06-24] VITALS: BP 114/63
--- NOTE | 2016-06-24 03:21 | NUR ---
PATIENT IS SLEEPING. NO DISTRESS NOTED. WILL CONT TO MONITOR. BED LOW, LOCKED, CALL LIGHT IN REACH, ALARM ON.
[2016-06-24 04:00] VITALS: BP 123/94
[2016-06-24 05:14] LABS: BASOPHILS 0 % (0-2); EOSINOPHILS 0.1 % (0-7); HEMATOCRIT 34.9 % (36.0-48.0); HEMOGLOBIN 11.8 g/dL (12-16); IMMATURE GRANULOCYTES 0.8 % (0-5); LYMPHOCYTES 13.3 % (15-50); MCHC 33.8 g/dL (31.0-37.0); MCV 88.8 fL (80.0-100.0); MEAN PLATELET VOLUME 9.7 fL (7.4-10.4); MONOCYTES 5.7 % (2-11); NEUTROPHILS 80.1 % (40-80); PLATELET COUNT 206 10x3/uL (130-400); RBC 3.93 10x6/uL (4.00-5.40); RDW 14.6 % (11.5-14.5); WBC 8.9 10x3/uL (4.8-10.8)
[2016-06-24 05:39] LABS: ALBUMIN 1.6 g/dL (3.4-5.0); ALKALINE PHOSPHATASE 140 U/L (46-116); ALT (SGPT) 118 U/L (10-68); CALC OSMOLALITY 274 mosm/kg (275-300); CALCIUM 7.4 mg/dL (8.5-10.1); CARBON DIOXIDE 32.1 mmol/L (21.0-32.0); CHLORIDE - SERUM 101 mmol/L (98-107); CREATININE - SERUM 0.4 mg/dL (0.6-1.3); POTASSIUM - SERUM 3.9 mmol/L (3.5-5.1); PROTEIN - SERUM 4.3 g/dL (6.4-8.2); SODIUM 137 mmol/L (136-145); UREA NITROGEN 8 mg/dL (7-18); eGFR NON AFRICAN AMERICAN > 90 mL/min (90-120)
[2016-06-24 05:40] LABS: GLUCOSE 158 mg/dL (74-106)
--- NOTE | 2016-06-24 07:40 | NUR ---
PT CONFUSED WITH FAMILY AT BEDSIDE. IV TO RIGHT PICC IN AC PATENT AND INTACT AT THIS TIME SRX2 CALL LIGHT WITHIN REACH WILL CONTINUE TO MONITOR
[2016-06-24 09:55] VITALS: BP 179/80
[2016-06-24 12:31] VITALS: BP 156/74
[2016-06-24 16:50] VITALS: BP 199/50
[2016-06-24 19:00] VITALS: BP 139/63
--- NOTE | 2016-06-24 23:03 | NUR ---
REC'D PATIENT LYING IN BED. ALERT AND ORIENTED X4. DENIES PAIN AT THIS TIME. NO DISTRESS NOTED. INSTRUCTED TO CALL IF NEEDED ANYTHING. WANTING TO KNOW ABT HER RESTORIL PILL. INFORMED HER THAT I WOULD BE AROUND TO GIVE AT 2029. PT VERBALIZED UNDERSTANDING. DENIED FURTHER NEEDS AT THIS TIME. BED LOW, LOCKED, CALL LIGHT IN REACH.
--- NOTE | 2016-06-25 03:53 | NUR ---
PT IN BED WITH HOB UP FOR COMFORT WITH EYES CLOSED AND RESP. DEEP AND EVEN. PT. LYING ON HER RIGHT SIDE AND CALL LIGHT WITHIN REACH. IV INFUSING VIA PUMP WITHOUT ANY ALARMS.
[2016-06-25 04:00] VITALS: BP 197/82
[2016-06-25 04:59] LABS: BASOPHILS 0 % (0-2); EOSINOPHILS 0.2 % (0-7); HEMATOCRIT 36.2 % (36.0-48.0); HEMOGLOBIN 12.2 g/dL (12-16); IMMATURE GRANULOCYTES 0.5 % (0-5); LYMPHOCYTES 12.7 % (15-50); MCH 30.2 pg (26.0-34.0); MCHC 33.7 g/dL (31.0-37.0); MCV 89.6 fL (80.0-100.0); MEAN PLATELET VOLUME 9.8 fL (7.4-10.4); MONOCYTES 5.8 % (2-11); NEUTROPHILS 80.8 % (40-80); PLATELET COUNT 203 10x3/uL (130-400); RBC 4.04 10x6/uL (4.00-5.40); RDW 14.8 % (11.5-14.5); WBC 9.9 10x3/uL (4.8-10.8)
[2016-06-25 05:10] LABS: ALBUMIN 1.8 g/dL (3.4-5.0); ALKALINE PHOSPHATASE 147 U/L (46-116); ALT (SGPT) 133 U/L (10-68); BILIRUBIN - TOTAL 0.53 mg/dL (0.2-1.3); CALC OSMOLALITY 275 mosm/kg (275-300); CALCIUM 7.9 mg/dL (8.5-10.1); CHLORIDE - SERUM 103 mmol/L (98-107); CREATININE - SERUM 0.5 mg/dL (0.6-1.3); POTASSIUM - SERUM 3.5 mmol/L (3.5-5.1); PROTEIN - SERUM 4.7 g/dL (6.4-8.2); SODIUM 139 mmol/L (136-145); UREA NITROGEN 8 mg/dL (7-18); eGFR NON AFRICAN AMERICAN > 90 mL/min (90-120)
[2016-06-25 05:16] LABS: GLUCOSE 94 mg/dL (74-106)
--- NOTE | 2016-06-25 06:52 | NUR ---
PATIENT IS ASLEEP FINALLY. WAS UP ALL NIGHT LONG. NO DISTRESS NOTED. WILL CONT TO MONTITOR. BED LOW, LOCKED, CALL LIGHT IN REACH.
--- NOTE | 2016-06-25 07:20 | NUR ---
PT CONFUSED SITTING IN BED RESP EVEN AND NONLABORED PT DENIES NEEDS AT THIS TIME. IV TO RIGHT AC PATENT AND INTACT AT THIS TIME. BED AT LOWEST SETTING CALL LIGHT WITHIN REACH SRX2 WILL CONTINUE TO MONITOR
[2016-06-25 08:22] VITALS: BP 173/68
[2016-06-25 14:04] VITALS: BP 151/69
[2016-06-25 16:45] VITALS: BP 133/64
[2016-06-25 20:22] VITALS: BP 198/86
--- NOTE | 2016-06-25 22:34 | NUR ---
PATIENT RESTING IN BED AND DENIES NEEDS AT THIS TIME. BED IN LOWEST POSITION AND CALL LIGHT WITHIN REACH. ENCOURAGED THE PATIENT TO CALL IF SHE HAS FURTHER NEEDS.
[2016-06-26] VITALS: BP 134/84
--- NOTE | 2016-06-26 01:16 | NUR ---
REC'D PATIENT SITTING UP IN BED WATCHING TV. ALERT AND ORIENTED X4. NO DISTRESS NOTED. DENIES NEEDS. INSTRUCTED TO CALL IF NEEDED ANYTHING. WILL CONT TO MONITOR. BED LOW, LOCKED, CALL LIGHT IN REACH, ALARM ON.
[2016-06-26 04:00] VITALS: BP 126/73
[2016-06-26 06:18] LABS: BASOPHILS 0.1 % (0-2); EOSINOPHILS 0.5 % (0-7); HEMATOCRIT 35.5 % (36.0-48.0); HEMOGLOBIN 11.9 g/dL (12-16); IMMATURE GRANULOCYTES 0.4 % (0-5); LYMPHOCYTES 11.8 % (15-50); MCHC 33.5 g/dL (31.0-37.0); MCV 89.4 fL (80.0-100.0); MEAN PLATELET VOLUME 9.7 fL (7.4-10.4); MONOCYTES 5.5 % (2-11); NEUTROPHILS 81.7 % (40-80); PLATELET COUNT 198 10x3/uL (130-400); RBC 3.97 10x6/uL (4.00-5.40); RDW 14.7 % (11.5-14.5); WBC 10.7 10x3/uL (4.8-10.8)
[2016-06-26 06:39] LABS: ALBUMIN 1.7 g/dL (3.4-5.0); ALKALINE PHOSPHATASE 161 U/L (46-116); ALT (SGPT) 122 U/L (10-68); BILIRUBIN - TOTAL 0.48 mg/dL (0.2-1.3); CALCIUM 8.1 mg/dL (8.5-10.1); CHLORIDE - SERUM 103 mmol/L (98-107); CREATININE - SERUM 0.5 mg/dL (0.6-1.3); GLUCOSE 123 mg/dL (74-106); PROTEIN - SERUM 4.8 g/dL (6.4-8.2); SODIUM 137 mmol/L (136-145); eGFR NON AFRICAN AMERICAN > 90 mL/min (90-120)
[2016-06-26 06:42] LABS: CALC OSMOLALITY 275 mosm/kg (275-300); POTASSIUM - SERUM 4.1 mmol/L (3.5-5.1); UREA NITROGEN 14 mg/dL (7-18)
[2016-06-26 08:44] VITALS: BP 148/76
--- NOTE | 2016-06-26 08:46 | NUR ---
PT SEEN AND ASSESSED. PLACED ON BEDPAN WITH BROWN STOOL NOTED. NO SKIN BREAKDOWN OR REDNESS NOTED TO BUTTOCK. BED ALARM ON. BYNUM NOTED. CALL LIGHT IN REACH
--- NOTE | 2016-06-26 10:50 | NUR ---
ASSISTED OFF BEDPAN. NOTED BLOODY STOOLS NOTED. DR TATUM CALLED
[2016-06-26 12:00] VITALS: BP 122/82
--- NOTE | 2016-06-26 15:04 | OP ---
PATIENT NAME: FOSTER DUQUE MEDICAL RECORD: [id number] :42 LOCATION:[id number] ADMISSION DATE:05/14/16 SURGEON: LENIN TATUM DO DATE OF OPERATION: 06/22/2016 PROCEDURE: EGD with push enteroscopy, hemostasis with epinephrine and gold probe cautery. MEDICATIONS: Propofol IV per anesthesia. INDICATIONS FOR PROCEDURE: Ongoing anemia and melenic stools. FINDINGS: Informed consent was given. The patient was made comfortable with the above medication. After reaching an adequate level of sedation by slow IV push, the patient was placed on her left side. A pediatric colonoscope was then inserted under direct visualization through the mouth down to approximately 100 cm into the small bowel (jejunum). The scope was slowly withdrawn and the mucosa was carefully examined for any sites that were bleeding. There were 3 separate sites where interventions were performed. One site was in the duodenum where a Crohn ulceration was present. The Crohn's has improved significantly, but this one site did have some bright red blood in a very superficial location. A 1 cc of epinephrine was injected into the site and a gold probe was used to cauterize the tissues successfully. Another site included a very superficial oozing mucosal site near the incisura of the stomach. This was ablated with the gold probe without injection of epinephrine successfully. The third and final site was the most likely to be contributing to the patient's anemia. This also was a very superficial mucosal hemorrhagic site which could potentially be a Dieulafoy's lesion. Upon entrance into the stomach, this was located in the body of the stomach and did have bright red blood surrounding the site. It was washed way and there was no specific ulceration. A 1 cc of epinephrine was injected into the tissue directly involving this site and around it. Wide field cauterization with a gold probe was performed successfully with the strong focus over the site where the potential Dieulafoy is. This maneuver was successful and there was no bleeding visualized at the end of this examination. Other findings on the examination included improve Crohn's in the small bowel, esophagitis involving the GE junction and distal third of the esophagus. A small sliding hiatal hernia. The scope was withdrawn from the patient. The patient tolerated the procedure well and there were no complications. IMPRESSION: 1. Erosive esophagitis, improved from previous endoscopy. 2. Small sliding hiatal hernia. 3. Improving Crohn's. 4. Three oozing sites in separate locations involving the stomach and small bowel as described above. All cauterized with a gold probe and 2 of the sites injected with epinephrine successfully. PLAN AND RECOMMENDATIONS: 1. Return to floor. 2. Monitor for further bleeding and transfuse as necessary. 3. Continue Carafate and PPI is currently prescribed. 4. Continue current management of Crohn's as it seems to be adequate by the observed response on this endoscopy. 5. If it is evident that bleeding continues to occur and we have these drops in hemoglobin periodically, we will need to proceed with another modality to look OPERATIVE REPORT [id number] FOSTER DUQUE into the source of the bleeding such as the tagged red blood scan, CT angiogram, and possibly, a definitive angiogram. If a source of bleeding can be identified, the patient may need a surgical consultation for resection versus intervention radiology consultation for embolization of the vessel. TRANSINT:[id number] Voice Confirmation ID: [id number] DOCUMENT ID: [id number] LENIN TATUM DO at 1504 CC: [id number] DICTATION DATE: 06/22/16 1230 CENTRIFUGAL SPINNER: 06/23/16 0125 ADM IN [facility] [address] [place] [address]
[2016-06-26 16:56] VITALS: BP 121/55
[2016-06-26 18:00] VITALS: BP 161/72
--- NOTE | 2016-06-26 19:15 | NUR ---
REC'D PATIENT SITTING UP IN BED WATCHING TV. ALERT AND ORIENTED X4. WAS ON THE BEDPAN, CLEANED UP. BM HAD RED TINGE TO IT. DENIES PAIN AT THIS TIME. DENIES FURTHER NEEDS AT THIS TIME. INSTRUCTED TO CALL IF NEEDED ANYTHING. WILL CONT TO MONITOR, BED LOW, LOCKED, CALL LIGHT IN REACH, ALARM ON.
--- NOTE | 2016-06-26 22:09 | NUR ---
PATIENTS CATHETER WAS LEAKING, CHECKED THE BALLOON AND ONLY HAD 8ML IN, ADDED ANOTHER 2ML AND FLUSHED. SEEMED TO START FLOWING AGAIN. WILL CONT TO MONITOR THROUGHOUT THE NIGHT.
[2016-06-27 04:00] VITALS: BP 141/13
[2016-06-27 05:56] LABS: BASOPHILS 0.1 % (0-2); EOSINOPHILS 0.3 % (0-7); HEMATOCRIT 34.4 % (36.0-48.0); HEMOGLOBIN 11.4 g/dL (12-16); IMMATURE GRANULOCYTES 0.4 % (0-5); LYMPHOCYTES 11.2 % (15-50); MCH 29.6 pg (26.0-34.0); MCHC 33.1 g/dL (31.0-37.0); MCV 89.4 fL (80.0-100.0); MONOCYTES 6.6 % (2-11); NEUTROPHILS 81.4 % (40-80); PLATELET COUNT 193 10x3/uL (130-400); RBC 3.85 10x6/uL (4.00-5.40); RDW 14.5 % (11.5-14.5); WBC 9.4 10x3/uL (4.8-10.8)
[2016-06-27 06:12] LABS: CALC OSMOLALITY 278 mosm/kg (275-300); CALCIUM 8.2 mg/dL (8.5-10.1); CARBON DIOXIDE 34.6 mmol/L (21.0-32.0); CHLORIDE - SERUM 102 mmol/L (98-107); CREATININE - SERUM 0.6 mg/dL (0.6-1.3); GLUCOSE 122 mg/dL (74-106); SODIUM 138 mmol/L (136-145); UREA NITROGEN 17 mg/dL (7-18); eGFR NON AFRICAN AMERICAN > 90 mL/min (90-120)
[2016-06-27 06:22] LABS: POTASSIUM - SERUM 3.3 mmol/L (3.5-5.1)
--- NOTE | 2016-06-27 07:56 | NUR ---
AWAKE AND ALERT. ORIENTED X3. NO C/O THIS AM. LUNGS ARE CLEAR BILATERALLY, NO COUGH NOTED. SKIN IS INTACT WITHOUT REDNESS. REPORTS GOOD BM PATTERN. PICC TO RIGHT UPPER ARM IS PATENT WITHOUT REDNESS AT INSERTION SITE. BYNUM PATENT WITH CLEAR YELLOW URINE. DENIES NEEDS.
[2016-06-27 08:52] VITALS: BP 176/90
--- NOTE | 2016-06-27 09:00 | NUR ---
TOOK ALL OF AM MEDS WITHOUT DIFFICULTY. UP IN CHAIR AT BEDSIDE PER PT.
--- NOTE | 2016-06-27 09:58 | NUR ---
CM REASSESSMENT NOTE: [facility] REF PATIENT DUE TO MEDS. AND HAD NOT IMPROVED WITH PT OVER THE WEEKEND. PATIENTS SPOUSE IS GOING TO LOOK AT [facility] AND LET CM KNOW THIS AFTERNOON WHERE TO SEND REFERRAL ([facility] OR [facility]).
--- NOTE | 2016-06-27 12:30 | NUR ---
SITTING UP IN CHAIR FOR LUNCH. AT BEDSIDE.
--- NOTE | 2016-06-27 13:09 | NUR ---
NUTRITION MONITORING & EVAL VISIT WITH PT AND SPOUSE. PT TOLERATING REG DIET. PO INTAKE ~25 TO 50%. WILL CONTINUE TO HONOR FOOD PREFERENCES, MONITOR INTAKE. RD FOLLOWING
[2016-06-27 13:45] VITALS: BP 121/55
--- NOTE | 2016-06-27 14:58 | NUR ---
RESTING QUIETLY IN BED WITH EYES CLOSED. NO NEEDS NOTED.
--- NOTE | 2016-06-27 16:27 | NUR ---
CM REASSESSMENT NOTE; PATIENT REFERRAL SENT TO [facility]
--- NOTE | 2016-06-27 16:54 | NUR ---
OT NOTE: VERY EXCITED REGARDING INCREASED MOVEMENT IN PTS L LE; PT WAS ABLE TO DEMONSTRATE KNEE FLEX MENDOZA AND ATTEMPT TO REACH FOR HAND RAIL IN ORDER TO TURN IN BED. DISCUSSED DC PLANS WITH WHO REPORTED THAT PT WOULD HAVE TO GO TO [facility], SHE WAS "TOO SICK" AT THIS TIME.
[2016-06-27 16:55] VITALS: BP 106/86
--- NOTE | 2016-06-27 17:07 | NUR ---
OT NOTE: PT COMPLETED BED MOB MIN/MOD A. PT COMPLETED BUE AROM FOR INCREASED I WITH ADLS. PT COMPLETED GROOMING WITH MIN A. THANK YOU, ANGEL OTTO/Kvng
--- NOTE | 2016-06-27 18:39 | NUR ---
ATE A FEW BITES OF SUPPER. JUST NOT HUNGRY. DENIES NEEDS. NO CHANGES NOTED.
--- NOTE | 2016-06-27 20:00 | NUR ---
PATIENT RESTING IN BED AND REQUESTED A SLEEPING PILL WITH HER NIGHT MEDS. PATIENT DENIES OTHER NEEDS AT THIS TIME. BED IN LOWEST POSITION, CALL LIGHT WITHIN REACH, AND BED ALARM ON. ENCOURAGED THE PATIENT TO CALL IF SHE HAS FURTHER NEEDS.
[2016-06-28 04:55] LABS: BASOPHILS 0.1 % (0-2); EOSINOPHILS 0.4 % (0-7); HEMATOCRIT 31.1 % (36.0-48.0); HEMOGLOBIN 10.3 g/dL (12-16); IMMATURE GRANULOCYTES 0.3 % (0-5); LYMPHOCYTES 11.8 % (15-50); MCH 29.9 pg (26.0-34.0); MCHC 33.1 g/dL (31.0-37.0); MCV 90.4 fL (80.0-100.0); MEAN PLATELET VOLUME 9.8 fL (7.4-10.4); MONOCYTES 6.1 % (2-11); NEUTROPHILS 81.3 % (40-80); PLATELET COUNT 185 10x3/uL (130-400); RBC 3.44 10x6/uL (4.00-5.40); RDW 14.8 % (11.5-14.5); WBC 11.5 10x3/uL (4.8-10.8)
[2016-06-28 05:22] LABS: ALBUMIN 1.7 g/dL (3.4-5.0); ALKALINE PHOSPHATASE 173 U/L (46-116); ALT (SGPT) 112 U/L (10-68); BILIRUBIN - TOTAL 0.32 mg/dL (0.2-1.3); CALC OSMOLALITY 277 mosm/kg (275-300); CALCIUM 8.7 mg/dL (8.5-10.1); CARBON DIOXIDE 30.3 mmol/L (21.0-32.0); CHLORIDE - SERUM 104 mmol/L (98-107); GLUCOSE 114 mg/dL (74-106); PROTEIN - SERUM 4.7 g/dL (6.4-8.2); SODIUM 138 mmol/L (136-145); UREA NITROGEN 15 mg/dL (7-18)
[2016-06-28 05:26] LABS: CREATININE - SERUM 0.4 mg/dL (0.6-1.3); POTASSIUM - SERUM 4.2 mmol/L (3.5-5.1); eGFR NON AFRICAN AMERICAN > 90 mL/min (90-120)
--- NOTE | 2016-06-28 07:46 | NUR ---
AWAKE AND ALERT. ORIENTED X2. REORIENTED BY STAFF. LUNGS ARE CLEAR BILATERALLY, NO COUGH NOTED. SKIN IS INTACT WITHOUT REDNESS. HAD MODERATE AMOUNT OF LOOSE STOOL WITH OBVIOUS BLOOD. SKIN CARE PER STAFF. LINENS CHANGED. PICC TO RIGHT UPPER ARM PATENT WITHOUT REDNESS AT INSERTION SITE. BYNUM PATENT WITH CLEAR YELLOW URINE. DENIES NEEDS.
[2016-06-28 09:01] VITALS: BP 143/63
--- NOTE | 2016-06-28 09:30 | NUR ---
SPOKE WITH DR. ESPITIA'S NURSE RE DIET. NO NEW ORDERS YET.
--- NOTE | 2016-06-28 11:18 | NUR ---
HAD SECOND LOOSE STOOL WITH OBVIOUS BLOOD.
[2016-06-28 12:00] VITALS: BP 114/41
--- NOTE | 2016-06-28 15:03 | NUR ---
CM REASSESSMENT NOTE: PATIENT HAS BEEN ACCEPTED TO [facility]. PATIENT WILL TRANSPORT TODAY BY FACILITY VAN TO A SKILLED BED. AT BEDSIDE.
[2016-06-28] MEDS ORDERED: IPRAT-ALBUT 0.5-3 ML UPD (15:05)
[2016-06-28] MEDS ORDERED: LOPRESSOR25 MG PO (15:06)
[2016-06-28] MEDS ORDERED: ZOLOFT50 MG PO (15:06)
[2016-06-28] MEDS ORDERED: TESSALON PERLE100 MG PO (15:07)
[2016-06-28] MEDS ORDERED: RESTORIL15 MG PO (15:07)
[2016-06-28] MEDS ORDERED: CARAFATE1 G/10 ML PO (15:08)
[2016-06-28] MEDS ORDERED: K-DUR20 MEQ PO (15:10)
[2016-06-28] MEDS ORDERED: FUROSEMIDE20 MG PO (15:11)
[2016-06-28] MEDS ORDERED: HUMIRA20 MG/0.4 SQ (15:18)
[2016-06-28] MEDS ORDERED: STERAPRED 5MG 65 M1 PO (15:18)
[2016-06-28] MEDS ORDERED: PREDNISONE10 MG PO (15:23)
[2016-06-28] MEDS ORDERED: IMURAN50 MG PO (15:32)
--- NOTE | 2016-06-28 15:55 | NUR ---
REPORT CALLED TO ELIZABETH GODOY LPN AT [facility]. ALL QUESTIONS ANSWERED. BYNUM D/C WITH TIP INTACT WITHOUT DIFFICULTY. PLACED IN ADULT BRIEF.
--- NOTE | 2016-06-28 16:04 | NUR ---
OT NOTE: PRACTICED DYNAMIC SITTING IN CHAIR WITH MOD CUES ; PERFORMED SIT TO STAND X 2 WITH MAX ASSIST, EDUCATED PT ON ASSISTING WITH ARMS AND PROPER POSITONING, THEN SHE WAS ABLE TO PERFORM WITH MOD ASSIST; MOD ASSIST WITH BED MOB. PT REPORTS EATING MORE TODAY AND DID NOT FEEL NAUSEOUS
[2016-06-28] MEDS ORDERED: ANUSOL-HC25 MG RC (16:08)
--- NOTE | 2016-06-28 16:27 | NUR ---
DISCHARGED TO [facility] VIA THEIR TRANSPORT. IN ROOM AT THIS TIME.
== END 2016-06-28 16:30 | DRG 682 ==
LOC: D.ER 12:45 → D.ICU 17:47 → D.MS 17:47 → D.ICU 05-24 23:23 → D.MS 06-01 14:43 → D.ICU 06-18 12:18 → D.MS 06-20 15:18
PROVIDERS: Emergency Medicine; Family Medicine; Internal Medicine Gastroenterology; Internal Medicine Nephrology; Internal Medicine Pulmonary Disease; ADMIT Family Medicine
PROC: 0T9B70Z Drainage of Bladder with Drainage Device, Via Natural or Artificial Opening (ICD-10-PCS; principal; 2016-05-14)
PROC: 0DJ08ZZ Inspection of Upper Intestinal Tract, Via Natural or Artificial Opening Endoscopic (ICD-10-PCS; 2016-05-18)
PROC: 0D9670Z Drainage of Stomach with Drainage Device, Via Natural or Artificial Opening (ICD-10-PCS; 2016-05-21)
PROC: 0DBN8ZX Excision of Sigmoid Colon, Via Natural or Artificial Opening Endoscopic, Diagnostic (ICD-10-PCS; 2016-05-24)
PROC: 0DB98ZX Excision of Duodenum, Via Natural or Artificial Opening Endoscopic, Diagnostic (ICD-10-PCS; 2016-06-07)
PROC: 0DB68ZX Excision of Stomach, Via Natural or Artificial Opening Endoscopic, Diagnostic (ICD-10-PCS; 2016-06-07)
PROC: 0DBE8ZX Excision of Large Intestine, Via Natural or Artificial Opening Endoscopic, Diagnostic (ICD-10-PCS; 2016-06-09)
PROC: 0W3P8ZZ Control Bleeding in Gastrointestinal Tract, Via Natural or Artificial Opening Endoscopic (ICD-10-PCS; 2016-06-22)
DX: N17.9 Acute kidney failure, unspecified (principal); G93.41 Metabolic encephalopathy; K26.4 Chronic or unspecified duodenal ulcer with hemorrhage; J69.0 Pneumonitis due to inhalation of food and vomit; J96.01 Acute respiratory failure with hypoxia; K29.81 Duodenitis with bleeding; E87.1 Hypo-osmolality and hyponatremia; N39.0 Urinary tract infection, site not specified; E87.2 Acidosis; E44.0 Moderate protein-calorie malnutrition; J44.1 Chronic obstructive pulmonary disease with (acute) exacerbation; A04.7 Enterocolitis due to Clostridium difficile; K56.7 Ileus, unspecified; K50.80 Crohn's disease of both small and large intestine without complications; E86.0 Dehydration; E83.41 Hypermagnesemia; E87.6 Hypokalemia; E83.51 Hypocalcemia; R33.9 Retention of urine, unspecified; M81.0 Age-related osteoporosis without current pathological fracture; K21.9 Gastro-esophageal reflux disease without esophagitis; E78.5 Hyperlipidemia, unspecified; K82.8 Other specified diseases of gallbladder; R09.02 Hypoxemia; I12.9 Hypertensive chronic kidney disease with stage 1 through stage 4 chronic kidney disease, or unspecified chronic kidney disease; N18.2 Chronic kidney disease, stage 2 (mild); R80.9 Proteinuria, unspecified; K25.9 Gastric ulcer, unspecified as acute or chronic, without hemorrhage or perforation; K29.70 Gastritis, unspecified, without bleeding; Z68.24 Body mass index [BMI] 24.0-24.9, adult; E88.09 Other disorders of plasma-protein metabolism, not elsewhere classified; K76.0 Fatty (change of) liver, not elsewhere classified; K57.90 Diverticulosis of intestine, part unspecified, without perforation or abscess without bleeding; F17.200 Nicotine dependence, unspecified, uncomplicated

== ENCOUNTER → 2016-07-11 11:28 | Outpatient (CLI) | payer MEDICARE ==
[2016-05-15 15:51] VITALS: BMI 24.1
[~2016-07-11 11:28] MED LIST changes: +ANUSOL-HC25 MG RC; +CARAFATE1 G/10 ML PO; +FUROSEMIDE20 MG PO; +HUMIRA20 MG/0.4 SQ; +IMURAN50 MG PO; +IPRAT-ALBUT 0.5-3 ML UPD; +K-DUR20 MEQ PO; +LOPRESSOR25 MG PO; +PREDNISONE10 MG PO; +RESTORIL15 MG PO; +STERAPRED 5MG 65 M1 PO; +TESSALON PERLE100 MG PO; +ZOLOFT50 MG PO
== END | disposition home or self-care (01) ==
LOC: D.RAD 11:28
DX: R06.02 Shortness of breath (principal); D72.829 Elevated white blood cell count, unspecified

== ENCOUNTER 2016-07-27 10:35 | Inpatient (IN) | payer MEDICARE ==
[2016-07-27] VITALS (7 sets, daily range): BP systolic 112–161; BP diastolic 51–68; BMI 21.9
[~2016-07-27] VITALS: Ht 154.9 cm; Wt 58.1 kg
[2016-07-27 11:55] LABS: APPEARANCE CLOUDY (CLEAR); BILIRUBIN NEGATIVE (NEGATIVE); COLOR YELLOW (YELLOW); GLUCOSE 50 mg/dL (NEGATIVE); KETONE NEGATIVE (NEGATIVE); LEUKOCYTE ESTERASE 2+ (NEGATIVE); NITRITE NEGATIVE (NEGATIVE); PROTEIN 1+ mg/dL (NEGATIVE); SPECIFIC GRAVITY 1.015 (1.005-1.020); UROBILINOGEN NORMAL (NORMAL)
[2016-07-27 11:56] LABS: WHITE CELLS - URINE >50 /hpf (0-5)
[2016-07-27 11:57] LABS: BACTERIA MANY /hpf (NONE SEEN); EPITHELIAL CELLS 0-5 /hpf (0-5); RED CELLS - URINE 0-5 /hpf (0-5)
[2016-07-27 12:30] LABS: BASOPHILS 0 % (0-2); EOSINOPHILS 0 % (0-7); HEMATOCRIT 22.9 % (36.0-48.0); IMMATURE GRANULOCYTES 0.6 % (0-5); LYMPHOCYTES 2.4 % (15-50); MCH 27.1 pg (26.0-34.0); MCHC 31.4 g/dL (31.0-37.0); MEAN PLATELET VOLUME 8.8 fL (7.4-10.4); MONOCYTES 2.4 % (2-11); NEUTROPHILS 94.6 % (40-80); PLATELET COUNT 297 10x3/uL (130-400); RBC 2.66 10x6/uL (4.00-5.40); RDW 15.7 % (11.5-14.5); WBC 12.7 10x3/uL (4.8-10.8)
[2016-07-27 12:36] LABS: HEMOGLOBIN 7.2 g/dL (12-16); MCV 86.1 fL (80.0-100.0)
[2016-07-27 12:45] LABS: ALBUMIN 1.7 g/dL (3.4-5.0); ALKALINE PHOSPHATASE 117 U/L (46-116); ALT (SGPT) 49 U/L (10-68); CALCIUM 9.1 mg/dL (8.5-10.1); CARBON DIOXIDE 24.5 mmol/L (21.0-32.0); CHLORIDE - SERUM 97 mmol/L (98-107); CREATININE - SERUM 0.7 mg/dL (0.6-1.3); POTASSIUM - SERUM 4.4 mmol/L (3.5-5.1); PROTEIN - SERUM 5.8 g/dL (6.4-8.2); SODIUM 132 mmol/L (136-145); eGFR NON AFRICAN AMERICAN 87 mL/min (90-120)
[2016-07-27 12:47] LABS: CALC OSMOLALITY 272 mosm/kg (275-300); GLUCOSE 215 mg/dL (74-106); UREA NITROGEN 17 mg/dL (7-18)
--- NOTE | 2016-07-27 18:41 | NUR ---
PT RECIEVED TO ROOM FROM ER. BLOOD RUNNING AT 125 ML/HR INTO LEFT WRIST. VS SHOW: T-98.4 ORALLY, BP - 118/67, P-82, SPO2-94 ON ROOM AIR. PT RESTING QUIETLY, BREATHING UNLABORED, EVEN. DENIES ANY PAIN. PT ALERT AND ORIENTED TO PERSON, PLACE, AND TIME. PT REPORTS LEFT SIDED WEAKNESS. DENIES OTHER NEEDS AT THIS TIME. WILL CONTINUE TO MONITOR.
[2016-07-28] VITALS (8 sets, daily range): BP systolic 109–126; BP diastolic 56–74; Ht 154.9 cm; Wt 58.1 kg
[2016-07-28] MEDS ORDERED: REQUIP0.25 MG PO (01:08)
--- NOTE | 2016-07-28 04:30 | NUR ---
ASSESSED AT THE BAEAGINNING OF THE SHIFT. PT IS ALERT AND ORIENTED, SHE SEEMS A LITELE CONFUSED AT TIMES. HER 1ST UNIT OF BLOOD FINSIHED SHORTLY AFTER WE CAME ON AND AFTER PASSING MEDS WE GAVE THE SECOND UNIT WITH NO PROBLEMS. SHE HAS RESTED WELL AND BEEN AWAKE OFF AND ON DURING THE NIGHT. SHE HAS TELEMETRY IN PLACE SHOWING 91 SINUS RHYTHMN. THE BED IS LOW, RAILS UP X'S 2 WITH THE CALL LIGHT AT HAND.
[2016-07-28 06:46] LABS: BASOPHILS 0 % (0-2); EOSINOPHILS 0 % (0-7); MCH 28.9 pg (26.0-34.0); MCHC 34.5 g/dL (31.0-37.0); MEAN PLATELET VOLUME 9.1 fL (7.4-10.4); MONOCYTES 2.6 % (2-11); NEUTROPHILS 90.4 % (40-80); RDW 16.2 % (11.5-14.5); WBC 10.6 10x3/uL (4.8-10.8)
[2016-07-28 06:54] LABS: HEMATOCRIT 32.5 % (36.0-48.0); HEMOGLOBIN 11.2 g/dL (12-16); MCV 83.8 fL (80.0-100.0); PLATELET COUNT 235 10x3/uL (130-400); RBC 3.88 10x6/uL (4.00-5.40)
[2016-07-28 07:13] LABS: HEMOGLOBIN A1C 6.4 % (4.8-6.0)
[2016-07-28 07:19] LABS: CALC OSMOLALITY 263 mosm/kg (275-300); CALCIUM 9.3 mg/dL (8.5-10.1); CARBON DIOXIDE 22.6 mmol/L (21.0-32.0); CHLORIDE - SERUM 99 mmol/L (98-107); CREATININE - SERUM 0.6 mg/dL (0.6-1.3); GLUCOSE 65 mg/dL (74-106); MAGNESIUM - SERUM 1.6 mg/dL (1.8-2.4); PHOSPHOROUS 3.3 mg/dL (2.5-4.9); POTASSIUM - SERUM 3.7 mmol/L (3.5-5.1); PRE-ALBUMIN 9.8 mg/dL (18.0-35.7); SODIUM 132 mmol/L (136-145); UREA NITROGEN 16 mg/dL (7-18); eGFR NON AFRICAN AMERICAN > 90 mL/min (90-120)
--- NOTE | 2016-07-28 10:33 | NUR ---
CALLED [facility] TO CONFIRM DOSE OF PREDNISONE. UPDATED THE MEDREC FOR PREDNISONE.
--- NOTE | 2016-07-28 10:48 | NUR ---
CALLED CT SPOKE WITH JESSICA. HE SAID IT IS OKAY TO GIVE ORAL MEDICATIONS, AND NOT TO HOLD FOR A CTA. GIVING MEDICATIONS NOW.
--- NOTE | 2016-07-28 15:43 | NUR ---
SCD'S ON AMBIKA LE
--- NOTE | 2016-07-28 18:08 | NUR ---
Patient Name: FOSTER DUQUE Admission Status: ER Accout number: [id number] Admission Date: 07-27-2016 : 1940 Admission Diagnosis:PNEUMONIA, UNSPECIFIED ORGANISM Attending: KESHA Current LOS: 1 Anticipated DC Date: Planned Disposition: Inpatient Rehab Primary Insurance: [facility] PLANNED EXTERNAL PROVIDER: [facility] Discharge Planning Comments: * Is the patient Alert and Oriented? Yes 0 * How many steps to enter\exit or inside your home? NONE 0 * PCP DR. RAWLS 0 * Pharmacy [facility] * Preadmission Environment [facility] 0 * Facility Name [facility] 0 * ADLs Partial Dependent 0 * Partial ADLs (Assistance needed) Ambulation Bathing Medication Management Transfers 0 * Equipment Other 0 * Other Equipment ALL EQUIPMENT PROVIDED BY [facility] 0 * List name and contact numbers for known caregivers / representatives who currently or will assist patient after discharge: BERNARD DUQUE, SPOUSE, 0 * Community resources currently utilized None 0 * Please name any agencies selected above. NONE 0 * Additional services required to return to the preadmission environment? Yes * Can the patient safely return to the preadmission environment? Yes 0 * Has this patient been hospitalized within the prior 30 days at any hospital? Yes 0 CM CALLED [facility], , SPOKE TO ROD, NURSE LIAISON, DISCUSSED PT'S NEED FOR HUMARIA INJECTIONS AND PT'S DESIRE TO GO TO INPATIENT REHAB. ROD TO SPEAK TO [facility] TO DETERMINE POSSIBLITY OF RECEIVING MEDICATION INPATIENT WITH REHAB AND CALL CM BACK. PT DID NOT HAVE A CMS DIAGNOSIS FOR INPATIENT REHAB TREATMENT DURING LAST MOST RECENT ADMISSION. CM MET WITH PT AND SPOUSE IN ROOM TO DISCUSS DISCHARGE NEEDS AND PLAN. PT AND SPOUSE DO NOT WANT PT TO RETURN TO [facility] FOR REHAB AT DISCHARGE. THEY WANT PT TO GO TO [facility]; PT'S SPOUSE REPORTS THEY KNOW PT AND PT'S SPOUSE PROVIDED NAME OF [facility] AND CONTACT NUMBER TO CM. SPOUSE REPORTS PT WAS DENIED TWICE BY INSURANCE AND HE THINKS IT WILL BE APPROVED NOW. BOTH PT AND SPOUSE REPORT PT TO BE ABLE TO TOLERATE THREE HOURS OF PROGRESSIVE THERAPY PER DAY NOW AND AGAIN STATED THAT INSURANCE SHOULD NOW APPROVE IT. PT'S SPOUSE WILL NOT CONSIDER ANY PLAN OTHER THAN [facility]. CM RECEIVED CALL BACK FROM ROD OF [facility] WHO REPORTED THAT HUMARIA IS NOT ON THE FORMULARY AND THE ONLY POSSIBLE OPTION WOULD BE FOR THE PT/FAMILY TO PICK THE MEDICATION UP AND PROVIDE IT TO THE REHAB TO BE ADMINISTERED THERE, IF THE FAMILY IS ABLE TO AFFORD IT; ROD ADVISED THAT HUMARIA IS NOT ON THE MEDICARE FORMULARY. ROD REPORTS CM IS WELCOME TO SEND A REFERRAL TO [facility]. CM TO FAX REFERRAL TO [facility] FOR INPATIENT REHAB CONSIDERATION AND POSSIBLE REQUEST FOR INSURANCE AUTHORIZATION. HUMARIA IS NOT ON THE FORMULARY AND THE ONLY POSSIBLE OPTION WOULD BE FOR THE PT/FAMILY TO PICK THE MEDICATION UP AND PROVIDE IT TO THE REHAB TO BE ADMINISTERED THERE, IF THE FAMILY IS ABLE TO AFFORD IT. Dispenser Operator: Josh Pedersen
--- NOTE | 2016-07-28 21:10 | NUR ---
HS MEDS GIVEN WITH FRESH ICE WATER, BS 121, NO COVERAGE GIVEN PER S/S. PT ASKING FOR REQUIP, INFORMED PT THAT IT WAS NOT ORDERED BUT I WILL CALL DR RAWLS AND ASK FOR IT.
--- NOTE | 2016-07-28 21:30 | NUR ---
REQUIP GIVEN WITH SIP OF WATER, REPOSITIONED IN BED FOR COMFORT, WILL CONT TO MONITOR.
--- NOTE | 2016-07-29 02:52 | NUR ---
RESTING WITH EYES CLSOED, RESPERATIONS EVEN NO S/S DISTRESS NOTED.
[2016-07-29 04:00] VITALS: BP 171/85
[2016-07-29 07:23] LABS: IMMUNOGLOBULIN E 57 IU/mL (0-100)
--- NOTE | 2016-07-29 07:32 | NUR ---
AM ROUNDS- PT IN BED, BLOOD SUGAR OF 112, NO COVERAGE NEEDED PER SLIDING SCALE. IVBP CEFEPIME HUNG AT THIS TIME. PT STATES SHE HAS PAIN TO HER BACK, WILL CHECK TO SEE IF SHE HAS ANYTHING FOR PAIN. NAD NOTED, CALL LIGHT IN REACH, PROFESSIONAL DRIVER AT BEDSIDE TO DO VITAL SIGNS, WILL CONTINUE TO MONITOR.
[2016-07-29 08:17] LABS: IMMUNOGLOBULIN G 491 mg/dL (700-1600)
[2016-07-29 08:54] VITALS: BP 168/76
[2016-07-29 09:16] LABS: BASOPHILS 0 % (0-2); EOSINOPHILS 0 % (0-7); HEMATOCRIT 28.4 % (36.0-48.0); HEMOGLOBIN 9.6 g/dL (12-16); IMMATURE GRANULOCYTES 1.5 % (0-5); MCH 28.6 pg (26.0-34.0); MCHC 33.8 g/dL (31.0-37.0); MCV 84.5 fL (80.0-100.0); MEAN PLATELET VOLUME 9.3 fL (7.4-10.4); MONOCYTES 4.2 % (2-11); NEUTROPHILS 85.3 % (40-80); PLATELET COUNT 265 10x3/uL (130-400); RBC 3.36 10x6/uL (4.00-5.40); RDW 16.7 % (11.5-14.5)
[2016-07-29 09:26] LABS: CALC OSMOLALITY 274 mosm/kg (275-300); CALCIUM 9.2 mg/dL (8.5-10.1); CARBON DIOXIDE 22.3 mmol/L (21.0-32.0); CHLORIDE - SERUM 105 mmol/L (98-107); CREATININE - SERUM 0.5 mg/dL (0.6-1.3); POTASSIUM - SERUM 3.3 mmol/L (3.5-5.1); SODIUM 137 mmol/L (136-145); UREA NITROGEN 14 mg/dL (7-18); eGFR NON AFRICAN AMERICAN > 90 mL/min (90-120)
[2016-07-29 09:27] LABS: GLUCOSE 104 mg/dL (74-106); WBC 6.9 10x3/uL (4.8-10.8)
--- NOTE | 2016-07-29 09:38 | NUR ---
ADMINISTERED MORNING MEDICATIONS, PT IN BED, DENIES ANY NEEDS AT THIS TIME. CALL LIGHT IN REACH, NAD NOTED, WILL CONTINUE TO MONITOR.
--- NOTE | 2016-07-29 11:39 | NUR ---
BLOOD SUGAR OF 150, NO COVERAGE GIVEN PER S/S. CARAFATE GIVEN ORDER. PT IN BED, DENIES ANY NEEDS AT THIS TIME. CALL LIGHT IN REACH, NAD NOTED, WILL CONTINUE TO MONITOR.
[2016-07-29 12:00] VITALS: BP 106/61
--- NOTE | 2016-07-29 13:30 | NUR ---
STREP SAMPLE COLLECTED AT THIS TIME, AND TAKEN TO LAB. ALSO GAVE 500MG OF TYLENOL FOR PAIN LEVEL OF 6/10. AT BEDSIDE, STATED THAT HE WANT TO TALK TO DR. RAWLS. WILL CONTACT DR TO LET HIM KNOW. PT AND FAMILY DENY ANY OTHER NEEDS AT THIS TIME.C ALL LIGHT IN REACH, NAD NNOTED, WILL CONTINUE TO MONITOR.
--- NOTE | 2016-07-29 16:35 | NUR ---
BLOOD SUGAR OF 233, 4 UNITS OF HUMULIN R GIVEN PER S/S. PT IN BED, DENIES ANY NEEDS AT THIS TIME. CALL LIGHT IN REACH, AT BEDSIDE, NAD NOTED, WILL CONTINUE TO MONITOR.
[2016-07-29 16:59] VITALS: BP 146/86
[2016-07-29 19:00] VITALS: BP 138/54
--- NOTE | 2016-07-29 23:51 | NUR ---
PTS L.HAND PIV FELL OUT. CATETHER TIP FULLY INTACT. RESTARTED NEW 22 GUAGE X1 ATTEMPT IN L.WRIST AND RESTARTED IV FLUIDS AND ANBX. PT RESTING QUIETLY IN BED READY TO SLEEP. DENIES ANY FURTHER NEEDS AT THIS TIME. CL IN REACH, BED IN LOWEST, SIDE RAILS X2 AND BUILT IN BED ALARM ON. WILL CTM.
[2016-07-30] VITALS: BP 168/83
[2016-07-30 04:00] VITALS: BP 178/93
[2016-07-30 06:57] LABS: BASOPHILS 0 % (0-2); EOSINOPHILS 0 % (0-7); HEMOGLOBIN 10.1 g/dL (12-16); IMMATURE GRANULOCYTES 1.1 % (0-5); LYMPHOCYTES 6.3 % (15-50); MCH 28.8 pg (26.0-34.0); MCHC 33.7 g/dL (31.0-37.0); MCV 85.5 fL (80.0-100.0); MEAN PLATELET VOLUME 9.4 fL (7.4-10.4); NEUTROPHILS 88.6 % (40-80); PLATELET COUNT 288 10x3/uL (130-400); RBC 3.51 10x6/uL (4.00-5.40); RDW 16.9 % (11.5-14.5); WBC 6.5 10x3/uL (4.8-10.8)
[2016-07-30 07:17] LABS: CALCIUM 8.7 mg/dL (8.5-10.1); CARBON DIOXIDE 21.5 mmol/L (21.0-32.0); CHLORIDE - SERUM 106 mmol/L (98-107); POTASSIUM - SERUM 3.9 mmol/L (3.5-5.1); SODIUM 139 mmol/L (136-145); UREA NITROGEN 12 mg/dL (7-18); eGFR NON AFRICAN AMERICAN 87 mL/min (90-120)
[2016-07-30 07:18] LABS: CALC OSMOLALITY 286 mosm/kg (275-300); CREATININE - SERUM 0.7 mg/dL (0.6-1.3); GLUCOSE 258 mg/dL (74-106)
[2016-07-30 08:00] VITALS: BP 174/86
--- NOTE | 2016-07-30 10:19 | NUR ---
ADMINISTERED MORNING MEDICATIONS, PT TAKES THEM ONE AT A TIME. DENIES ANY NEEDS AT THIS TIME. CALL LIGHT IN REACH, NAD NOTED, WILL CONTINUE TO MONITOR.
--- NOTE | 2016-07-30 11:24 | NUR ---
BLOOD SUGAR OF 263, 6 UNITS OF HUMULIN PER S/S.
[2016-07-30 12:00] VITALS: BP 165/64
[2016-07-30 16:00] VITALS: BP 162/68
--- NOTE | 2016-07-30 16:06 | NUR ---
BLOOD SUGAR OF 183, GAVE 2 UNITS PER SLIDING SCALE. PT DENIES ANY NEEDS AT THIS TIME. CALL LIGHT IN REACH, AT BEDSIDE, NAD NOTED, WILL CONT TO MONITOR.
[2016-07-30 19:00] VITALS: BP 174/53
--- NOTE | 2016-07-30 19:00 | NUR ---
INITIAL ROUNDS MADE. PT SITTING UP IN BED WATCHING TV. ALERT O X3. NO NEEDS OR C/O VOICED AT THIS TIME. CALL LIGHT IN REACH. WILL CONT TO MONITOR.
--- NOTE | 2016-07-30 21:24 | NUR ---
HS MEDS GIVEN WITHOUT DIFFICULTY. CONT TO MONITOR.
[2016-07-31] VITALS: BP 146/87
--- NOTE | 2016-07-31 03:42 | NUR ---
ART OBJECTS REPAIRER AT BEDSIDE FOR VS. NEEDS ADDRESSED AT THIS TIME. CALL LIGHT IN REACH. WILL CONT TO MONITOR.
[2016-07-31 04:00] VITALS: BP 187/70
[2016-07-31 05:34] LABS: BASOPHILS 0 % (0-2); EOSINOPHILS 0.1 % (0-7); HEMATOCRIT 32.4 % (36.0-48.0); HEMOGLOBIN 10.8 g/dL (12-16); IMMATURE GRANULOCYTES 1.3 % (0-5); LYMPHOCYTES 8.2 % (15-50); MCH 28.7 pg (26.0-34.0); MCHC 33.3 g/dL (31.0-37.0); MCV 86.2 fL (80.0-100.0); MEAN PLATELET VOLUME 9.4 fL (7.4-10.4); MONOCYTES 5.8 % (2-11); NEUTROPHILS 84.6 % (40-80); PLATELET COUNT 305 10x3/uL (130-400); RBC 3.76 10x6/uL (4.00-5.40); RDW 16.6 % (11.5-14.5); WBC 7.6 10x3/uL (4.8-10.8)
[2016-07-31 06:42] LABS: CALCIUM 8.7 mg/dL (8.5-10.1); CARBON DIOXIDE 20.3 mmol/L (21.0-32.0); CHLORIDE - SERUM 108 mmol/L (98-107); CREATININE - SERUM 0.6 mg/dL (0.6-1.3); SODIUM 142 mmol/L (136-145); eGFR NON AFRICAN AMERICAN > 90 mL/min (90-120)
[2016-07-31 06:49] LABS: CALC OSMOLALITY 282 mosm/kg (275-300); GLUCOSE 138 mg/dL (74-106); POTASSIUM - SERUM 3.3 mmol/L (3.5-5.1); UREA NITROGEN 8 mg/dL (7-18)
--- NOTE | 2016-07-31 07:40 | NUR ---
AM ROUNDING DONE WITH PATIENT BEING ON HEART MONITOR SHOWING SR, HR 79. LEFT WRIST SEEN WITH NS INFUSING AT KVO WITHOUT PROBLEMS. K+ THIS AM IS 3.3, COVERED WITH ORAL SUPPLEMENT PATIENT IS ON EP. ON ROOM AIR. ASSISTED OFF BEDPAN, SLIGHT EXCORATION SEEN TO BUTTOCK, BUTT PASTE APPLIED. BILATERAL PINK HEEL PROTECTORS ON, BILATERAL HEELS ARE SOFT. PATIENT HAS GENERALIZED WEAKNESS, WILL SET BED ALARM.
[2016-07-31 07:52] VITALS: BP 185/75
[2016-07-31 11:56] VITALS: BP 184/74
--- NOTE | 2016-07-31 13:32 | NUR ---
Nutrition follow-up: Diet: low sodium PO intake ~60% average of last 8 meals Labs reviewed +BM Wt: 135# PO intake fair at this time. RDN will change diet to regular as tolerated to increase po intake. RDN will also order Ensure with meals Following.
--- NOTE | 2016-07-31 14:43 | NUR ---
Patient Name: FOSTER DUQUE Encounter No: [id number] : 1940 Primary Insurance: [facility] Anticipated DC Date: Planned Disposition: Inpatient Rehab External Planned Provider: [facility] DCP follow-up note: CM FAXED REFERRAL TO [facility], ASKED FOR ODER FOR OCCUPATIONAL THERAPY EVALUATION PT HAS MANAGED MEDICARE AND WILL NEED THIS FOR REHAB EVALUATION AND INSURANCE CONSIDERATION. CM SPOKE TO PT AND SPOUSE IN ROOM. BOTH REPORT CONTINUED PLAN OF INPATIENT REHAB AT [facility] IF DR. RAWLS THINKS IT IS BEST PLACEMENT FOR PATIENT. THEY NOW REPORT SECOND CHOICE IS [facility], CHOICE SIGNED. CM DISCUSSED HUMARIA AND THAT THE ONLY WAY TO GET IT IS FOR PT TO RELAY ASSOCIATE AT PHARMACY AND TAKE TO FACILITY TO BE PROVIDED THERE. PT'S SPOUSE REPORTS INABILITY TO AFFORD IT AND THAT HE IS GOING TO CALL THE COMPANY AND REQUEST ASSISTANCE FROM THEM. CM PROVIDED PT'S SPOUSE WITH [employer] CONTACT INFORMATION FOR POSSIBLE ASSISTANCE. CM FAXED REFERRAL TO [facility], . PT'S SPOUSE TO CONTACT [employer] IN REGARDS TO ASSISTANCE PROGRAM FOR THE MEDICATION. CM WAITING ON ADMISSION DETERMINATION FROM [facility] AND [facility]. Josh Pedersen, CASE MANAGEMENT
[2016-07-31 16:14] VITALS: BP 141/68
--- NOTE | 2016-07-31 16:47 | NUR ---
IV TO LEFT HAND STARTING TO INFILTRATE. PER HALEIGH TRUJILLO RN, 22 G TO RIGHT HAND.
--- NOTE | 2016-07-31 17:42 | NUR ---
CALLED TO ROOM FOR PILLOW ADJUSTMENT. DENIES ANY NEEDS.
[2016-07-31 20:00] VITALS: BP 178/71
--- NOTE | 2016-07-31 22:48 | NUR ---
HS MEDS GIVEN WITH FRESH ICE WATER. DENIES PAIN OR NEEDS, BED LOW, CL IN REACH.
--- NOTE | 2016-08-01 01:36 | NUR ---
ASSIST WITH USE OF BED JUSTICE.
--- NOTE | 2016-08-01 03:26 | NUR ---
RESTING WITH EYES CLOSED, RESPERATIONS EVEN, NO S/S DISTRESS NOTED.
[2016-08-01 04:00] VITALS: BP 194/76
--- NOTE | 2016-08-01 07:37 | NUR ---
AM ROUNDING DONE WITH PATIENT ON BEDPAN TO VOID, REMOVED HER OFF IT. ON HEART MONITOR SHOWING SR, HR 67. RIGHT HAND SEEN WITH NS INFUSING AT KVO WITHOUT PROBLEMS. ON ROOM AIR. ON EP, LAB HAS BEEN ORDERED. BILATERAL PINK HEEL PROTECTORS ON, HEELS ARE SLIGHTLY SOFT. PILLOW PLACED UNDER LEGS TO BRDIGE HEELS. PATIENT GETS UP WITH THERAPY. WILL MONIOR.
[2016-08-01 07:59] LABS: MAGNESIUM - SERUM 1.7 mg/dL (1.8-2.4); PHOSPHOROUS 2.3 mg/dL (2.5-4.9); POTASSIUM - SERUM 3.4 mmol/L (3.5-5.1)
[2016-08-01 08:00] VITALS: BP 181/65
--- NOTE | 2016-08-01 08:22 | NUR ---
K+ IS 3.4. COVERED WITH 40 MEQ LIQUID PER PROTOCOL.
--- NOTE | 2016-08-01 10:35 | NUR ---
Patient Name: FOSTER DUQUE Encounter No: [id number] : 1940 Primary Insurance: [facility] Anticipated DC Date: Planned Disposition: [facility] FACILITY External Planned Provider: [facility] DCP follow-up note: CM RECEIVED CALL FROM [facility], THEY HAVE COMPLETED SCREENING, PT HAS NO CMS 13 DIAGNOSIS FOR INPATIENT REHAB, [facility] WILL NOT ACCEPT FOR INPATIENT REHAB AND WILL NOT SUBMIT TO INSURANCE AGAIN THEY HAVE BEEN DENIED MULTIPLE TIMES ALREADY. CM CALLED THIAGO OF [facility], , DISCUSSED REFERRAL. PT WILL NOT BE ABLE TO RECEIVE HUMARIA IN [facility] COSTS OF MEDICATION IS TOO MUCH. [facility] ADVISED THAT PT WILL NOT BE ABLE TO FILL AT PHARMACY OUTSIDE OF FACILITY AND HAVE THE MEDICATION THERE. PT WILL NOT BE ABLE TO HAVE "DAY PASS" TO GO TO PHYSICIAN OFFICE TO RECEIVE MEDICATION AND RETURN TO FACILITY; THE ONLY WAY WOULD BE FOR PT TO DISCHARGE FROM REHAB AND READMIT WHICH IS NOT APPROPRIATE. [facility] WILL CONSIDER PT FOR REHAB, PT IS NOT ABLE TO HAVE HUMARIA WHILE IN [facility] FACILITY. CM TO DISCUSS THIS WITH PT / SPOUSE. Josh Pedersen, CASE MANAGEMENT
[2016-08-01 12:00] VITALS: BP 152/86
--- NOTE | 2016-08-01 14:49 | NUR ---
Patient Name: FOSTER DUQUE Encounter No: [id number] : 1940 Primary Insurance: [id number] Anticipated DC Date: 08-04-2016 Planned Disposition: [facility] FACLITY External Planned Provider: [facility], MEDICARE REHAB BED DCP follow-up note: CM RECEIVED CALL FROM [facility]AGO OF [facility], , INFORMED CM THAT PT HAS USED 100% DAYS AND IS IN COPAY DAYS, $164.50 PER DAY. [facility] WILL NOT ACCEPT PT AND CANNOT MEET PT'S NEEDS. CM MET WITH PT AND SPOUSE IN ROOM, DISCUSSED ABOVE INFORMATION. CM INFORMED PT AND SPOUSE THE FOLLOWIN. [facility] WILL NOT ACCEPT PT SHE HAS NO CMS DIAGNOSIS TO QUALIFY FOR INPATIENT REHAB. 2. [facility] PT, CANNOT MEET PT'S NEEDS. 3. HUMARIA CANNOT BE PROVIDED WHILE IN [facility] FACILITY, NO DAY PASSES TO GET AT [facility] OFFICE AND MEDICARE WILL NOT ALLOW OUTSIDE PHARMACY TO FILL PRESCRIPTION FOR PT WHILE PT IS RECEIVING COVERED REHAB SERVICES IN SNF (ALL MEDICATIONS ARE PROVIDED BY THE ACCEPTING FACILITY.) OTHER OPTIONS DISCUSSED. PT'S SPOUSE REPORTS HE HAS RECEIVED AUTHORIZATION FOR HUMARIA ASSISTANCE THROUGH ASSISTANCE PROGRAM. OTHER SKILLED NUSING FACILITIES DISCUSSED. PT'S SPOUSE ASKED FOR REFERRAL TO BE SENT TO [facility] FOR REHAB, HE REPORTS UNDERSTANDING THAT THEY ARE RESPONSIBLE FOR COPAY FOR REHAB SERVICES. CM FAXED REFERRAL FOR REHAB TO [facility], . CM CALLED AND SPOKE TO RUBIO AT [facility] WHO VERIFIED THAT HUMARIA IS TOO EXPENSIVE AND WILL NOT BE PROVIDED IN [facility] FACILITY; DAY PASS IS NOT AN OPTION AND IT CANNOT BE FILLED AT OUTSIDE PHARMACY UNDER MEDICARE / INSURANCE WHILE PT IS IN [facility] FACILITY. PT / SPOUSE NOTIFIED, PT'S SPOUSE WILL SPEAK TO [facility] REGARDING MEDICATION OPTIONS FOR DISCHARGE TO [facility] REHAB. CM WAITING ADMISSION DETERINATION AND INSURANCE AUTH FROM [facility] / [facility]. HUMARIA IS NOT AN OPTION FOR PT WHILE IN REHAB. Josh Pedersen, CASE MANAGEMENT
[2016-08-01 16:00] VITALS: BP 147/65
[2016-08-01 19:00] VITALS: BP 150/66
--- NOTE | 2016-08-01 23:07 | NUR ---
NURSE ROUNDS 20:15 - PT LYING IN BED, AWAKE, ALERT, ORIENTED, DENIES ANY ACUTE NEEDS. PT CURRENTLY ON BEDPAN, TAKEN OFF. CONTINUE TO MONITOR CLOSELY. BED LOW, CALL LIGHT IN REACH, SIDE RAILS X 2, HOB 20 DEGREES.
[2016-08-02] VITALS: BP 147/114
--- NOTE | 2016-08-02 01:02 | NUR ---
PT LYING IN BED, EYES CLOSED, RESPIRATIONS EVEN AND UNLABORED. CONTINUE TO MONITOR CLOSELY.
--- NOTE | 2016-08-02 03:52 | NUR ---
PT RESTING COMFORTABLY, EYES CLOSED, RESPIRATIONS EVEN AND UNLABORED, EASILY ROUSABLE TO VERBAL STIMULI. CONTINUE TO MONITOR CLOSELY.
[2016-08-02 04:00] VITALS: BP 184/62
[2016-08-02 05:56] LABS: BASOPHILS 0.2 % (0-2); EOSINOPHILS 0.4 % (0-7); HEMATOCRIT 37.2 % (36.0-48.0); HEMOGLOBIN 12.1 g/dL (12-16); IMMATURE GRANULOCYTES 4.6 % (0-5); LYMPHOCYTES 12.3 % (15-50); MCH 28.3 pg (26.0-34.0); MCHC 32.5 g/dL (31.0-37.0); MCV 86.9 fL (80.0-100.0); MEAN PLATELET VOLUME 9.4 fL (7.4-10.4); MONOCYTES 6.4 % (2-11); NEUTROPHILS 76.1 % (40-80); PLATELET COUNT 334 10x3/uL (130-400); RBC 4.28 10x6/uL (4.00-5.40); RDW 16.7 % (11.5-14.5); WBC 9.2 10x3/uL (4.8-10.8)
[2016-08-02 06:17] LABS: CALC OSMOLALITY 277 mosm/kg (275-300); CHLORIDE - SERUM 104 mmol/L (98-107); CREATININE - SERUM 0.7 mg/dL (0.6-1.3); GLUCOSE 106 mg/dL (74-106); POTASSIUM - SERUM 3.5 mmol/L (3.5-5.1); SODIUM 139 mmol/L (136-145); UREA NITROGEN 13 mg/dL (7-18); eGFR NON AFRICAN AMERICAN 87 mL/min (90-120)
[2016-08-02 07:00] VITALS: BP 119/71
[2016-08-02 12:00] VITALS: BP 163/57
--- NOTE | 2016-08-02 13:30 | NUR ---
PATIENTS SPOUSE CALLED ME INTO THE ROOM. HE STATED THAT HE TOURED [facility] TODAY AND HE IS VERY CONCERNED ABOUT THE QUALITY OF PHYSICAL THERAPY THE PATIENT WOULD RECEIVE BASED ON THE FACT THAT MOST OF THEIR EQUIPMENT IS BEING USED FOR STORAGE. HE REQUESTED THAT [facility] BE CALLED TO GIVE THEM NOTICE THAT HE WANTED TO COME AND TOUR THE REHAB PART. CALL WAS PLACED, SPOKE WITH NITZA HANNAH TO [facility] BEING OUT. SHE STATED THAT THEY WOULD BE GLAD TO LET HIM TOUR. SHE EXPLAINED THAT THE PATIENT WOULD BE IN CO-PAY DAYS IF THEY CHOSE THEIR FACILITY. EXPLAINED PER MATILDE'S NOTES, THIS HAS ALREADY BEEN EXPALINED TO THE PATIENT AND HER SPOUSE. SHE STATED OK, AND WILL BE LOOKING FOWARD TO GREETING THE SPOUSE SHORTLY. SPOUSE WILL COME BACK AND LET CM KNOW OF HIS DECISION.
--- NOTE | 2016-08-02 14:37 | NUR ---
@ [phone] RECEIVED A CALL FROM [place] AT [facility]. KIMBERLY DUQUE WAS AT THE FACILITY FOR A TOUR AND WANTED TO SPEAK TO ME. HE STATED THAT THIS FACILITY WAS MUCH BETTER EQUIPPED TO TAKE CARE OF HIS . [facility] AND ASKED TO REMOVE HER FROM THE REFERRAL LIST AND THAT I TRY TO GET HER INTO [place]. @[phone] CALLED ANS SPOKE ROBER GONSALVES AT [facility]. EXPLAINED THE SPOUSES WISHES, AND SHE STATED THAT SHE WOULD REMOVE HER FROM THE LIST. @RECEIVED A CALL FROM LEBRON AT [facility]. SHE STATED THAT THE HUMARA WAS NOT THE ONLY REASON THEY WERE NOT ORIGINALLY GOING TO BE ABLE TO TAKE THE PATIENT THE SPOUSE BELIEVES, AND SHE REQUESTED ADDITIONAL INFORMATION THAT SHE WOULD BE ABLE TO PRESENT TO HER DON TO SEE IF THEY CAN ACCEPT HER. INFORMATION WILL BE FAXED TO HER AT [phone].
--- NOTE | 2016-08-02 15:23 | NUR ---
ASSISTED PT ONTO BEDPAN. PT VOIDED CLEAR YELLOW URINE. PT DENIES ANY FURTHER NEEDS AT THIS TIME. CL IN REACH, BED IN LOWEST, SIDE RAILS X2. WILL CTM.
[2016-08-02 16:00] VITALS: BP 125/73
--- NOTE | 2016-08-02 18:42 | NUR ---
R.HAND PIV STARTED HURTING PT. NO S/S OF INFILTRATION NOTED BUT PT IS WANTING A NEW ONE PLACED. ATTEMPTED X2 AND NO SUCCESS. PT IS WANTING TO WAIT R/T POSSIBLE D/C AND STATES "I DONT THINK I NEED THE IV ANYMORE" WILL HAVE ONCOMING NURSE TRY. CL IN REACH, BED IN LOWEST, SIDE RAILS X2. WILL CTM.
[2016-08-02 19:00] VITALS: BP 136/71
--- NOTE | 2016-08-02 19:50 | NUR ---
REPORT RECEIVED AND CARE ASSUMED. AWAKE AND ALERT LYING IN BED WATCHING TV. DENIES ANY NEEDS AT PRESENT TIME. SHIFT ASSESSMENT COMPLETED PER FLOW SHEET. BED LOW AND CALL LIGHT IN EASY REACH. WILL CONTINUE TO MONITOR CLOSELY.
[2016-08-03] VITALS: BP 156/75
[2016-08-03 04:00] VITALS: BP 182/55
[2016-08-03 05:19] LABS: BASOPHILS 0.3 % (0-2); EOSINOPHILS 0.7 % (0-7); HEMATOCRIT 33.3 % (36.0-48.0); HEMOGLOBIN 10.9 g/dL (12-16); IMMATURE GRANULOCYTES 6.3 % (0-5); LYMPHOCYTES 13.3 % (15-50); MCH 28.5 pg (26.0-34.0); MCHC 32.7 g/dL (31.0-37.0); MCV 87.2 fL (80.0-100.0); MEAN PLATELET VOLUME 9.4 fL (7.4-10.4); MONOCYTES 8.1 % (2-11); NEUTROPHILS 71.3 % (40-80); PLATELET COUNT 342 10x3/uL (130-400); RBC 3.82 10x6/uL (4.00-5.40); RDW 17.1 % (11.5-14.5); WBC 7.3 10x3/uL (4.8-10.8)
[2016-08-03 05:38] LABS: CALC OSMOLALITY 279 mosm/kg (275-300); CALCIUM 8.9 mg/dL (8.5-10.1); CHLORIDE - SERUM 104 mmol/L (98-107); GLUCOSE 129 mg/dL (74-106); POTASSIUM - SERUM 3.5 mmol/L (3.5-5.1); SODIUM 139 mmol/L (136-145); UREA NITROGEN 13 mg/dL (7-18)
[2016-08-03 05:39] LABS: CREATININE - SERUM 0.5 mg/dL (0.6-1.3); eGFR NON AFRICAN AMERICAN > 90 mL/min (90-120)
--- NOTE | 2016-08-03 07:55 | NUR ---
EDVIN RECEIED FROM [facility]. SHE STATED THAT SHE REPRESENTED THE PATIENT INFORMATION TO THE DON AND JUST THE COST OF HER MEDICATIONS ALONE WILL PUT THEM IN THE HOLE. SHE STATED THAT THE PATIENT IS TOO SICK FOR THEM TO MEET HER NEEDS. SHE RECOMMENDED LOOKING AT [facility] FOR THE PATINET. WILL RELAY THIS TO THE SPOUSE.
--- NOTE | 2016-08-03 08:22 | NUR ---
PT RESTING QUIETLY. BREATHING UNLABORED AND EQUAL. DENIES NEEDS AT THIS TIME. INTRODUCED SELF AND PLACE NAME ON WHITE BOARD. SIDE RAILS UP X2, BED IN LOWEST POSITION, FALL SOCKS OFFERED. PT SALINE LOCKED TO RIGHT HAND. WILL CTM.
[2016-08-03 08:57] VITALS: BP 195/91
--- NOTE | 2016-08-03 09:10 | NUR ---
IV MEDS NOT GIVEN AT THIS TIME. IV NOT PATENT AND NEW IV REQUIRED. WILL START IV AND MEDS TO BE GIVEN. WILL CTM.
--- NOTE | 2016-08-03 10:40 | NUR ---
IV CATHETER REMOVED FROM RIGHT HAND WITH CATHETER TIP INTACT. SITE BANDAGED. WILL CTM.
[2016-08-03 12:13] VITALS: BP 160/60
--- NOTE | 2016-08-03 14:11 | NUR ---
SPOKE WITH MR DUNIA ABOUT THE DENIAL AT [facility]. REVIEWED WITH HIM THE REASON FOR DENIAL AT [facility] (PER MATILDE'S NOTES), WE DISCUSSED ALL THE NURSING HOMES HERE IN [place]OWN AND ON THE OUTSKIRTS OF [facility]. HE HAS LEFT TO SEE ABOUT TOURING [facility] AND WILL LET ME KNOW. HE SAID IF THEY HAVE TO , THEY WILL RETURN TO [facility], BUT THE FOOD THERE IS HORRIBLE AND THEY DO NOT CHAN DIETS TO PATIENTS NEEDS. AGAIN, HE WILL LET ME KNOW.
--- NOTE | 2016-08-03 15:34 | NUR ---
SPOUSE HAS TOURED [facility]. HE FEELS THAT THEIR PHYSICAL THERAPY PROGRAM IS LESS THAN OPTIMAL FOR HIS . HE STATED HE WOULD TALK TO THE PATIENT WHEN SHE WOKE UP AND THEY MAY JUST HAVE US SEND HER BACK TO [facility].
[2016-08-03 15:59] VITALS: BP 186/72
--- NOTE | 2016-08-03 17:28 | NUR ---
CALL WAS RECEIVED FROM DR RAWLS. PATIENTS CALLED HIM AND ASKED HIM TO PULL SOME STRINGS AT [facility]. HE WANTED AN UPDATE TO WHAT WAS GOING ON. IT WAS EXPLAINED TO HIM THAT THE PATIENTS SPOUSE FEELS THAT IS THE ONLY FACILITY THAT IS UP TO HIS STANDARDS, AND THEY HAVE REFUSED HER SECONDARY TO HER BEING TO SICK FOR THEM TO MEET HER NEEDS. (EVEN WITH THE HUMIRA OFF THE TABLE). EXPLAINED THAT THE SPOUSE HAS REFUSED ACTIVE REFERRALS AND POTENTIAL REFERRALS SECONDARY TO THE FACILITY BEING SUB PAR IN HIS STANDARDS. EXPLAINED THAT [facility] BUT THE SPOUSE DOES NOT WANT HER TO GO BACK THERE BECAUSE HE SAID THE FOOD IS SUB STANDARD "AND THAT IS BEING NICE". EXPLAINED THAT WE BRIEFLY DISCUSSED FACILITIES OUTSIDE OF THE [place] AND HIS RESPONSE WAS "IF I AM GOING TO DRIVE OVER 40 MINUTES TO SEE HER, THE FACILITY HAS TO BE OF SUPERIOR QUALITY". HE DID NOT GIVE THE OK FOR ME TO START ASSISTING IN THE SEARCH FOR OTHER FACILITIES. DR RAWLS QUESTIONED ABOUT OUR [facility] AND [facility]. IT WAS EXPLAINED THAT THE PATIENT IS REFUSING TO PARTICIPATE IN EVEN 15 MINUTES OF THERAPY HERE ON THE FLOOR, AND WOULD NOT PROBABLY BE ABLE TO DO THE 3 HOURS REQUIRED FOR AN ACUTE SETTING AND [facility], SHE DID NOT HAVE AN ADMITABLE DIAGNOSIS. DR RAWLS IS NOW IN FULL UNDERSTANDING OF THE SITUTATION.
--- NOTE | 2016-08-03 18:55 | NUR ---
PT RESTING QUIETLY. DENIES NEEDS. REPORTED TO GROUP EXERCISE CLASS INSTRUCTOR NURSE.
[2016-08-03 19:00] VITALS: BP 191/76
--- NOTE | 2016-08-03 23:27 | NUR ---
Recieved patient and report, patient alert and oriented, bed in lowest position, and locked, siderails up x 2, call light and bedside table in reach, no acute distress noted, will continue to monitor.
[2016-08-04] VITALS: BP 168/55
[2016-08-04 04:00] VITALS: BP 260/106
[2016-08-04 06:10] LABS: ALBUMIN 1.7 g/dL (3.4-5.0); ALKALINE PHOSPHATASE 115 U/L (46-116); ALT (SGPT) 49 U/L (10-68); BILIRUBIN - TOTAL 0.37 mg/dL (0.2-1.3); CALC OSMOLALITY 284 mosm/kg (275-300); CALCIUM 8.9 mg/dL (8.5-10.1); CARBON DIOXIDE 26.4 mmol/L (21.0-32.0); CHLORIDE - SERUM 107 mmol/L (98-107); CREATININE - SERUM 0.4 mg/dL (0.6-1.3); GLUCOSE 144 mg/dL (74-106); POTASSIUM - SERUM 3.4 mmol/L (3.5-5.1); PROTEIN - SERUM 4.5 g/dL (6.4-8.2); SODIUM 141 mmol/L (136-145); UREA NITROGEN 14 mg/dL (7-18); eGFR NON AFRICAN AMERICAN > 90 mL/min (90-120)
--- NOTE | 2016-08-04 07:29 | NUR ---
AM ROUNDS - PT RESTING QUIETLY. REFUSES SCDS. IV RUNNING AT KVO IN LEFT HAND. BREATHING UNLABORED AND EVEN. SIDE RAILS UP X2, BEDSIDE TABLE IN REACH, CALL LIGHT IN REACH, WILL CONTINUE TO MONITOR.
[2016-08-04 08:56] VITALS: BP 191/72
--- NOTE | 2016-08-04 10:57 | NUR ---
PATIENTS SPOUSE CAME TO THE DESK. HE STATED THAT HE HAS TOURED [facility] AND GAVE ME THE CARD FOR [facility]. HE STATED HE WOULD LIKE A REFERRAL TO BE SENT TO THEM. WILL CALL AND SPEAK TO THE INTAKE PERSON THERE AND FAX INFORMATION.
[2016-08-04 12:00] VITALS: BP 190/67
[2016-08-04 13:16] LABS: LEGIONELLA ANTIGEN - URINE Positive (Negative)
--- NOTE | 2016-08-04 14:46 | NUR ---
HAVE SPOKE WITH LEBRON ZELAYA, [facility]. SHE STATED THAT THE PATIENT HAS BEEN MEDICALLY APPROVED FOR ADMISSION THAT THEY WERE JUST WAITING ON INSURANCE AUTH. SHE QUESTIONED TO WHEN PATIENT COULD BE DISCHARGED. EXPLAINED THAT ORIGINALLY THEY WERE WANTING TO DISCHARGE THIS AM, BUT WE HAD TO FIND PLACEMENT FOR HER FIRST. I EXPLAINED THAT I WOULD CALL DR RAWLS AND MAKE SURE IF SHE COULD STILL DISCHARGE TODAY. SHE WAS IN AGREEMENT. CALL PLACED TO DR RAWLS'S OFFICE. SPOKE WITH HIS NURSE ELIAS AND SHE WILL ASK HIM AND CALL ME BACK.
--- NOTE | 2016-08-04 16:40 | NUR ---
PATIENT HAS BEEN ACCEPTED FOR ADMISSION TO [facility]. CALL PLACED TO DR RAWLS'S OFFICE. SPOKE WITH ELIAS. DR RAWLS WILL GET THE DISCHARGE ORDERS PLACED IN THE COMPUTER. THIS HAS BEEN EXPLAINED TO THE SPOUSE.
[2016-08-04] MEDS ORDERED: PREDNISONE10 MG PO (16:42)
[2016-08-04] MEDS ORDERED: IPRAT-ALBUT 0.5-3 ML UPD (16:44)
[2016-08-04] MEDS ORDERED: PROTONIX40 MG PO (16:45)
[2016-08-04] MEDS ORDERED: LEVAQUIN750 MG PO (16:55)
[2016-08-04 17:00] VITALS: BP 151/61
--- NOTE | 2016-08-04 17:06 | NUR ---
PT TO BE D/C. AFTERNOON MEDS GIVEN. DENIES PAIN AND NEEDS AT THIS TIME. WILL CTM.
--- NOTE | 2016-08-04 18:37 | NUR ---
D/C INSTURCTIONS GIVEN TO PT AND FAMILY. IV D/C WITH CATHETER TIP INTACT, DRESSING APPLIED TO SITE. PT AND FAMILY VERBALIZED UNDERSTANDING. CALLED REPORT TO [facility] NURSE, JILL WILL COME AND SENIOR ACCOUNTING SPECIALIST PT IN 15 MINUTES. DENIES OTHER NEEDS AT THIS TIME WILL CTM UNTIL D/C.
[2016-08-04 19:11] LABS: HISTOPLASMA GAL MANNAN AG SER 0.63 ng/mL (0.00-0.49)
== END 2016-08-04 19:17 | DRG 190 ==
LOC: D.ER 10:35 → D.M2 15:14
PROVIDERS: Emergency Medicine; Internal Medicine Pulmonary Disease; Student in an Organized Health Care Education/Training Program; ADMIT Family Medicine
DX: J44.0 Chronic obstructive pulmonary disease with (acute) lower respiratory infection (principal); J15.6 Pneumonia due to other Gram-negative bacteria; J15.212 Pneumonia due to Methicillin resistant Staphylococcus aureus; E46 Unspecified protein-calorie malnutrition; E87.1 Hypo-osmolality and hyponatremia; K50.90 Crohn's disease, unspecified, without complications; N39.0 Urinary tract infection, site not specified; D62 Acute posthemorrhagic anemia; K92.2 Gastrointestinal hemorrhage, unspecified; J44.1 Chronic obstructive pulmonary disease with (acute) exacerbation; K76.0 Fatty (change of) liver, not elsewhere classified; I10 Essential (primary) hypertension; D64.9 Anemia, unspecified; I08.2 Rheumatic disorders of both aortic and tricuspid valves; I27.2 Other secondary pulmonary hypertension; D50.9 Iron deficiency anemia, unspecified; K21.9 Gastro-esophageal reflux disease without esophagitis; Z86.73 Personal history of transient ischemic attack (TIA), and cerebral infarction without residual deficits; Z87.891 Personal history of nicotine dependence; Z68.21 Body mass index [BMI] 21.0-21.9, adult